=== PATIENT | female | born 1945 | race Caucasian/White ===

== ENCOUNTER → 2018-03-30 14:59 | Outpatient (CLI) | payer MEDICARE, BC, SELFPAY ==
--- NOTE | 2018-03-30 14:59 | DT_ITS ---
This patient was seen during an EMR downtime March 23, 2018 - March 30, 2018. This patient may have a combination of paper and electronic documentation or all paper documentation. All documentation is viewable within the e-chart portion of [employer] for each patient visit.
[2018-03-30 17:55] LABS: Hemoglobin 14.8 g/dl (12.0-15.0); Mean Corp Hgb Conc 33.6 g/gl (32-36); Mean Corpuscular Hgb 32.3 pg (27.0-32.0); Mean Corpuscular Volume 96.1 fL (81-99); Mean Platelet Vol. 11.1 fl (6.2-12.0); Platelet Count 215 K/mm3 (150-450); RBC Distribution Width CV 13.6 % (11.6-14.6); RBC Distribution Width SD 47.9 fl (35.1-43.9); Red Blood Count 4.58 M/mm3 (4.2-5.4); White Blood Count 7.5 K/mm3 (4.4-11.0)
[2018-03-30 17:58] LABS: CRP 6.02 mg/L (0.0-3.0)
[2018-03-30 18:02] LABS: Scan Indicated on CBC? Y/N NO
[2018-03-30 18:51] LABS: Erythrocyte Sedimentation Rate 21 mm/hr (0-30)
== END ==
PROVIDERS: Family Provider Internal Medicine; PCP Internal Medicine; Visit Provider Internal Medicine Gastroenterology
DX: K50.90 Crohn's disease, unspecified, without complications (principal)
CPT/HCPCS: 36415; 85027; 85652; 86140

== ENCOUNTER 2018-04-27 07:48 | Day surgery (SDC) | payer MEDICARE, BC, SELFPAY ==
[2018-04-27] VITALS (7 sets, daily range): BP systolic 130–168; BP diastolic 54–80; PULSE 68–88; RESP 16–18; TEMP 36.3–36.8; O2SAT 92–99; BMI 29.3
--- NOTE | 2018-04-27 | IMM_PTH ---
PATIENT: ISIDRO GRAMAJO [place] [facility] [id number] AGE/SX: 73/F ROOM: RE04/27/[address]: Dr. Anne Carrasco MD : 1945 BED: DIS: 04/27/2018 SPEC #: [id number] RECD: 04/30/18 12:53 STATUS: DEE REQ #: [id number] CRISTINA: 04/27/18 00:[address]: Anne Carrasco DEPT: IMMUNOHISTOCHEMISTRY RECD BY: Meena Peralta ENTERED: 04/30/18 12:54 SP TYPE: IMMUNO OTHR DR: Dr. Lloyd Lewis MD Tissues: A - Axillary lymph node, NOS B - Left breast, NOS Procedures: E-CAD (initial) CK7 (add) Pankeratin (initial) Pankeratin (add) PHYSICIAN & INSTITUTION [place] [id number] SPECIMEN INFORMATION: Tissue Source: A ? Left axillary sentinel lymph nodes, B ? Left breast lumpectomy Clinical Info: Left breast cancer Specimen Number: [id number] A1-A3, B3 CPT code: 30608 x2, 53192 x5 METHODOLOGY: Deparaffinized sections of prefer/formalin-fixed tissue or PAP/DQ stained slides are incubated with monoclonal/polyclonal antibodies/oligonucleotide probes. Localization is made via biotin free immunoperoxidase method. Appropriate controls are performed and reacted as expected. Results on target cell population are indicated in the following table: RESULTS: ANTIBODY / CLONE RESULT Block A1 AE1-3 (AE1/AE3/PCK26) negative CK7 (OV-TL12/30) negative Block A2 AE1-3 (AE1/AE3/PCK26) negative CK7 (OV-TL12/30) negative Block A3 AE1-3 (AE1/AE3/PCK26) negative CK7 (OV-TL12/30) negative Block B3 E-Cad (ECH-6) positive These tests were developed and their performance characteristics determined by [facility]. They may not have been cleared or approved by the U.S. Food and Drug Administration. The FDA has determined that such clearance or approval is not necessary. INTERPRETATION: A. Left axillary sentinel lymph nodes, biopsy: Three out of three lymph nodes, negative for metastatic carcinoma. B. Left breast, lumpectomy: Invasive ductal carcinoma. SJ:carter 05/04/18
--- NOTE | 2018-04-27 | AXNB_PTH ---
PATIENT: ISIDRO GRAMAJO LOC: [facility] – [place] U#:[id number] AGE/SX: 73/F ROOM: RE04/27/[address]: Dr. Anne Carrasco MD : 1945 BED: DIS: 04/27/2018 SPEC #: [id number] RECD: 04/27/18 13:42 STATUS: DEE REJusten #: [id number] CRISTINA: 04/27/18 00:[address]: Anne Carrasco DEPT: SURGICAL PATHOLOGY RECD BY: Meena Peralta ENTERED: 04/27/18 14:43 SP TYPE: AX NODE BX OTHR DR: Dr. Lloyd Lewis MD Tissues: A - Axillary lymph node, NOS B - Left breast, NOS Procedures: Frozen Section (charge) Frozen Section Add'l ([facility]) Surgery Specimen Level V HEADER OPERATION: Left breast lumpectomy after needle localization, left axillary sentinel lymph nodes PRE-OP DIAGNOSIS: Left breast cancer TISSUE SUBMITTED: A ? Left breast axillary lymph node sent to lab at 1338 FS, B ? Left breast lumpectomy (left OR for mammography at 1417), long suture ? medial, two short sutures ? lateral, one short suture - superior FROZEN SECTION DIAGNOSIS A. Left axillary sentinel lymph nodes: Three out of three lymph nodes, negative for metastatic carcinoma. SJ:carter 04/27/18 MICROSCOPIC DIAGNOSIS A. Left axillary sentinel lymph nodes, biopsy: Three out of three lymph nodes, negative for metastatic carcinoma. See comment. B. Left breast, lumpectomy with needle localization: Invasive ductal carcinoma. See comment. See cancer summary below. INVASIVE BREAST CANCER SUMMARY: Specimen ? partial breast Procedure ? excision with wire-guided localization Lymph node sampling ? sentinel lymph nodes Specimen integrity ? single intact specimen Specimen size ? 7.5 x 4.5 x 2 cm Specimen laterality - left Tumor site ? 6 o?clock, middle depth (as per EMR). Tumor size ? 1.5 x 1.5 x 1 cm Tumor focality ? single focus of invasive carcinoma Macroscopic and Microscopic extent of tumor: Skin ? not present Nipple ? not applicable Skeletal muscle ? present and free of carcinoma. Ductal carcinoma in situ (DCIS) ? no DCIS is present. Histologic type of invasive carcinoma - invasive ductal carcinoma. Histologic Grade (Eliud grade): Glandular/tubular differentiation - score 2 Nuclear pleomorphism - score 1 Mitotic count ? score 1 Overall grade - (score of ) Margins - Margins are uninvolved by invasive carcinoma. The tumor is 0.5 cm away from the closest posterior margin. Treatment effect: Response to presurgical (neoadjuvant) therapy - no known presurgical therapy. Lymph-Vascular invasion ? not identified Dermal lymph-vascular invasion ? not applicable Lymph nodes: Number of sentinel lymph nodes examined - 3 Total number of lymph nodes examined (sentinel and nonsentinel) - 3 Number of lymph nodes with macrometastases, micrometastases and isolated tumor cells - 0 Method of evaluation of sentinel lymph nodes - H & E, multiple levels and IHC. Distant metastasis ? not applicable Additional pathologic findings ? fibrocystic changes Ancillary studies - previously performed on section of tumor ([facility] [id number]). ER ? Positive (>95% of nuclei staining, strong) [place] - Positive (70% of nuclei staining, moderate) Her2 veronika ? Negative (0) Her2 by dual INO ? not performed Microcalcifications ? not identified Clinical history ? 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 ([facility] [id number]) PATHOLOGIC STAGE: pT1c pN0(sn) Mx The above summary is in compliance with [employer] (CAP) Cancer Protocols Checklist and [place] Joint Committee on Cancer (AJCC), Staging Manual, 8th Ed. SJ:carter 05/01/18 COMMENT A. The lymph nodes are negative for metastatic carcinoma on multiple H & E levels and immunohistochemical stains for cytokeratins ([id number]). B. Immunohistochemistry ([id number]) supports the above diagnosis. Case has been reviewed in consultation with Dr. Lemos who concurs with the above diagnosis. IDC:AM MICROSCOPIC DESCRIPTION Slides are reviewed. GROSS DESCRIPTION A - Received fresh for frozen section diagnosis labeled with the patient's name is a specimen designated left breast axillary lymph node. The specimen consists of a piece of yellow adipose tissue measuring 5 x 3 x 1 cm. Three nodules consistent with lymph nodes are identified measuring 0.5 to 3 cm in greatest dimension. The lymph nodes are submitted for frozen section diagnosis in entirety as follows: 1 ? frozen section, two lymph nodes, one lymph node inked black, 2 & 3 ? frozen section, one lymph node. / SJ:carter 04/27/18 B - Received fresh for intraoperative consultation labeled with the patient's name and designated left breast lumpectomy. The specimen consists of a piece of cantrell-yellow fibroadipose tissue with needle localization measuring 7.5 x 4.5 x 2 cm. The specimen is oriented as follows: long suture ? medial, two short sutures ? lateral, one short suture ? superior. The specimen is inked as follows: anterior ? yellow, posterior ? black, superior ? blue, inferior ? green, medial ? red and lateral ? orange. Serial sections reveal a cantrell, indurated tumor mass measuring 1.5 x 1.5 x 1 cm. This mass is 0.6 cm away from the closest posterior margin. This information is conveyed to the surgeon intraoperative. Sections of the rest of the specimen reveal cantrell-yellow adipose cut surfaces mixed with fibrous area. Cardiology Nurse Practitioner sections are submitted in 12 cassettes as follows: 1 & 2 ? resection margins, 2-8 ? entire tumor (2 & 3 ? tumor wire closest posterior margin), 9 ? new accounts banking representative section adjacent to the tumor, 10-12 ? new accounts banking representative sections away from the tumor. Sections will be submitted after infusion cycle. / SJ:carter 04/28/18 TC:0 CPT: 26667, 83191, 76639 x2, 28888 x2
--- NOTE | 2018-04-27 06:50 | NM_ITS ---
PROCEDURE: NUCLEAR MEDICINE Injection [place] Node - LEFT breast(s). REASON FOR EXAM: Female, 73 years old. History of breast cancer. TECHNIQUE: [place] node localization using radionuclide methods of the LEFT breast(s) was performed following subcutaneous administration of 1.1 mCi of of sulfur colloid Tc-99m. FINDINGS: 1.1 mCi of technetium labeled sulfur colloid was injected subcutaneously in 4 equal aliquots in the lower inner quadrant of the left breast. NM/Lymph Node Injection Only IMPRESSION: 1.1 mCi of technetium sulfur colloid injected in the lower inner quadrant of the left breast. Electronically Signed: Ike Martinez MD at 12:50 EDT Tel [phone], Service support ,
--- NOTE | 2018-04-27 07:49 | BI_ITS ---
SURGICAL BREAST SPECIMEN RADIOGRAPH CLINICAL: Document presence of tissue clip marker in biopsy specimen. FINDINGS: Specimen shows presence of tissue clip marker. Electronically Signed: Ike Martinez MD at 14:40 EDT Tel [phone], Service support , BI/Breast Biopsy Specimen
--- NOTE | 2018-04-27 12:39 | PCM.DC.BS ---
Discharge Diet: No Restrictions Discharge Activity: Return to Normal Activity, May not drive while taking narcotic pain medications. Lifting Restrictions: no lifting with left arm greater than 10 pounds until further notice Call your doctor if your incision/area has: Continuous Slow Oozing, Foul Smelling Discharge Call your doctor if you observe: Fever of 101 or Higher Additional Dressing/Incision Instructions:: Leave dressings in place. May get wet in shower. Do not soak - no tub baths/swimming Allergies/Adverse Reactions: Allergies No Known Allergies Allergy (Verified 04/10/18 08:26) Medications to take at Discharge Calcium Carbonate/Vitamin D3 [Caltrate 600 Plus D3 Tablet] 1 each PO DAILY 04/10/18 Diphenhydramine HCl [Allergy] 25 mg PO BID 04/10/18 Metoprolol/Hydrochlorothiazide [Lopressor Hct 100/25 (beta shaun)] 1 tablet PO DAILY 04/10/18 Multivit-Min/Iron/Folic/Lutein [Centrum Silver Women Tablet] 1 each PO DAILY 04/10/18 Primary Care Physician: Lloyd Lewis MD [Primary Care Provider] - Please Follow Up With: Anne Carrasco MD - call When: to be seen next week, please call for date and time, thank you
--- NOTE | 2018-04-27 12:46 | OP.PN_ITS ---
Immediate Post-Op Note Date of Procedure: 04/27/18 Primary Surgeon/Physician: Anne Carrasco childhood teacher: NOT,DEFINED Pre-Operative Diagnosis: left breast cancer Post-Operative Diagnosis: same Surgery/Procedure Performed:: left breast lumpectomy via wire localization, left breast sentinel lymph node biopsy Description of Surgical Findings:: inferior breast lesion at 6:00, frozen section posterior border 0.6 cm - closest , 3/3 lymph node negative Estimated Blood Loss: 30 ml Specimen's removed: left breast lumpectomy tissue, left axillary lymph rick tissue Type of Anesthesia:: General ASA Class: ASA2 Mod Systematic Disease - Admit VTE Documentation VTE Present on Admission: Yes VTE Mechan Device Prophylaxis: SCD's
[2018-04-27] MEDS: Methylene Blue 1% 100 MG/10 ML VIAL (12:48)
[2018-04-27] MEDS: Cefazolin 2 GM in 0.9% Normal Saline 100 ML IV (12:48)
[2018-04-27] MEDS: Bupiv/Epi 0.5% Mpf 30 ML Vial INFILT (13:11)
--- NOTE | 2018-04-27 14:49 | OP.PCM_ITS ---
Report of Operation Date of Procedure: 04/27/18 Pre-Operative Diagnosis: left breast cancer Post-Operative Diagnosis: same Surgery/Procedure Performed:: left breast lumpectomy via wire localization, left breast sentinel lymph node biopsy Description of Surgical Findings:: inferior breast lesion at 6:00, frozen section posterior border 0.6 cm - closest , 3/3 lymph node negative multilith operator: NOT,DEFINED Type of Anesthesia:: General Anesthesiologist: Rogelio Cristobal Specimen's removed: left breast lumpectomy tissue, left axillary lymph rick tissue Estimated Blood Loss (mL): 30 ml Fluids Replaced: 1400 ml RL Description of Procedure: After informed consent was given, the patient was brought into the Breast Stereotactic Radiology suite and placed in the prone position on the Suh stereotactic table. The patient?s left breast was placed in the opening at the head of the table. A windows systems admin compression mammogram was then obtained in the lateral view. The marker clip that was previously placed was identified. Stereo pictures of the lesion were then taken for XYZ coordinates. The Kopans needle was then positioned where it would be entering into the patient?s breast. The skin at this site was then cleansed with a surgical skin preparation. The skin and subcutaneous tissues at this site were then infiltrated with 1% xylocaine. The Kopans needle was then positioned into the patient?s breast at the proper coordinates of depth. The patient was then placed in the supine position and the wire was taped into place. A unilateral mammogram in the CC and MLO view were then taken for use in the OR. The patient tolerated this portion of the procedure well and was brought to the AC awaiting surgery in the OR. The patient was then brought to the Operating Room and placed on the operating table in the supine position. Appropriate time out protocol was followed. The patient was then placed under anesthesia. Methylene blue dye, diluted 1:1, was then injected in the periareolar area of the patient's left breast - 2.5 cc was used. The breast was then gently massaged for at least 3 minutes. The patient' s chest and neck area were then prepped with a sterile surgical skin preparation which was allowed to dry for the appropriate time period. Sterile surgical drapes were then placed. The skin and subcutaneous tissues at the incision site was then infiltrated with local anesthetic. A skin incision was made in the inferior portion of the hair bearing area of the left axilla. It was carried through to the subcutaneous tissues using electrocautery. Any hemorrhage was controlled with electrocautery. A Weitlaner retractor was used for increased operative exposure. The blue lymphatic vessels were then followed by blunt dissection. The Neoprobe transducer was brought into the operative field. 10 second count over the tumor was 244. 10 second count over the liver was 3. 10 second count in the axilla was 55. Dissection continued to the location as identified by the Neoprobe. Palpable rick tissue was noted. Blunt dissection then continued to separate this tissue from the surrounding tissues. Ligaclips were used for vessels and lymphatics. The rcik tissue was thus and brought out of the wound. Very faint bluish nodule was noted. 10 second count of the rick tissue was 47. It was forwarded to pathology for analysis. Frozen section revealed 3 lymph nodes negative for metastatic disease. The neoprobe was placed back in the axillary wound. 10 second count was 9. The axillary contents were then gently palpated for any palpable abnormality - none was found. Hemostasis was controlled by electrocautery. Shawn was placed in the axillary cavity. The deep fascia was approximated with interrupted vicryl suture. The dermal edges were reapproximated with 3-0 vicryl suture in a horizontal mattress fashion and then the skin was reapproximated with running 4- 0 monocryl in a subcuticular fashion. Cavilon and steristrips were then placed to reinforce the skin closure and proper sterile dressings were applied. The left breast lumpectomy was approached next. A wire had already been placed in the stereotactic biopsy room in the radiology department as described above. The left breast with the wire in placed was then carefully palpated out to ascertain the direction of the wire. The mammograms were also reviewed to further facilitate this. The skin and subcutaneous tissues at the site of the chosen incision site was then infiltrated with local anesthetic. A transverse incision was then made at the lower half aspect of the breast. This was made with a 15 blade scalpel and carried down through to the subcutaneous tissues. Hemostasis was controlled with electrocautery. The wire was then palpated out and the tissue surrounding it was duly noted. The breast tissue surrounding the wire was the carefully from the surrounding breast tissue with blunt and sharp dissection. This was carefully done to maintain the integrity of the biopsy cavity and also achieving a proper margin around the site. The breast tissue, once from the breast, was then forwarded to the radiology department, where a specimen mammogram revealed that the marker was within the specimen. I noted this. The breast tissue was then forwarded to pathology for analysis. Pathology review revealed that the closest margin was posterior but clear. The wound cavity was carefully examined. No further suspicious tissue was palpated or visualized. Hemostasis was carefully controlled with electrocautery. The subdermal tissues were then approximated with vicryl suture. The incision was then reapproximated close using running monocryl suture. Cavilon and steristrips were then placed to reinforce the skin closure. A sterile dressing was then applied. The patient was then brought to the Recovery Room in stable condition. - Complications none noted - Admit VTE Documentation VTE Present on Admission: Yes VTE Mechan Device Prophylaxis: SCD's
[2018-04-27] MEDS: HYDROcodone Bitartrate/Apap 5/325 Tablet PO (16:37)
== END 2018-04-27 17:21 | disposition home or self-care (01) ==
LOC: SDC 07:49 → AC 07:50
PROVIDERS: Family Provider Internal Medicine; PCP Internal Medicine; Visit Provider Surgery
PROC: (CPT 19301; principal; 2018-04-27 10:15)
DX: C50.512 Malignant neoplasm of lower-outer quadrant of left female breast (principal); K50.90 Crohn's disease, unspecified, without complications; F32.9 Major depressive disorder, single episode, unspecified; D64.9 Anemia, unspecified; F17.200 Nicotine dependence, unspecified, uncomplicated; I10 Essential (primary) hypertension; Z17.0 Estrogen receptor positive status [ER+]
CPT/HCPCS: 19301; 19281; 38792; 76098; 88305; 88307; 88331; 88332; 88341; 88342; A9541; J7050; J7120; J2405; J3490

== ENCOUNTER → 2018-09-28 08:49 | Outpatient (CLI) | payer MEDICARE, BC, SELFPAY ==
[2018-09-28 10:19] LABS: Absolute Lymphocyte Count 1.33 X10^3/ul (0.83-4.51); Absolute Neutrophil Count 4.6 X10^3/uL (2.0-7.7); Basophil# 0.02 X10^3/uL; Basophil% 0.3 % (0-1); Eosinophil# 0.09 X10^3/uL; Eosinophils% 1.3 % (0-5); Hematocrit 41.4 % (37-47); Hemoglobin 14.2 g/dl (12.0-15.0); Lymphocyte # 1.33 X10^3/ul (4.0); Lymphocyte % 19.7 % (19-41); Mean Corp Hgb Conc 34.3 g/gl (32-36); Mean Corpuscular Hgb 32.8 pg (27.0-32.0); Mean Corpuscular Volume 95.6 fL (81-99); Mean Platelet Vol. 10.7 fl (6.2-12.0); Monocyte# 0.68 X10^3/uL; Monocyte% 10.1 % (0-10); Neutrophil # 4.63 X10^3/uL (2.7-7.7); Neutrophil % 68.5 % (47-70); Platelet Count 214 K/mm3 (150-450); RBC Distribution Width CV 14.2 % (11.6-14.6); RBC Distribution Width SD 47.4 fl (35.1-43.9); Red Blood Count 4.33 M/mm3 (4.2-5.4); White Blood Count 6.8 K/mm3 (4.4-11.0)
[2018-09-28 10:20] LABS: POSITIVE COUNT NO; POSITIVE DIFFERENTIAL NO; POSITIVE MORPHOLOGY NO
[2018-09-28 10:33] LABS: AST(SGOT) 20 U/L (15-37); Alanine Aminotransfer ALT/SGPT 23 U/L (13-56); Albumin, Serum 3.5 g/dL (3.2-5.0); Alkaline Phosphatase 119 U/L (45-117); Bilirubin, Direct 0.09 mg/dL (0.00-0.30); Globulin 3.8 g/dL (2.2-4.2); Protein, Total 7.3 g/dL (6.4-8.2)
== END ==
PROVIDERS: Family Provider Internal Medicine; PCP Internal Medicine; Referring Provider Internal Medicine Gastroenterology; Visit Provider Internal Medicine Gastroenterology
DX: K50.90 Crohn's disease, unspecified, without complications (principal)
CPT/HCPCS: 36415; 80076; 85025

== ENCOUNTER 2018-11-13 20:37 | Emergency (ER) | payer MEDICARE, BC, SELFPAY ==
[2018-11-13 20:38] VITALS: BP 139/77; PULSE 74; RESP 18; TEMP 37.7; O2SAT 92; BMI 29.1
--- NOTE | 2018-11-13 20:46 | EKG12_ITS ---
Test Reason : Blood Pressure : / mmHG Vent. Rate : 068 BPM Atrial Rate : 068 BPM P-R Int : 136 ms QRS Dur : 074 ms QT Int : 394 ms P-R-T Axes : 000 057 049 degrees QTc Int : 418 ms Normal sinus rhythm Septal infarct , age undetermined Abnormal ECG Confirmed by GENA RICO, JOSE ([id number]), news videotape editor SUKHI CANSECO ([id number]) on 11/17/2018 3:13:09 PM Referred By: JANNA Confirmed By:JOSE AVERY MD
[2018-11-13 20:47] VITALS: O2SAT 92
--- NOTE | 2018-11-13 20:50 | ED.VISSUMM ---
- ER Visit Summary Date of Service: 11/13/18 Chief Complaint: Cough, fever, chills History of Present Illness: The patient is a 73 F who presents to the emergency department with upper respiratory symptoms. Patient states that she has been treated twice over the past 6 weeks for respiratory infection. She states she initially went to urgent care before Lashaun time. She was diagnosed with a URI. She is unsure if she was on antibiotics at that time. She states that she took the medication she was prescribed, but it came back after a few days. She saw Dr. Lewis in the office. She was diagnosed with sinusitis and placed on amoxicillin. She states she took it for 7 days. She was doing well until Friday of this week. She began to have cough with productive sputum. She is also had chills and sweats. She does have a history of Crohn's disease but is on no medication. She does have a significant smoking history does continue to smoke, but has never been diagnosed with asthma or COPD. Physical Examination: Vital signs reviewed General: Well-nourished, well-developed Head: Normocephalic, atraumatic Eyes: Pupils equal and reactive, extraocular muscles intact Neck, supple, no lymphadenopathy Heart: Regular rate and rhythm Respiratory: No distress, wheezing throughout Abdomen: Soft, nontender, nondistended, no peritoneal signs Back: Nontender Extremities: Nontender, no edema, no cords Skin: Normal color no rash Neuro: Alert and oriented, no focal or lateralizing deficits Test Results: [] Emergency Department Course and Treatment: The patient presents with cough and wheezing. She does have a significant history of smoking. She is not hypoxic. The patient was given Solu-Medrol, fluids, and nebulized breathing treatments. She did have improvement of aeration. Screening labs are obtained were unremarkable. X-ray shows no focal infiltrative process. The patient was ambulated through the emergency department. She did have pulse ox is 90% or greater. She had no tachypnea. At this time, I do feel that she is safe for outpatient therapy. My suspicion is that she likely has underlying COPD given her significant smoking history and chronic changes on her x-ray. I am going to treat her with doxycycline, an inhaler, and prednisone. She was counseled concerning symptoms and reasons to return. She will be discharged home. Treatment Plan: [] Disposition: Discharge Impression: 1. Acute bronchitis This note was generated with [employer] dictation software. It may contain incorrect words, spelling, and punctuation that were not noted in review of the chart prior to signing ED Disposition - Plan for ED Patient: Chief Complaint: Cough Instructions: ED Upper Resp Infec Abx Tx Prescriptions: Albuterol Inhaler [Ventolin Hfa] 2 puff INHALATION Q4H PRN PRN #1 inhaler PRN Reason: Wheezing Prednisone [Deltasone] 40 mg PO DAILY #10 tab Doxycycline 100 mg PO BID #20 cap Referrals: Lloyd Lewis MD [Primary Care Provider] -
[2018-11-13] MEDS: MethylPREDNISolone 125 MG/2 ML Vial IV (21:03)
[2018-11-13 21:10] LABS: Absolute Neutrophil Count 3.9 X10^3/uL (2.0-7.7); Basophil# 0.01 X10^3/uL; Basophil% 0.2 % (0-1); Differential Indicated SCAN CRITERIA MET; Eosinophil# 0.01 X10^3/uL; Eosinophils% 0.2 % (0-5); Hematocrit 38.7 % (37-47); Hemoglobin 12.9 g/dl (12.0-15.0); Lymphocyte % 7.9 % (19-41); Mean Corp Hgb Conc 33.3 g/gl (32-36); Mean Corpuscular Hgb 31.8 pg (27.0-32.0); Mean Corpuscular Volume 95.3 fL (81-99); Mean Platelet Vol. 9.8 fl (6.2-12.0); Monocyte# 0.76 X10^3/uL; Neutrophil # 3.89 X10^3/uL (2.7-7.7); Neutrophil % 76.5 % (47-70); POSITIVE COUNT NO; POSITIVE DIFFERENTIAL YES; POSITIVE MORPHOLOGY NO; Platelet Count 171 K/mm3 (150-450); RBC Distribution Width CV 14.6 % (11.6-14.6); RBC Distribution Width SD 50.4 fl (35.1-43.9); Red Blood Count 4.06 M/mm3 (4.2-5.4); White Blood Count 5.1 K/mm3 (4.4-11.0)
[2018-11-13 21:14] VITALS: PULSE 80; RESP 18
[2018-11-13] MEDS: Ipratropium/Albuterol Sulfate 3 ML AMPUL.NEB INHALATION (21:14)
[2018-11-13] MEDS: Albuterol 2.5 MG/3 ML VIAL.NEB. INHALATION ×2 (21:14)
[2018-11-13 21:19] LABS: Anion Gap 8 (5-15); BUN 20 mg/dL (7-18); BUN/Creat Ratio 16.7 RATIO (10-20); Calcium,Total 8.8 mg/dL (8.5-10.1); Chloride 105 mmol/L (98-107); EST Glomerular Filtration Rate 47 mL/min (>60); Est Glom Filt Rate - Afr Amer 57 mL/min (>60); Estimated Creatinine Clearance 36.59 ml/min; Glucose 107 mg/dL (74-106); Potassium 3.4 mmol/L (3.5-5.1); Sodium Level 138 mmol/L (136-145)
[2018-11-13 21:36] LABS: Differential Comment SCANNED
--- NOTE | 2018-11-13 21:45 | RAD_ITS ---
STUDY: X-RAY CHEST REASON FOR EXAM: Female, 73 years old. Cough TECHNIQUE: Frontal and lateral views COMPARISON: None. FINDINGS: The lungs are expanded. Pleural thickening at the apices. Interstitial prominence of the lungs. There is a faint nodular density in the left lung base measuring 9 mm. Normal size heart. Normal mediastinum and bryce. Normal visualized pulmonary arteries. Calcified aortic arch and descending thoracic aorta. Slightly increased kyphosis of the thoracic spine. Normal visualized ribs, clavicles, and shoulders. Surgical clips over the left axilla. There is no demonstrated abnormality of the visualized soft tissue structures of the upper abdomen. RAD/Chest PA and Lateral IMPRESSION: Interstitial prominence. Faint nodular density over the left lung base. Electronically Signed: Bam Suarez DO at 22:50 EST Tel [phone], Service support ,
[2018-11-13 22:38] VITALS: BP 134/61; PULSE 67; RESP 19; O2SAT 91
[2018-11-13 22:56] VITALS: BP 132/61; PULSE 67; RESP 17; O2SAT 91
[2018-11-13] MEDS: Doxycycline 100 MG CAPSULE PO (23:12)
== END 2018-11-13 23:13 | disposition home or self-care (01) ==
LOC: ED 21:27
PROVIDERS: Emergency Provider Emergency Medicine; Family Provider Internal Medicine; PCP Internal Medicine
DX: J20.9 Acute bronchitis, unspecified (principal); K50.90 Crohn's disease, unspecified, without complications; Z72.0 Tobacco use
CPT/HCPCS: 71046; 80048; 85025; 87804; 93005; 94640; 96361; 96374; 99285; J7040; A4216

== ENCOUNTER → 2019-02-17 11:55 | Outpatient (CLI) | payer MEDICARE, BC, SELFPAY ==
[2019-02-17 14:16] LABS: Absolute Lymphocyte Count 1.66 X10^3/ul (0.83-4.51); Absolute Neutrophil Count 3.1 X10^3/uL (2.0-7.7); Basophil# 0.03 X10^3/uL; Basophil% 0.5 % (0-1); Eosinophil# 0.11 X10^3/uL; Hematocrit 37.7 % (37-47); Hemoglobin 12.7 g/dl (12.0-15.0); Lymphocyte # 1.66 X10^3/ul (4.0); Lymphocyte % 29.7 % (19-41); Mean Corp Hgb Conc 33.7 g/gl (32-36); Mean Corpuscular Hgb 31.5 pg (27.0-32.0); Mean Corpuscular Volume 93.5 fL (81-99); Mean Platelet Vol. 10.8 fl (6.2-12.0); Monocyte# 0.64 X10^3/uL; Monocyte% 11.5 % (0-10); Neutrophil # 3.13 X10^3/uL (2.7-7.7); Neutrophil % 56.1 % (47-70); Platelet Count 180 K/mm3 (150-450); RBC Distribution Width CV 13.6 % (11.6-14.6); RBC Distribution Width SD 44.9 fl (35.1-43.9); Red Blood Count 4.03 M/mm3 (4.2-5.4); White Blood Count 5.6 K/mm3 (4.4-11.0)
[2019-02-17 14:17] LABS: POSITIVE COUNT NO; POSITIVE DIFFERENTIAL NO; POSITIVE MORPHOLOGY NO
[2019-02-17 14:25] LABS: AST(SGOT) 24 U/L (15-37); Alanine Aminotransfer ALT/SGPT 25 U/L (13-56); Albumin, Serum 3.8 g/dL (3.2-5.0); Alkaline Phosphatase 98 U/L (45-117); Bilirubin, Direct 0.09 mg/dL (0.00-0.30); Globulin 3.6 g/dL (2.2-4.2); Protein, Total 7.4 g/dL (6.4-8.2)
== END ==
PROVIDERS: Family Provider Internal Medicine; PCP Internal Medicine; Referring Provider Internal Medicine Gastroenterology; Visit Provider Internal Medicine Gastroenterology
DX: K50.90 Crohn's disease, unspecified, without complications (principal)
CPT/HCPCS: 36415; 80076; 85025

== ENCOUNTER → 2022-07-31 | Outpatient (CLI) | payer MEDICARE, BC, SELFPAY ==
[2022-07-31 15:18] LABS: Hematocrit 38.8 % (37-47); Hemoglobin 13.2 g/dL (12.0-15.0); Mean Corpuscular Hgb 31.4 pg (27.0-32.0); Mean Corpuscular Volume 92.4 fL (81-99); Mean Platelet Vol. 11.2 fl (6.2-12.0); Platelet Count 246 K/mm3 (150-450); RBC Distribution Width CV 14.4 % (11.6-14.6); White Blood Count 9.5 K/mm3 (4.4-11.0)
[2022-07-31 15:28] LABS: CRP 6.26 mg/L (0.0-3.0)
[2022-07-31 15:43] LABS: Vitamin B12 356 pg/mL (211-911)
[2022-07-31 15:58] LABS: Erythrocyte Sedimentation Rate 25 mm/hr (0-30)
== END | disposition home or self-care (01) ==
PROVIDERS: PCP Internal Medicine; Referring Provider Internal Medicine Gastroenterology; Visit Provider Internal Medicine Gastroenterology
DX: K50.90 Crohn's disease, unspecified, without complications (principal)
CPT/HCPCS: 36415; 82607; 85027; 85652; 86140

== ENCOUNTER 2022-08-20 00:54 | Emergency (ER) | payer MEDICARE, BC, SELFPAY ==
[2022-08-20 00:54] VITALS: BP 147/65; PULSE 84; RESP 18; TEMP 37.2; O2SAT 94; BMI 32.3
[2022-08-20 01:01] VITALS: O2SAT 95
--- NOTE | 2022-08-20 01:23 | EKG12_ITS ---
Test Reason : DYSRHYTHMIA Blood Pressure : / mmHG Vent. Rate : 076 BPM Atrial Rate : 076 BPM P-R Int : 186 ms QRS Dur : 080 ms QT Int : 404 ms P-R-T Axes : 060 042 049 degrees QTc Int : 454 ms Sinus rhythm with occasional Premature ventricular complexes Otherwise normal ECG Confirmed by GENA RICO, JOSE ([id number]), slot editor INDU FUENTES ([id number]) on 08/21/2022 9:29:58 AM Referred By: Confirmed By:JOSE AVERY MD
--- NOTE | 2022-08-20 01:23 | RAD_ITS ---
EXAM: XR CHEST, 1 VIEW CLINICAL INDICATION: dyspnea dyspnea TECHNIQUE: Frontal view of the chest. This report was created using [employer] report generation technology. COMPARISON: 11/13/2018. FINDINGS: LUNGS AND PLEURAL SPACES: There is an apparent 6.5 cm ring-shaped density overlying the right midlung field which was not present on previous study. This may be an overlying artifact. Cavitary lesion is not excluded. No pneumothorax. No effusion. HEART: Unremarkable. Cardiac silhouette not enlarged. MEDIASTINUM: Central airways and mediastinal contour are unremarkable. BONES/JOINTS: Unremarkable. SOFT TISSUES: Unremarkable. VASCULATURE: There is atherosclerotic calcification of the aortic arch. RAD/Chest 1 View (Portable) IMPRESSION: Apparent 6.5 cm ring-shaped density overlying the right midlung field may be an overlying artifact, however, cavitary lesion cannot be excluded. Consider repeat study to determine persistence or CT scan of the chest for further evaluation. Electronically Signed: Yovani Woodward MD at 2:07 EDT ,
--- NOTE | 2022-08-20 01:28 | EDS_ITS ---
HPI History of Present Illness Chief Complaint: Shortness of Breath Informant: patient Narrative Narrative: This is a 77-year-old female presenting to the emergency room with a chief complaint of dyspnea. Patient states that earlier today she received a COVID booster and influenza vaccination. She states that she has been very busy all day and at 1030 tonight was doing many different activities around the house. She states that she began to feel short of breath. She felt that her heart was beating faster than normal. At around 0030 she woke her up asking to take her to the emergency department. Currently she states that she feels pretty good. While she was feeling short of breath she was not experiencing any pain or any coughing. She had no syncope or lightheadedness. She states she was worried about her oxygen levels. She has not been ill recently. [facility] Medical History Bowel perforation Breast cancer Crohn's disease Hypertension Home Medications amlodipine 10 mg tablet 10 mg PO DAILY 08/20/22 [History Last Taken Unknown] chlorthalidone 25 mg tablet 25 mg PO DAILY 08/20/22 [History Last Taken Unknown] gabapentin 100 mg capsule 100 mg PO QHS 08/20/22 [History Last Taken Unknown] letrozole 2.5 mg tablet 2.5 mg PO DAILY 08/20/22 [History Last Taken Unknown] metoprolol tartrate 100 mg tablet 50 mg PO BID 08/20/22 [History Last Taken Unknown] potassium chloride 20 mEq tablet,extended release 40 meq PO DAILY #10 tabs 08/20/22 [Rx Last Taken Unknown] Allergy/AdvReac Type Severity Reaction Status Date / Time [id number]-XrV Reductase Allergy Swelling Verified 08/20/22 01:03 Inhibitor Surgical History Hx of lumpectomy Social History (Updated 08/20/22 @ 01:[address] Gigi Barbosa DO) Smoking Status: Former smoker substance use type: does not use ROS ROS ED Constitutional Constitutional ED: Denies chills or weight loss Eyes Eyes: Denies change in vision or diplopia ENT ENT ED: Denies ear pain, rhinorrhea or sore throat Cardiovascular Cardiovascular: Reports racing heartbeat; Denies chest pain, orthopnea or palpitations Respiratory/Chest Respiratory/Chest: Reports dyspnea; Denies cough or orthopnea Gastrointestinal Gastrointestinal: Denies abdominal pain, diarrhea, nausea or vomiting Genitourinary Genitourinary ED: Denies dysuria, hematuria or urinary frequency Musculoskeletal Musculoskeletal: Denies arthralgias or myalgias Integumentary Denies abscess or rash Neurologic Neurologic: Denies headache(s) or weakness Psychiatric Psychiatric: Denies anxiety, depression, suicidal ideation or suicidal thoughts Endocrine Endocrinology: Denies polydipsia, polyphagia or polyuria Allergic/Immunologic Allergic/Immunologic ED: Denies mouth swelling, tongue swelling or urticaria EXAM Physical Exam Const Vital Signs: 08/20/22 00:54 08/20/22 01:01 08/20/22 03:11 Temperature 99.0 F Temperature Source Temporal Pulse Rate 84 81 Respiratory Rate 18 16 Respiratory Effort Short of Breath Respiratory Depth Normal Respiratory Pattern Normal Blood Pressure 147/65 H 151/71 H Blood Pressure Mean 92 97 Pulse Ox 94 94 Oxygen Delivery Method Room Air Room Air Room Air Positive well nourished and well developed General Appearance ED: well developed HEENT Reports normocephalic, head/scalp atraumatic and moist mucous membranes Eyes PERRL and EOMs intact bilaterally Neck no lymphadenopathy, supple and no JVD Resp normal respiratory effort and clear to auscultation bilaterally Cardio regular rate, regular rhythm and no murmurs GI normal to inspection, nondistended, normoactive bowel sounds and non-tender Palpation: soft Back/Spine no CVA tenderness and normal ROM Extremity normal to inspection General Extremety ED: Negative for edema General Extremity: Negative for edema Neuro oriented x3 and CN's II-XII intact bilaterally Sensorium / Orientation: alert Motor Exam: strength 5/5 throughout Psych mental status grossly normal Mood & Affect: Negative for depressed or tearful Skin no rashes or lesions noted and no wounds MDM MDM MDM Narrative Medical decision making narrative: My interpretation of the chest x-ray is a new right lung mass. CBC is normal CMP shows a potassium of 2.9 and a troponin of 9. She is remained in a sinus rhythm on the monitor. CTA of the chest was ordered which was read by radiology and reviewed for myself. This shows an adrenal mass and a cavitary lesion concerning for neoplasm in the right lung. No pulmonary embolism. The patient received 40 mEq of liquid potassium. She stated this made her very sick and she received Zofran. On the way back from the bathroom when I was awaiting the CT results she stopped inform me that she is tired of being here that she is waited long enough and that the results should be in. She states that she feels horrible and just wants to leave home. Her comments were not made in a pleasant manner patient was informed of her results and that she should follow-up with oncology and her primary care doctor as well as replace her potassium and she was discharged Lab Data Attestation: I reviewed the patient's lab results. Labs: Laboratory Results - last 24 hr 08/20/22 08/20/22 01:35 01:35 WBC 9.0 RBC 4.13 L Hgb 13.1 Hct 37.2 MCV 90.1 MCH 31.7 MCHC 35.2 RDW Std Deviation 47.5 H RDW Coeff of Carmen 14.6 Plt Count 175 MPV 10.1 Immature Gran % (Auto) 0.300 Neut % (Auto) 88.2 H Lymph % (Auto) 2.7 L Becker % (Auto) 7.5 Eos % (Auto) 1.1 Baso % (Auto) 0.2 Absolute Neuts (auto) 7.9 H Absolute Lymphs (auto) 0.24 L Nucleated RBC % 0 Sodium 139 Potassium 2.9 L Chloride 101 Carbon Dioxide 30.0 Anion Gap 8 BUN 22 H Creatinine 1.18 H Estim Creat Clear Calc 32.08 Est GFR (MDRD) Af Amer 57 L Est GFR (MDRD) Non-Af 47 L BUN/Creatinine Ratio 18.6 Glucose 129 H Calcium 9.9 Troponin I High Sens 9 Radiography Diagnostic Testing: Clinical Impression(s) from Imaging Studies Chest X-Ray 08/20/22 01:23 IMPRESSION: Apparent 6.5 cm ring-shaped density overlying the right midlung field may be an overlying artifact, however, cavitary lesion cannot be excluded. Consider repeat study to determine persistence or CT scan of the chest for further evaluation. Electronically Signed: Yovani Woodward MD at 2:07 EDT , Chest CTA 08/20/22 01:49 IMPRESSION: 1. 5.6 cm cavitary lesion in the right lower lobe, possibly representing necrotic neoplasm or atypical infection. 2. No evidence for pulmonary embolism, aortic aneurysm, or aortic dissection. 3. A few mildly enlarged mediastinal lymph nodes. 4. Atherosclerosis. 5. 3 cm right adrenal nodule with indeterminate attenuation characteristics. Consider a low dose, non-contrast adrenal CT or chemical-shift adrenal MRI follow-up study. Would also recommend biochemical evaluation and/or endocrine consult. 6. Small hiatal hernia. 7. Gallstones. 8. 2.9 cm left thyroid nodule. Recommend further evaluation with thyroid ultrasound. Electronically Signed: Yovani Woodward MD at 3:12 EDT Reading Location ID and State: [facility] / [place] , Service support , EKG Initial EKG: Attestation: I personally reviewed and interpreted this EKG as follows: Comments: Sinus rhythm with occasional PVCs ventricular rate of 76 bpm Prior EKG tracings: available for review Prior: Unchanged Discharge Plan Triage Chief Complaint: Shortness of Breath ED Provider: Gigi Barbosa Dx/Rx/DC Orders Clinical Impression: Acute dyspnea, Diuretic-induced hypokalemia, Cavitating mass in right lower lung lobe, Adrenal mass Instructions: Hypokalemia Dc, ED Dyspnea Prescriptions: New potassium chloride 20 mEq tablet extended release 40 meq PO DAILY Qty: 10 0RF No Action metoprolol tartrate 100 mg tablet 50 mg PO BID Label Comments: TAKE 1/2 TABLET BY MOUTH TWICE DAILY chlorthalidone 25 mg tablet 25 mg PO DAILY Label Comments: TAKE 1 TABLET BY MOUTH EVERY DAY amlodipine 10 mg tablet 10 mg PO DAILY Label Comments: TAKE 1 TABLET BY MOUTH EVERY DAY gabapentin 100 mg Capsule 100 mg PO QHS letrozole 2.5 mg tablet 2.5 mg PO DAILY Label Comments: TAKE 1 TABLET BY MOUTH EVERY DAY Primary Care Provider: Lloyd Lewis Referrals: Terry Nolan DO [Med Staff - Active Staff] - As soon as possible Lloyd Lewis MD [Primary Care Provider] - Disposition Disposition: Home, Self Care
[2022-08-20 01:39] LABS: Absolute Lymphocyte Count 0.24 X10^3/uL (0.83-4.51); Absolute Neutrophil Count 7.9 X10^3/uL (2.0-7.7); Basophil# 0.02 X10^3/uL; Basophil% 0.2 % (0-1); Eosinophils% 1.1 % (0-5); Hematocrit 37.2 % (37-47); Hemoglobin 13.1 g/dL (12.0-15.0); Lymphocyte # 0.24 X10^3/ul (0.83-4.51); Lymphocyte % 2.7 % (19-41); Mean Corp Hgb Conc 35.2 g/dL (32-36); Mean Corpuscular Hgb 31.7 pg (27.0-32.0); Mean Corpuscular Volume 90.1 fL (81-99); Mean Platelet Vol. 10.1 fl (6.2-12.0); Monocyte# 0.67 X10^3/uL; Monocyte% 7.5 % (0-10); NRBC Flagged by Analyzer 0 % (0-5); Neutrophil # 7.92 X10^3/uL (2.7-7.7); Neutrophil % 88.2 % (47-70); POSITIVE DIFFERENTIAL YES; Platelet Count 175 K/mm3 (150-450); RBC Distribution Width CV 14.6 % (11.6-14.6); RBC Distribution Width SD 47.5 fl (35.1-43.9); Red Blood Count 4.13 M/mm3 (4.2-5.4)
[2022-08-20 01:40] LABS: Differential Indicated SCAN CRITERIA MET
--- NOTE | 2022-08-20 01:49 | CT_ITS ---
EXAM: CT ANGIOGRAPHY CHEST WITHOUT AND WITH INTRAVENOUS CONTRAST CLINICAL INDICATION: dyspnea abnormal chest xray dyspnea abnormal chest xray. History of left-sided breast cancer with lumpectomy and radiation therapy in 2018. Hypertension. TECHNIQUE: Helically acquired angiography images were obtained of the chest without and with intravenous contrast. This CT exam was performed using one or more of the following dose reduction techniques: automated exposure control, adjustment of the mA and/or kV according to patient size, and/or use of iterative reconstruction technique. This report was created using [employer] report generation technology. MIP reconstructed images were created and reviewed. CONTRAST: IV 100mL Isovue-370 RADIATION DOSE: CTDIvol = 15.66 mGy, DLP = 539.53 mGy-cm COMPARISON: Chest x-ray 08/20/2023. FINDINGS: PULMONARY ARTERIES: Unremarkable. Normal in caliber. No evidence of pulmonary embolism. AORTA: There is atherosclerotic calcification of the thoracic aorta. Normal in caliber. No evidence of dissection. GREAT VESSELS OF AORTIC ARCH: Unremarkable. Normal in caliber. No evidence of dissection. LUNGS AND PLEURAL SPACES: There is a 5 x 5.6 x 4 cm thick walled irregular cavitary lesion in the superior segment of the right lower lobe. This may represent a cavitary neoplasm or atypical infectious process, including mycoplasmal infection or fungal infection. No pleural effusion or thickening. No pneumothorax. HEART: There are coronary artery calcifications. No pericardial effusion. No signs of right heart strain, ratio of right ventricle to left ventricle measures less than 1. MEDIASTINUM: There are mildly enlarged mediastinal lymph nodes with short axis diameters ranging up to 1.1 cm in the subcarinal and precarinal regions. There is a small hiatal hernia. Esophagus is unremarkable. THYROID: There is a 2.9 cm left thyroid nodule. BONES/JOINTS: There are multilevel degenerative changes in the visualized spine. No suspicious lytic or blastic abnormality. GALLBLADDER AND BILE DUCTS: There are multiple gallstones. ADRENALS: There is a 3 cm right adrenal nodule with indeterminate attenuation characteristics. KIDNEYS AND URETERS: There are multiple foci of cortical scarring in the visualized left kidney. There are small nonobstructive renal calculi in the visualized left kidney. CT/CTA Chest W/WO Contrast IMPRESSION: 1. 5.6 cm cavitary lesion in the right lower lobe, possibly representing necrotic neoplasm or atypical infection. 2. No evidence for pulmonary embolism, aortic aneurysm, or aortic dissection. 3. A few mildly enlarged mediastinal lymph nodes. 4. Atherosclerosis. 5. 3 cm right adrenal nodule with indeterminate attenuation characteristics. Consider a low dose, non-contrast adrenal CT or chemical-shift adrenal MRI follow-up study. Would also recommend biochemical evaluation and/or endocrine consult. 6. Small hiatal hernia. 7. Gallstones. 8. 2.9 cm left thyroid nodule. Recommend further evaluation with thyroid ultrasound. Electronically Signed: Yovani Woodward MD at 3:12 EDT ,
[2022-08-20 02:05] LABS: Anion Gap 8 (5-15); BUN 22 mg/dL (7-18); BUN/Creat Ratio 18.6 RATIO (10-20); Calcium,Total 9.9 mg/dL (8.5-10.1); Chloride 101 mmol/L (98-107); Creatinine, Serum 1.18 mg/dL (0.55-1.02); EST Glomerular Filtration Rate 47 mL/min (>60); Est Glom Filt Rate - Afr Amer 57 mL/min (>60); Estimated Creatinine Clearance 32.08 ml/min; Glucose 129 mg/dL (74-106); Potassium 2.9 mmol/L (3.5-5.1); Sodium Level 139 mmol/L (136-145); Troponin-I HS 9 pg/mL (3.0-54.0)
[2022-08-20] MEDS: Potassium Chloride Oral Soln 20 MEQ/15 ML UDC 40 MEQ PO (02:45)
[2022-08-20 03:11] VITALS: BP 151/71; PULSE 81; RESP 16; O2SAT 94
== END 2022-08-20 03:32 | disposition home or self-care (01) ==
PROVIDERS: Emergency Provider Emergency Medicine; PCP Internal Medicine; Visit Provider Emergency Medicine
DX: R06.02 Shortness of breath (principal); E27.8 Other specified disorders of adrenal gland; R91.8 Other nonspecific abnormal finding of lung field; E87.6 Hypokalemia; I10 Essential (primary) hypertension; Z87.891 Personal history of nicotine dependence
CPT/HCPCS: 71045; 71275; 80048; 84484; 85025; 93005; 99285; Q9967; A4216

== ENCOUNTER → 2022-09-06 | Outpatient (CLI) | payer MEDICARE, BC, SELFPAY ==
--- NOTE | 2022-09-06 | FLU_PTH ---
PATIENT: ISIDRO GRAMAJO LOC: [facility] U#:[id number] AGE/SX: 77/F ROOM: RE09/06/[address]: Dr. Gigi Salazar MD : 1945 BED: DIS: 09/06/2022 SPEC #: [id number] RECD: 09/09/22 10:13 STATUS: DEE ALEX #: [id number] CRISTINA: 09/06/22 00:[address]: Gigi Salazar DEPT: CYTOLOGY RECD BY: Darby Morales ENTERED: 09/09/22 10:14 SP TYPE: Fluid OTHR DR: Dr. Lloyd Lewis MD Tissues: A - Thyroid gland, NOS B - Thyroid gland, NOS Procedures: Special Stain Group II Surgery Specimen Level IV Cytospin Fluid Cytology Other HEADER OPERATION: Fine needle aspiration of left thyroid PRE-OP DIAGNOSIS: Abnormal thyroid ultrasound TISSUE SUBMITTED: A ? FNA left thyroid fluid, B - FNA left thyroid slides x12 DIAGNOSIS CYTOLOGY A. Left thyroid nodule fluid, fine needle aspiration (cytospin and cell block): A few clusters of benign follicular cells noted. B. Left thyroid nodule, fine needle aspiration (smears): Consistent with benign/follicular colloid nodule with focal cystic changes (New Era Category II). Adequate for evaluation. See comment. SJ:carter 09/10/2022 COMMENT Correlation with clinical, radiologic findings and appropriate follow up are necessary. CYTOLOGY STUDY Slides are reviewed. CYTOLOGY GROSS A - Received is 30 ml of brown cloudy fluid labeled with the patient's name and and designated per the requisition as left thyroid. Submitted for cytology preparation including cell block. B - Received are 12 smears labeled with the patient's name and designated per the requisition as left thyroid. Submitted for staining. / carter 09/09/2022 TC:5 CPT: 84551 x2, 66446
== END | disposition home or self-care (01) ==
LOC: LABSPEC 15:24
PROVIDERS: PCP Internal Medicine; Visit Provider Surgery
DX: R93.89 Abnormal findings on diagnostic imaging of other specified body structures (principal)
CPT/HCPCS: 88108; 88161; 88305; 88313

== ENCOUNTER → 2022-09-19 | Outpatient (CLI) | payer MEDICARE, BC, SELFPAY ==
[2022-09-19] VITALS (9 sets, daily range): BP systolic 112–165; BP diastolic 41–65; PULSE 58–65; RESP 17–23; TEMP 36.6; O2SAT 37–97; BMI 31.1
--- NOTE | 2022-09-19 | IMM_PTH ---
PATIENT: ISIDRO GRAMAJO LOC: CT U#:[id number] AGE/SX: 77/F ROOM: RE09/19/[address]: Dr. Terry Nolan DO : 1945 BED: DIS: 09/19/2022 SPEC #: [id number] RECD: 09/20/22 12:23 STATUS: SOUDana REQ #: [id number] CRISTINA: 09/19/22 00:[address]: Terry Nolan DEPT: IMMUNOHISTOCHEMISTRY RECD BY: Meena Peralta ENTERED: 09/20/22 12:26 SP TYPE: IMMUNO OTHR DR: Dr. Lloyd Lewis MD Tissues: Adrenal gland, NOS Procedures: Synapto (add) BCL-2 (add) John Ret (add) CD56 (add) CEA (add) CHROMO (add) CK20 (add) CK7 (add) CK8 (add) JORJE (add) KI-67 (add) Vimentin (add) Pankeratin (initial) MELAN-A (add) NSE (add) S-100 (add) PHYSICIAN & [address] [address] SPECIMEN INFORMATION: Tissue Source: Right adrenal mass Clinical Info: Right adrenal mass Specimen Number: [id number] CPT code: 72711, 45556 x15 METHODOLOGY: Deparaffinized sections of prefer/formalin-fixed tissue or PAP/DQ stained slides are incubated with monoclonal/polyclonal antibodies/oligonucleotide probes. Localization is made via biotin free immunoperoxidase method. Appropriate controls are performed and reacted as expected. Results on target cell population are indicated in the following table: RESULTS: ANTIBODY / CLONE RESULT AE1-3 (AE1/AE3/PCK26) negative CK7 (OV-TL12/30) negative CK8 (57mhxcI44) negative CK20 (KS20.8) negative BCL-2 (bcl-2/100/D5) positive, focal Vimentin (V9) positive Melan A (A103) positive S-100 (4C4.9) negative CD56 (123C3.D5) positive Chromo (LK2H10) negative Synapto (polyclonal) positive NSE Neuron Specific Enolase negative CALRET (polyclonal) positive JORJE (E29) negative CEA (11-7/TF-3HB-1) negative Ki-67 (30-9) positive, rare cells These tests were developed and their performance characteristics determined by [facility]. They may not have been cleared or approved by the U.S. Food and Drug Administration. The FDA has determined that such clearance or approval is not necessary. The above immunohistochemical/dualISH markers are ordered and reviewed by the Pathologist. INTERPRETATION: Right adrenal mass, biopsy: Consistent with benign adrenal cortical tissue. No evidence of metastatic carcinoma. AM:carter 09/23/2022
--- NOTE | 2022-09-19 07:40 | CT_ITS ---
PROCEDURE: CT GUIDED biopsy of the right adrenal gland. DATE: 09/19/2022. INDICATION: Female, 77 years old. Right adrenal mass. History of breast carcinoma. PHYSICIAN: Ike Martinez M.D. RADIATION DOSAGE (If Supplied By Facility): CTDIvol = ( 14.6 ) mGy, DLP = ( 269.18 ) mGycm. Individualized dose optimization techniques were utilized. PROCEDURE: The risks, benefits, and alternatives to the procedure were explained to the patient. The specific risk of hemorrhage requiring further treatment or intervention was detailed and accepted. Follow-up instructions were discussed with the patient as well. Written informed consent was obtained. The patient was brought into the CT suite and placed in the prone position. . An appropriate entry site was identified. The overlying skin was prepped and draped in the usual sterile fashion. 1% lidocaine was administered subcutaneously for local anesthesia. Conscious sedation was performed. The patient received 2 mg of VERSED and 50 mcg of FENTANYL intravenously. Conscious sedation was started at 8:33 AM and terminated at 9:10 AM. The patient was independently monitored by the department nurse. Under CT guidance, a total of 10 passes were performed utilizing a 19-gauge core biopsy needle system. The specimens were then placed in the appropriate fluid and transported to the laboratory for analysis. Hemostasis was obtained. The patient tolerated the procedure well without immediate complications. CT/Biopsy/Inj or Needle Placement IMPRESSION: Successful CT guided right adrenal gland biopsy, as described above. Conscious sedation protocol was followed. Electronically Signed: Ike Martinez MD at 9:54 EST ,
[2022-09-19 07:44] LABS: Platelet Count 228 K/mm3 (150-450)
[2022-09-19 07:55] LABS: Prothrombin Time (Protime)PT. 12.8 SECONDS (11.7-14.9)
[2022-09-19 07:56] LABS: Partial Thromboplast Time 30.6 Seconds (24.1-36.2)
[2022-09-19] MEDS: fentaNYL 100 MCG/2 ML Ampul IV (08:33)
[2022-09-19] MEDS: Midazolam 2 MG/2 ML Syringe IV (08:33)
[2022-09-19] MEDS: Lidocaine 2% (20 ml mdv) 20 ML Vial INFILT (08:50)
--- NOTE | 2022-09-19 08:50 | ASPIGT_PTH ---
PATIENT: ISIDRO GRAMAJO LOC: [place] U#:[id number] AGE/SX: 77/F ROOM: RE09/19/[address]: Dr. Terry Nolan DO : 1945 BED: DIS: 09/19/2022 SPEC #: [id number] RECD: 09/19/22 09:41 STATUS: DEE ALEX #: [id number] CRISTINA: 09/19/22 08:[address]: Terry Nolan DEPT: SURGICAL PATHOLOGY RECD BY: Darby Morales ENTERED: 09/19/22 09:43 SP TYPE: ASP RAD OTHR DR: Dr. Lloyd Lewis MD Tissues: Adrenal gland, NOS Procedures: FNA Specimen Adequacy Special Stain Group II Surgery Specimen Level IV Imprint (control) HEADER OPERATION: CT-guided right adrenal biopsy PRE-OP DIAGNOSIS: Right adrenal mass TISSUE SUBMITTED: Right adrenal mass 18-gauge core x10 MICROSCOPIC DIAGNOSIS Right adrenal mass, CT-guided core biopsy: Benign adrenal tissue. See comment. AM:carter 09/20/2022 COMMENT The specimen is evaluated at the time of biopsy by Dr. Lemos. Immediate Evaluation: Pass #1 - Negative for malignant cells. Blood. Pass #2 ? Consistent with adrenal cortical cells. No evidence of metastatic carcinoma. There is no evidence of metastatic malignancy. Clinical correlation is suggested. Immunohistochemistry ([id number]) supports the above diagnosis. MICROSCOPIC DESCRIPTION Slides are reviewed. GROSS DESCRIPTION Received in fixative is one container labeled with the patient's name and designated right adrenal biopsy. The specimen consists of multiple minute fragments of dark cantrell soft tissue that in aggregate measure 1 x <0.1 x <0.1 cm. The specimen is totally submitted in one cassette. / AM:carter 09/19/2022 TC:5 CPT: 17809, 72237
== END | disposition home or self-care (01) ==
PROVIDERS: PCP Internal Medicine; Referring Provider Internal Medicine Hematology & Oncology; Visit Provider Internal Medicine Hematology & Oncology
DX: E27.9 Disorder of adrenal gland, unspecified (principal)
CPT/HCPCS: 49180; 36415; 77012; 85049; 85610; 85730; 88172; 88305; 88313; 88341; 88342; 99156; 99157; J7050; A4216

== ENCOUNTER → 2022-09-25 | Outpatient (CLI) | payer MEDICARE, BC, SELFPAY ==
--- NOTE | 2022-09-25 08:00 | PET_ITS ---
EXAMINATION: FDG PET-CT INDICATIONS: A 77-year-old female with history of pulmonary nodularity. COMPARISON EXAMINATION: None available INDEX LESION SIZE SUV INTERPRETATION Right lower lung, right lower lobe cavitated mass 59.8-mm (largest) 23.9 (max) Histopathologic investigation recommended secondary to quantitative degree of uptake Bilateral thoracic perihilum and interlobar lymph node distributions 13.2-mm (largest) 6.2 (max) Fulfills quantitative criteria for viable neoplasm TECHNIQUE: Following the intravenous administration of 12.84 mCi of F-18 deoxyglucose via the right antecubital fossa, multiplanar image acquisitions of the neck, chest, abdomen and pelvis to level of mid thigh, obtained at one hour post radiopharmaceutical administration contemporaneously interpreted with the current CT of the neck, chest, abdomen and pelvis, to level of mid thigh, dated 09/25/22 via coregistration reveals: BLOOD GLUCOSE LEVEL:?? 138 mg/dl?HEIGHT:?62 inches?WEIGHT: 170 lbs. FINDINGS: Head/Neck: There is no evidence of abnormal increased glucose metabolism in the pharyngeal mucosal space, parapharyngeal space, bilateral-lateral and anterior neck, hypopharynx and distribution of the laryngeal structures. The visualized portion of the cerebral cortical-subcortical structures demonstrate symmetric and preserved glucose metabolism. CHEST: Facilitated radiopharmaceutical concentration is noted in the right lower lung, right lower lobe cavitated mass manifesting circumferential increased uptake with central photopenia. The calculated maximal standard uptake value is 23.9. The maximal axial diameter of the metabolic, morphologic abnormality is 59.8-mm. Increased FDG concentration is noted in the bilateral thoracic perihilum involving lymph node station 10LR and the interlobar lymph node distribution to the right of the midline involving lymph node station 11R. The calculated maximal standard uptake value is 6.2, with a maximal axial diameter of 13.2-mm. Pertinent chest CT findings are as follows. Calcification is defined within the left breast. The associated increase in FDG uptake demonstrates a calculated maximal standard uptake value of 1.1. Subcentimeter bilateral axillary soft tissue densities are non-glucose avid. Pulmonary arterial calcification is observed. There is atherosclerotic calcification defined in the thoracic aorta without evidence of dilatation-aneurysm formation. There are no additional foci of increased tracer uptake noted in the bilateral hemithorax pulmonary parenchyma. Abdomen/Pelvis: Normal physiologic distribution of the radiopharmaceutical is apparent in the hepatic (3.0) and splenic parenchyma, both renal units, bladder and visualized intestinal tract. Pertinent abdomen and pelvis CT findings are as follows. There is atherosclerotic calcification defined in the abdominal aorta without evidence of dilatation-aneurysm formation. Abdominal and pelvic arterial calcification is observed. Cholelithiasis is demonstrated. Calcification is defined in the left renal unit. Postsurgical change is defined in the bilateral anterior pelvic wall. Calcifications are apparent in the lower pelvis associated with the uterus and adnexal regions. Occasional colonic diverticula are encountered without evidence of diverticulitis. Skeletal: Degenerative changes are noted in the cervical, thoracic and lumbar spine without evidence of increased radiopharmaceutical concentration. There are no well-defined sclerotic-lytic changes manifest on review of the appendicular-axial skeletal structures. PET/PET/CT Tumor Base -Thigh Init IMPRESSION: 1. Increased FDG concentration correlating with the cavitated mass localized to the right lower lung field warrants histopathologic investigation secondary to the quantitative degree of uptake. 2. Enhanced radiopharmaceutical concentration noted in the bilateral thoracic perihilum and right interlobar lymph node distribution fulfills quantitative criteria for viable neoplasm with single point technique. (Maryanne et al, Journal of Clinical Oncology 16:2142, 1998). Electronic Signature Cesar Nuno D.O. Accurate Quantification of SUVs for this report are calculated using the exclusive [employer] Technology. (U.S. Patent No. [phone] B2 US [phone] [place] patent [phone]). Standardization and correction of the FDG SUV metric via [employer] technology allow for vendor non-specific objective quantitative examination comparison and optimization of the sensitivity and specificity of the FDG PET-CT examination. Electronically Signed: Cesar Nuno, at 9:37 EST ,
== END | disposition home or self-care (01) ==
LOC: ONC 07:38
PROVIDERS: PCP Internal Medicine
DX: R91.1 Solitary pulmonary nodule (principal); C50.919 Malignant neoplasm of unspecified site of unspecified female breast
CPT/HCPCS: 78815; A9552

== ENCOUNTER 2022-10-08 07:40 | Outpatient (CLI) | payer MEDICARE, BC, SELFPAY ==
[2022-10-08] VITALS (11 sets, daily range): BP systolic 101–151; BP diastolic 31–73; PULSE 57–69; RESP 12–20; TEMP 36.4; O2SAT 92–96; BMI 31.1
--- NOTE | 2022-10-08 | ASPIGT_PTH ---
PATIENT: ISIDRO GRAMAJO LOC: [place] U#:[id number] AGE/SX: 77/F ROOM: RE10/08/[address]: Dr. Terry Nolan DO : 1945 BED: DIS: 10/08/2022 SPEC #: [id number] RECD: 10/08/22 10:10 STATUS: DEE ALEX #: [id number] CRISTINA: 10/08/22 00:[address]: Terry Nolan DEPT: SURGICAL PATHOLOGY RECD BY: Darby Morales ENTERED: 10/08/22 10:10 SP TYPE: ASP RAD OTHR DR: Dr. Lloyd Lewis MD Tissues: Lung, NOS Procedures: FNA Specimen Adequacy Special Stain Group II Surgery Specimen Level IV Imprint (control) HEADER OPERATION: Right lower lobe lung, CT-guided core biopsy PRE-OP DIAGNOSIS: Right lower lobe mass TISSUE SUBMITTED: Right lower lobe mass 20-gauge core x6 MICROSCOPIC DIAGNOSIS Right lower lobe mass, CT-guided core biopsy: Non-small cell carcinoma, favor squamous cell carcinoma. See comment. SJ:rg 10/09/2022 COMMENT The specimen is evaluated at the time of biopsy by Dr. Pizarro. Immediate Evaluation = Malignant cells present derived from non-small cell carcinoma. Immunohistochemistry ([id number]) supports the above diagnosis. Molecular studies on the tumor can be performed, if clinically indicated, please notify the laboratory if they are needed. Please make reference to previous specimens ([id number]), right adrenal mass, CT-guided core biopsy with diagnosis of ?benign adrenal tissue? and ([id number]) left breast, lumpectomy with needle localization with diagnosis of ?invasive ductal carcinoma.? Case has been reviewed in consultation with Dr. Lemos who concurs with the above diagnosis. IDC:AM MICROSCOPIC DESCRIPTION Slides are reviewed. GROSS DESCRIPTION Received in fixative is one container labeled with the patient's name and designated right lower lobe lung, CT-guided core biopsy. The specimen consists of multiple irregular fragments of cantrell soft tissue that in aggregate measure 0.8 x 0.1 x <0.1 cm. The specimen is totally submitted in one cassette. Four touch imprints are prepared at the time of core biopsy. / SJ:rg 10/08/2022 TC:0 [facility]: [id number], [id number] ADDENDUM ADDENDUM ADDENDUM ADDENDUM ADDENDUM ADDENDUM ADDENDUM ADDENDUM ADDENDUM ADDENDUM ADDENDUM ADDENDUM ADDENDUM ADDENDUM ADDENDUM ADDENDUM 12/13/2022 08:53 ADDENDUM 12/13/2022 08:53 ADDENDUM 12/13/2022 08:53 ADDENDUM 12/13/2022 08:53 ADDENDUM 12/13/2022 08:53 [facility] NGS REPORT FROM [facility] RESULT SUMMARY: Abnormal IMMUNOTHERAPY BIOMARKERS: Tumor Mutation Boling: Low (9.4 Mutations / MB) Microsatellite Instability: MSI Negative (1.63%) PERTINENT NEGATIVE RESULTS: The following genes are NEGATIVE for clinically relevant mutations. Mutational hotspots and surrounding exonic regions were interrogated for DNA level point mutations and indels (fusions not assayed). AKT1, ALK, ATR, BRAF, CHEK1, DDR2, ERBB2, ERBB3, FGFR1, KRAS, MAP2K1, MET, NRAS, NTRK1, PIK3CA, POLD1, POLE, ROS1, STK11, TERT Please see complete report in e-chart or EMR
--- NOTE | 2022-10-08 07:42 | CT_ITS ---
PROCEDURE: CT GUIDED CORE NEEDLE BIOPSY OF A right lower lobe necrotic LUNG LESION INDICATION: Female, 77 years old. LUNG MASS PHYSICIAN: Dr. ROLDAN Weldon CONSENT: Written informed consent was obtained having explained the risks, benefits and alternatives in detail with the patient who accepted the risks and agreed to proceed. Laboratory review and clinical assessment was performed. CONSCIOUS SEDATION PROTOCOL: The Drugs used were: 2 mg Versed, IV., and 50 mcg Fentanyl, IV. The sedation time was: 23 minutes. Conscious sedation was started at 9:20 AM and terminated at 9:43 AM. The conscious sedation protocol was independently monitored. RADIATION DOSAGE (If Supplied By Facility): CTDIvol = ( 16 ) mGy, DLP = ( 452.58 ) mGycm Individualized dose optimization techniques were used for this CT. TECHNIQUE: The patient was placed in the left down decubitus position. A noncontrast CT was performed to localize the lesion in the right lower lobe . The skin surface was prepped and draped in a sterile fashion. 1% lidocaine was used for local anesthesia. Using CT guidance, a 20 coaxial biopsy device was advanced to the periphery of the lesion. A total of 7 core specimens were obtained. The specimens were placed in a formalin solution. A post procedure CT demonstrated no adverse sequelae or pneumothorax. The patient tolerated the procedure well without adverse event. A negative biopsy does not exclude malignancy. Further imaging or clinical followup based on patient condition and degree of clinical suspicion for malignancy. Suggest rebiopsy, if biopsy results do not match with clinical scenario. CT/Biopsy/Inj or Needle Placement IMPRESSION: 1. CT directed core needle biopsy of the right lower lobe necrotic nodular density using CT image guidance with image documentation as described. Pathology results are pending. 2. Conscious Sedation protocol utilized with independent monitoring. Electronically Signed: Ike Martinez MD at 10:30 EST ,
[2022-10-08] MEDS: fentaNYL 100 MCG/2 ML Ampul IV (09:20)
[2022-10-08] MEDS: Midazolam 2 MG/2 ML Syringe IV (09:20)
--- NOTE | 2022-10-08 09:30 | IMM_PTH ---
PATIENT: ISIDRO GRAMAJO LOC: [place] U#:[id number] AGE/SX: 77/F ROOM: RE10/08/[address]: Dr. Terry Nolan DO : 1945 BED: DIS: 10/08/2022 SPEC #: [id number] RECD: 10/08/22 12:15 STATUS: DEE REQ #: [id number] CRISTINA: 10/08/22 09:[address]: Terry Nolan DEPT: IMMUNOHISTOCHEMISTRY RECD BY: Meena Peralta ENTERED: 10/08/22 12:18 SP TYPE: IMMUNO OTHR DR: Dr. Lloyd Lewis MD Tissues: Right lower lobe of lung, NOS Procedures: RCC (add) NAPSIN A (add) CK20 (add) CK5-6 (add) CK7 (add) CK8 (add) HEP PAR (add) AZ (add) TTF1 (add) Pankeratin (add) P40 (add) ER (initial) PHYSICIAN & [address] [address] SPECIMEN INFORMATION: Tissue Source: Right lower lobe lung mass Clinical Info: Right lower lobe lung mass Specimen Number: [id number] CPT code: 75230, 64856 x11 METHODOLOGY: Deparaffinized sections of prefer/formalin-fixed tissue or PAP/DQ stained slides are incubated with monoclonal/polyclonal antibodies/oligonucleotide probes. Localization is made via biotin free immunoperoxidase method. Appropriate controls are performed and reacted as expected. Results on target cell population are indicated in the following table: RESULTS: ANTIBODY / CLONE RESULT ER (6F11) negative AZ (1E2) negative AE1-3 (AE1/AE3/PCK26) positive CK7 (OV-TL12/30) positive CK8 (88wjyaH83) positive CK20 (KS20.8) negative TTF-1 (8G7G3/1) negative Napsin A (Rabbit Polyclonal) negative HepPar (OCh1E5) negative RCC (PN-15) negative CK5-6 (D5 & 1684) positive P40 (BC28) positive These tests were developed and their performance characteristics determined by [facility]. They may not have been cleared or approved by the U.S. Food and Drug Administration. The FDA has determined that such clearance or approval is not necessary. The above immunohistochemical/dualISH markers are ordered and reviewed by the Pathologist. INTERPRETATION: Right lower lobe lung mass, CT-guided core biopsy: Non-small cell carcinoma, favor squamous cell carcinoma. SJ:carter 10/10/2022
[2022-10-08] MEDS: Lidocaine 1% (20 ml mdv) 20 ML Vial INFILT (09:35)
--- NOTE | 2022-10-08 09:50 | RAD_ITS ---
STUDY: X-RAY CHEST REASON FOR EXAM: Female, 77 years old. Post lung biopsy -- Immediately post lung biopsy TECHNIQUE: AP inspiration and expiration views. COMPARISON: Comparison is made with prior study dated 08/20/2022. FINDINGS: The patient is status post biopsy of the right lower lobe nodule. Small right apical pneumothorax. The patient is asymptomatic. RAD/Chest Insp/Exp 2 View IMPRESSION: Small right apical pneumothorax on the immediate post right lung biopsy radiograph. The patient is asymptomatic at this time. Electronically Signed: Ike Martinez MD at 10:04 EST ,
--- NOTE | 2022-10-08 11:50 | RAD_ITS ---
STUDY: X-RAY CHEST REASON FOR EXAM: Female, 77 years old. 2 hrs post biopsy -- 2 hours post lung biopsy TECHNIQUE: AP inspiration and expiration views COMPARISON: Comparison is made with prior study done earlier today. FINDINGS: Stable small right apical pneumothorax on the 2 hour delayed images. The patient is asymptomatic. RAD/Chest Insp/Exp 2 View IMPRESSION: Stable small right apical pneumothorax on the two-hour delayed images. Electronically Signed: Ike Martinez MD at 12:15 EST ,
== END 2022-10-08 23:59 | disposition home or self-care (01) ==
PROVIDERS: PCP Internal Medicine; Referring Provider Internal Medicine Hematology & Oncology; Visit Provider Internal Medicine Hematology & Oncology
DX: C50.512 Malignant neoplasm of lower-outer quadrant of left female breast (principal); E27.8 Other specified disorders of adrenal gland; J93.9 Pneumothorax, unspecified; R91.8 Other nonspecific abnormal finding of lung field
CPT/HCPCS: 32408; 71046; 77012; 88172; 88305; 88313; 88341; 88342; 99156; J7050; A4216; C2613

== ENCOUNTER 2022-11-15 11:38 | Day surgery (SDC) | payer MEDICARE, BC, SELFPAY ==
--- NOTE | 2022-11-12 12:33 | PCM.HP.STD ---
HPI - General General Date of Service: 11/15/22 HPI Narrative The patient is a 77-year-old female who initially presented to the pulmonary medicine clinic on November 05 in referral for the evaluation of a lung mass. The patient was previously evaluated by Dr. Susannah Pineda at [facility] in August 2022.? The patient has a history significant for tobacco dependency of 50 pack years, having quit completely in 2019, along with a history of breast cancer ER/MI positive HER2 negative in 2018 status post lumpectomy and XRT.? In August 2022, the patient was evaluated in our emergency department with shortness of breath.? A CTA chest was obtained which demonstrated no evidence for pulmonary embolism, but did demonstrate an irregular 5.5 cm cavitary lesion in the right lower lobe.? The patient was referred and underwent a CT-guided lung biopsy in September 2022.? Pathology was positive for non-small cell carcinoma, favor squamous cell cancer.? PET scan completed on September 25, 2022 demonstrated increased uptake in the right lower lobe lung mass along with enhanced concentration in the bilateral thoracic perihilar regions.? [facility] Medical History Bowel perforation Breast cancer Crohn's disease Hypertension Home Medications amlodipine 10 mg tablet 10 mg PO DAILY 08/20/22 [History Last Taken Unknown] chlorthalidone 25 mg tablet 25 mg PO DAILY 08/20/22 [History Last Taken Unknown] letrozole 2.5 mg tablet 2.5 mg PO DAILY 08/20/22 [History Last Taken Unknown] metoprolol tartrate 100 mg tablet 50 mg PO BID 08/20/22 [History Last Taken Unknown] Allergy/AdvReac Type Severity Reaction Status Date / Time Crnlkbu-OBV-ZsL Reductase Allergy Swelling Verified 11/05/22 07:05 Inhibitor Surgical History Hx of lumpectomy Social History Smoking Status: Former smoker substance use type: does not use ROS ROS Narrative 10 systems reviewed with pertinent positives as noted in the HPI above. Physical Exam Const alert and no apparent distress General Appearance: cooperative HEENT normocephalic and head/scalp atraumatic Eyes PERRL and EOMs intact bilaterally Neck supple General: trachea midline Resp normal respiratory effort Auscultation: diminished lung sounds; Negative for rales, rhonchi or wheezes Cardio regular rate and regular rhythm GI normal to inspection, nondistended, normoactive bowel sounds Extremity no clubbing, cyanosis or edema Skin General Skin Exam: no breakdown Neuro no focal motor deficits Psych cooperative and affect normal Assessment & Plan Assessment/Plan (1) NSCLC of right lung: PLAN: The patient was recently diagnosed with non-small cell carcinoma of the right lung and underwent pet imaging which demonstrated increased FDG uptake in the bilateral perihilar regions.? The patient is currently established with Dr. Nolan of oncology.? This case was discussed personally with him.? Following a discussion regarding risks and benefits, the patient is in agreement to proceed with an EBUS to facilitate mediastinal/hilar lymph node sampling.?
[2022-11-13 13:37] LABS: Platelet Count 233 K/mm3 (150-450)
[2022-11-13 13:57] LABS: Prothrombin Time (Protime)PT. 12.6 SECONDS (11.7-14.9)
[2022-11-15] VITALS (9 sets, daily range): BP systolic 109–151; BP diastolic 52–92; PULSE 62–70; RESP 16–18; TEMP 36.4–37.2; O2SAT 92–100; BMI 31.0
--- NOTE | 2022-11-15 | IMM_PTH ---
PATIENT: ISIDRO GRAMAJO LOC: EN U#:[id number] AGE/SX: 77/F ROOM: RE11/15/[address]: Dr. Charles Pineda DO : 1945 BED: DIS: 11/15/2022 SPEC #: [id number] RECD: 11/18/22 12:14 STATUS: DEE REQ #: [id number] CRISTINA: 11/15/22 00:[address]: Charles Pineda DEPT: IMMUNOHISTOCHEMISTRY RECD BY: Meena Peralta ENTERED: 11/18/22 12:16 SP TYPE: IMMUNO OTHR DR: Dr. Lloyd Lewis MD Tissues: G - Lung, NOS H - Lung, NOS Procedures: NAPSIN A (add) CK20 (add) CK5-6 (add) CK7 (add) KI-67 (add) MACRO (add) P53 (add) TTF1 (add) Vimentin (add) 34BE12 (add) Pankeratin (initial) P40 (add) PHYSICIAN & [address] [address] SPECIMEN INFORMATION: Tissue Source: G ? EBUS, TBNA, site 10L, H - EBUS, TBNA, site 10R Clinical Info: NSCLC of right lung Specimen Number: [id number] G & H CPT code: 81260 x2, 14753 x22 METHODOLOGY: Deparaffinized sections of prefer/formalin-fixed tissue or PAP/DQ stained slides are incubated with monoclonal/polyclonal antibodies/oligonucleotide probes. Localization is made via biotin free immunoperoxidase method. Appropriate controls are performed and reacted as expected. Results on target cell population are indicated in the following table: RESULTS: ANTIBODY / CLONE RESULT Block G AE1-3 (AE1/AE3/PCK26) negative CK7 (OV-TL12/30) negative CK20 (KS20.8) negative Vimentin (V9) positive, lymphocytes 34BE12 (34BE12) negative Macro (HAM-56) negative TTF-1 (8G7G3/1) negative Napsin A (Rabbit Polyclonal) negative CK5-6 (D5 & 1684) negative P40 (BC28) negative P53 (DO-7) negative Ki-67 (30-9) negative Block H AE1-3 (AE1/AE3/PCK26) negative CK7 (OV-TL12/30) negative CK20 (KS20.8) negative Vimentin (V9) positive, lymphocytes 34BE12 (34BE12) negative Macro (HAM-56) negative TTF-1 (8G7G3/1) negative Napsin A (Rabbit Polyclonal) negative CK5-6 (D5 & 1684) negative P40 (BC28) negative P53 (DO-7) negative Ki-67 (30-9) negative These tests were developed and their performance characteristics determined by [facility]. They may not have been cleared or approved by the U.S. Food and Drug Administration. The FDA has determined that such clearance or approval is not necessary. The above immunohistochemical/dualISH markers are ordered and reviewed by the Pathologist. INTERPRETATION: G. EBUS, TBNA, site 10L: No evidence of malignancy. H. EBUS, TBNA, site 10R: No evidence of malignancy. AM:carter 11/19/2022
--- NOTE | 2022-11-15 | ASPIG_PTH ---
PATIENT: ISIDRO GRAMAJO LOC: EN U#:[id number] AGE/SX: 77/F ROOM: RE11/15/[address]: Dr. Charles Pineda DO : 1945 BED: DIS: 11/15/2022 SPEC #: [id number] RECD: 11/15/22 14:06 STATUS: DEE ALEX #: [id number] CRISTINA: 11/15/22 00:[address]: Charles Pineda DEPT: CYTOLOGY RECD BY: Patel Lara ENTERED: 11/15/22 14:09 SP TYPE: ASP OUT OTHR DR: Dr. Lloyd Lewis MD Tissues: A - Lung, NOS B - Lung, NOS C - Lung, NOS D - Lung, NOS E - Lung, NOS F - Lung, NOS G - Lung, NOS H - Lung, NOS Procedures: FNA Specimen Adequacy Special Stain Group II Surgery Specimen Level IV Cytology Other HEADER OPERATION: Endobronchial ultrasound PRE-OP DIAGNOSIS: NSCLC of right lung TISSUE SUBMITTED: A - EBUS, TBNA, site 10L #1, B - EBUS, TBNA, site 10L #2, C - EBUS, TBNA, site 10L #3, D - EBUS, TBNA, site 10R #4, E - EBUS, TBNA, site 10R #5, F - EBUS, TBNA, site 10R #6, G - EBUS, TBNA, site 10L, H - EBUS, TBNA, site 10R DIAGNOSIS CYTOLOGY A. EBUS, TBNA, site 10L #1: Blood and rare lymphocytes. B. EBUS, TBNA, site 10L #2: Blood. Some lymphocytes present. C. EBUS, TBNA, site 10L #3: Blood. Rare lymphocytes present. D. EBUS, TBNA, site 10R #4: Benign bronchial epithelial cells. Lymphocytes present. E. EBUS, TBNA, site 10R #5: Abundant lymphocytes present. No evidence of malignancy. F. EBUS, TBNA, site 10R #6: Blood and rare lymphocytes. G. EBUS, TBNA, site 10L (cell block): Positive for malignant cells, non-small cell carcinoma, adenocarcinoma of lung origin. See comment. H. EBUS, TBNA, site 10R (cell block): Positive for malignant cells, non-small cell carcinoma, adenocarcinoma of lung origin. See comment. AM:carter 11/19/2022 COMMENT The specimen is evaluated at the time of procedure by Dr. Lemos. Rapid Onsite Evaluation: A. EBUS, TBNA, site 10L #1: Blood and rare lymphocytes. B. EBUS, TBNA, site 10L #2: Blood. Some lymphocytes present. C. EBUS, TBNA, site 10L #3: Blood. Rare lymphocytes present. D. EBUS, TBNA, site 10R #4: Benign bronchial epithelial cells. Lymphocytes present. E. EBUS, TBNA, site 10R #5: Abundant lymphocytes present. No evidence of malignancy. F. EBUS, TBNA, site 10R #6: Blood and rare lymphocytes. G & H. Immunohistochemistry ([id number]) supports the above diagnosis. Case has been reviewed in consultation with Dr. Pizarro who concurs with the above diagnosis. IDC:SJ CYTOLOGY STUDY Slides are reviewed. CYTOLOGY GROSS A - Received labeled with the patient's name and and designated EBUS, TBNA, site 10L #1. The specimen consists of two stained smears for PALMER (Rapid OnSite Evaluation). B - Received labeled with the patient's name and and designated EBUS, TBNA, site 10L #2. The specimen consists of two stained smears for PALMER. C - Received labeled with the patient's name and and designated EBUS, TBNA, site 10L #3. The specimen consists of two stained smears for PALMER. D - Received labeled with the patient's name and and designated EBUS, TBNA, site 10R #4. The specimen consists of two stained smears for PALMER. E - Received labeled with the patient's name and and designated EBUS, TBNA, site 10R #5. The specimen consists of two stained smears for PALMER. F - Received labeled with the patient's name and and designated EBUS, TBNA, site 10R #6. The specimen consists of two stained smears for PALMER. G - Received in RPMI is 20 ml of pink, needle rinsed fluid labeled with the patient's name and and designated EBUS, TBNA, site 10L. The specimen is submitted for cell block preparation. H - Received in RPMI is 20 ml of pink, needle rinsed fluid labeled with the patient's name and and designated EBUS, TBNA, site 10R. The specimen is submitted for cell block preparation. / AM:carter 11/15/2022 TC:0 CPT: 74936 x2, 38275 x4, 73045 x2
--- NOTE | 2022-11-15 | ASPIG_PTH ---
PATIENT: ISIDRO GRAMAJO LOC: EN U#:[id number] AGE/SX: 77/F ROOM: RE11/15/[address]: Dr. Charles Pineda DO : 1945 BED: DIS: 11/15/2022 SPEC #: [id number] RECD: 11/15/22 14:06 STATUS: DEE ALEX #: [id number] CRISTINA: 11/15/22 00:[address]: Charles Pineda DEPT: CYTOLOGY RECD BY: Patel Lara ENTERED: 11/15/22 14:09 SP TYPE: ASP OUT OTHR DR: Dr. Lloyd Lewis MD Tissues: A - Lung, NOS B - Lung, NOS C - Lung, NOS D - Lung, NOS E - Lung, NOS F - Lung, NOS G - Lung, NOS H - Lung, NOS Procedures: FNA Specimen Adequacy Special Stain Group II Surgery Specimen Level IV Cytology Other HEADER OPERATION: Endobronchial ultrasound PRE-OP DIAGNOSIS: NSCLC of right lung TISSUE SUBMITTED: A - EBUS, TBNA, site 10L #1, B - EBUS, TBNA, site 10L #2, C - EBUS, TBNA, site 10L #3, D - EBUS, TBNA, site 10R #4, E - EBUS, TBNA, site 10R #5, F - EBUS, TBNA, site 10R #6, G - EBUS, TBNA, site 10L, H - EBUS, TBNA, site 10R DIAGNOSIS CYTOLOGY A. EBUS, TBNA, site 10L #1: Blood and rare lymphocytes. B. EBUS, TBNA, site 10L #2: Blood. Some lymphocytes present. C. EBUS, TBNA, site 10L #3: Blood. Rare lymphocytes present. D. EBUS, TBNA, site 10R #4: Benign bronchial epithelial cells. Lymphocytes present. E. EBUS, TBNA, site 10R #5: Abundant lymphocytes present. No evidence of malignancy. F. EBUS, TBNA, site 10R #6: Blood and rare lymphocytes. G. EBUS, TBNA, site 10L (cell block): Negative for malignant cells. See comment. H. EBUS, TBNA, site 10R (cell block): Negative for malignant cells. See comment. AM:carter 11/19/2022 COMMENT The specimen is evaluated at the time of procedure by Dr. Lemos. Rapid Onsite Evaluation: A. EBUS, TBNA, site 10L #1: Blood and rare lymphocytes. B. EBUS, TBNA, site 10L #2: Blood. Some lymphocytes present. C. EBUS, TBNA, site 10L #3: Blood. Rare lymphocytes present. D. EBUS, TBNA, site 10R #4: Benign bronchial epithelial cells. Lymphocytes present. E. EBUS, TBNA, site 10R #5: Abundant lymphocytes present. No evidence of malignancy. F. EBUS, TBNA, site 10R #6: Blood and rare lymphocytes. G & H. Immunohistochemistry ([id number]) supports the above diagnosis. Case discussed with Dr. Charles Pineda on 11/19/2022. Case has been reviewed in consultation with Dr. Pizarro who concurs with the above diagnosis. IDC:SJ CYTOLOGY STUDY Slides are reviewed. CYTOLOGY GROSS A - Received labeled with the patient's name and and designated EBUS, TBNA, site 10L #1. The specimen consists of two stained smears for PALMER (Rapid OnSite Evaluation). B - Received labeled with the patient's name and and designated EBUS, TBNA, site 10L #2. The specimen consists of two stained smears for PALMER. C - Received labeled with the patient's name and and designated EBUS, TBNA, site 10L #3. The specimen consists of two stained smears for PALMER. D - Received labeled with the patient's name and and designated EBUS, TBNA, site 10R #4. The specimen consists of two stained smears for PALMER. E - Received labeled with the patient's name and and designated EBUS, TBNA, site 10R #5. The specimen consists of two stained smears for PALMER. F - Received labeled with the patient's name and and designated EBUS, TBNA, site 10R #6. The specimen consists of two stained smears for PALMER. G - Received in RPMI is 20 ml of pink, needle rinsed fluid labeled with the patient's name and and designated EBUS, TBNA, site 10L. The specimen is submitted for cell block preparation. H - Received in RPMI is 20 ml of pink, needle rinsed fluid labeled with the patient's name and and designated EBUS, TBNA, site 10R. The specimen is submitted for cell block preparation. / AM:carter 11/15/2022 TC:1 CPT: 60933 x2, 52027 x4, 34082 x2
[2022-11-15] MEDS: Lactated Ringers 1,000 ML 15 ML IV (12:00)
--- NOTE | 2022-11-15 14:00 | OP.BRONCH_ITS ---
Patient Name: Tatiana Edmondson Procedure Date: 11/15/2022 12:44 PM Date of : 1945 Age: 77 Procedure: Bronchoscopy Indications: Mediastinal adenopathy Providers: Charles Pineda MD Referring MD: Charles Pineda MD Medicines: See the Anesthesia note for documentation of the administered medications Complications: No immediate complications Procedure: Pre-Anesthesia Assessment: - A History and Physical has been performed. Patient meds and allergies have been reviewed. The risks and benefits of the procedure and the sedation options and risks were discussed with the patient. All questions were answered and informed consent was obtained. Patient identification and proposed procedure were verified prior to the procedure by the physician and the nurse in the procedure room. Mental Status Examination: alert and oriented. Airway Examination: normal oropharyngeal airway. Respiratory Examination: clear to auscultation. CV Examination: normal. ASA Grade Assessment: III - A patient with severe systemic disease. After reviewing the risks and benefits, the patient was deemed in satisfactory condition to undergo the procedure. The anesthesia plan was to use general anesthesia. Immediately prior to administration of medications, the patient was re-assessed for adequacy to receive sedatives. The heart rate, respiratory rate, oxygen saturations, blood pressure, adequacy of pulmonary ventilation, and response to care were monitored throughout the procedure. The physical status of the patient was re-assessed after the procedure. After I obtained informed consent, the scope was passed under direct vision. Throughout the procedure, the patient's blood pressure, pulse, and oxygen saturations were monitored continuously. The ultrasound bronchoscope was introduced through the mouth, via laryngeal mask airway and advanced to the tracheobronchial tree. The procedure was accomplished without difficulty. The patient tolerated the procedure well. Findings: The laryngeal mask airway is in good position. The vocal cords appear normal. The subglottic space is normal. The trachea is of normal caliber. The kong is sharp. The tracheobronchial tree was examined to at least the first subsegmental level. Bronchial mucosa and anatomy are normal; there are no endobronchial lesions, and no secretions. The scope was withdrawn and replaced with the EBUS bronchoscope to accomplish the ultrasound examination. Lymph Nodes: An endobronchial ultrasound endoscope was utilized to systematically examine the right hilar region (level 10R) and left hilar region (level 10L) in order to assist with guiding the biopsy needle. Endobronchial ultrasound was utilized for known non-small cell lung cancer. Sampling by transbronchial needle aspiration was also performed using an Olympus EBUS-TBNA 19 gauge needle in the right hilar region (level 10R) and left hilar region (level 10L) and sent for routine cytology. - The 10L (hilar) node was evaluated. Three samples with the needle were obtained. - The 10R (hilar) node was evaluated. Three samples with the needle were obtained. Impression: - Mediastinal adenopathy - The airway examination was normal. - Endobronchial ultrasound was performed. - Lymph node sampling was performed. Recommendation: - Await biopsy results. Procedure Code(s): --- Professional --- 52196, Bronchoscopy, rigid or flexible, including fluoroscopic guidance, when performed; with endobronchial ultrasound (EBUS) guided transtracheal and/or transbronchial sampling (eg, aspiration[s]/biopsy[ies]), one or two mediastinal and/or hilar lymph node stations or structures Diagnosis Code(s): --- Professional --- R59.0, Localized enlarged lymph nodes R09.89, Other specified symptoms and signs involving the circulatory and respiratory systems CPT copyright 2017 [employer] [place] [employer]. All rights reserved. The codes documented in this report are preliminary and upon e learning manager review may be revised to meet current compliance requirements. DO Charles Betancourt MD 11/15/2022 1:59:57 PM This report has been signed electronically. Number of Addenda: 0 Note Initiated On: 11/15/2022 12:44 PM
[2022-11-15] MEDS: Ipratropium/Albuterol Sulfate 3 ML AMPUL.NEB INHALATION (15:03)
== END 2022-11-15 15:56 | disposition home or self-care (01) ==
LOC: EN 11:38 → AC 11:39
PROVIDERS: PCP Internal Medicine; Referring Provider Internal Medicine Critical Care Medicine; Visit Provider Internal Medicine Critical Care Medicine
PROC: BB4BZZZ Ultrasonography of Pleura (ICD-10-PCS; CPT 31652; principal; 2022-11-15 12:30)
DX: C34.91 Malignant neoplasm of unspecified part of right bronchus or lung (principal); I10 Essential (primary) hypertension; Z87.891 Personal history of nicotine dependence; Z85.3 Personal history of malignant neoplasm of breast; Z79.899 Other long term (current) drug therapy
CPT/HCPCS: 31652; 36415; 85049; 85610; 88161; 88172; 88305; 88313; 88341; 88342; J7120; J2405

== ENCOUNTER 2023-03-13 04:08 | Emergency (ER) | payer MEDICARE, BC, SELFPAY ==
[2023-03-13 04:09] VITALS: BP 154/111; PULSE 99; RESP 18; TEMP 36; O2SAT 98; BMI 30.8
--- NOTE | 2023-03-13 04:26 | EKG12_ITS ---
Test Reason : DYSRHYTHMIA Blood Pressure : / mmHG Vent. Rate : 081 BPM Atrial Rate : 081 BPM P-R Int : 180 ms QRS Dur : 086 ms QT Int : 404 ms P-R-T Axes : 066 033 036 degrees QTc Int : 469 ms Sinus rhythm with Premature atrial complexes Nonspecific ST abnormality Abnormal ECG Confirmed by SINGH RICO, MAHAD ([id number]), editorial director INDU FUENTES ([id number]) on 03/14/2023 1:23:09 PM Referred By: ERIN Confirmed By:MAHAD WINTERS MD
--- NOTE | 2023-03-13 04:27 | EX.ED.DYSGE1 ---
HPI History of Present Illness Chief Complaint: General Illness Informant: patient and spouse/S.O. Narrative Narrative: Presents for eval of generalized illness. States having shakes for 2 days, this evening had chills. Cough with phlegm that is chronic. Remote tobacco history. Headache, no fevers. No urinary symptoms. Nausea without vomiting. Had 3 loose stools this evening. Denies recent antibiotics. Patient on immunotherapy for diagnosis of non-small cell lung cancer diagnosis past August her last treatment was 3 weeks ago. She is followed by Dr. Nolan. Denies chest or abdominal pain. [facility] Medical History Arthritis Back pain Bowel perforation Breast cancer Cancer Crohn's disease Former smoker History of edema History of pain when walking History of steroid therapy History of stress test Hypertension Restless legs Shortness of breath on exertion Wears dentures Wears glasses Home Medications amlodipine 10 mg tablet 10 mg PO DAILY 08/20/22 [History Last Taken Unknown] chlorthalidone 25 mg tablet 25 mg PO DAILY 08/20/22 [History Last Taken Unknown] letrozole 2.5 mg tablet 2.5 mg PO DAILY 08/20/22 [History Last Taken Unknown] metoprolol tartrate 100 mg tablet 50 mg PO BID 08/20/22 [History Last Taken Unknown] loperamide 2 mg capsule 2 mg PO Q4H PRN Diarrhea 11/13/22 [History Last Taken Unknown] multivitamin 1 tab PO DAILY 11/13/22 [History Last Taken Unknown] ondansetron 4 mg disintegrating tablet 4 mg PO Q8H PRN PRN Nausea #10 tabs 03/13/23 [Rx Last Taken Unknown] Allergy/AdvReac Type Severity Reaction Status Date / Time Obllmbe-YKE-MsV Reductase Allergy Swelling Verified 03/13/23 04:11 Inhibitor Surgical History History of bowel resection History of bunionectomy of left great toe History of bunionectomy of right great toe Hx of colonoscopy Hx of lumpectomy Hx of umbilical hernia repair Social History Smoking Status: Former smoker substance use type: does not use ROS ROS ED Constitutional Constitutional ED: Reports chills; Denies fever(s) or sweats Eyes Eyes: Denies change in vision ENT ENT ED: Denies dysphagia or sore throat Cardiovascular Cardiovascular: Denies chest pain, leg edema, palpitations or racing heartbeat Respiratory/Chest Respiratory/Chest: Reports cough; Denies dyspnea or dyspnea on exertion Gastrointestinal Gastrointestinal: Reports nausea; Denies abdominal pain, diarrhea or vomiting Genitourinary Genitourinary ED: Denies dysuria, hematuria or urinary frequency Musculoskeletal Musculoskeletal: Denies back pain, extremity pain or neck pain Integumentary Denies rash or wounds Neurologic Neurologic: Reports headache(s); Denies paresthesias or weakness EXAM Physical Exam Const Vital Signs: 03/13/23 04:09 03/13/23 05:20 03/13/23 05:20 Temperature 96.8 F L Temperature Source Temporal Pulse Rate 99 81 Respiratory Rate 18 19 H Respiratory Effort Non-Labored Blood Pressure 154/111 H 131/62 H Blood Pressure Mean 125 85 Pulse Ox 98 94 Oxygen Delivery Method Room Air 03/13/23 07:14 Temperature Temperature Source Pulse Rate 81 Respiratory Rate 16 Respiratory Effort Blood Pressure 131/62 H Blood Pressure Mean Pulse Ox 94 Oxygen Delivery Method Positive well nourished and well developed General Appearance ED: well developed and NAD HEENT HEENT Narrative: Mild dry mucosal membranes normocephalic and atraumatic Eyes PERRL, EOMs intact bilaterally and conjunctivae normal General Eye ED: Yes normal appearance of both eyes Neck no lymphadenopathy and supple General: Negative for tenderness Chest Wall Chest: Negative for tenderness Resp normal respiratory effort and normal air movement Effort and Inspection: symmetric chest movement; Negative for respiratory distress Cardio regular rate, regular rhythm and no murmurs Peripheral Pulses: pulses 2+ throughout GI normal to inspection, nondistended, normoactive bowel sounds and non-tender Palpation: Negative for guarding or rebound tenderness present Back/Spine no CVA tenderness and no thoracic nor lumbar tenderness Extremity normal to inspection General Extremety ED: Negative for edema or tenderness General Extremity: Negative for edema Neuro oriented x3 and no sensory deficits noted Sensorium / Orientation: awake and alert Skin no rashes or lesions noted and no wounds MDM MDM MDM Narrative Medical decision making narrative: Interventions / MDM: Differential diagnosis: Viral syndrome, pneumonia Diagnosis considered but do not suspect: N/A My EKG interpretation: Sinus rate of 81, no ST or T wave changes PAC noted. Imaging independently reviewed and interpreted by myself: 2 view chest x-ray: COPD lungs, no acute process. External documents reviewed: N/A Test considered but not ordered:N/A ED course: Re-evaluation: 629: Nausea improved. Potassium was 2.7 EKG changes. Magnesium added returned at 1.6. She states she is chronically low she is on potassium replacement at home. Takes 2 tabs daily. Will p.o. challenge and ambulate for disposition plans. Patient able to tolerate p.o. intake with no difficulties. She ambulated to the restroom with no difficulties. States she has an appointment with her oncologist Dr. Nolan at 8 AM. He manages her potassium and has her on it once in the morning once at night. Unclear on the dosing. Discussed with her appointment for discussion of this potassium and likely will need increased her dosing due to hypokalemia. She is discharged to follow-up with her doctors. Prescription Zofran sent to her pharmacy. Disposition discussed with patient/family/significant other: Patient and significant other Case discussed with consulting clinician: N/A Lab Data Attestation: I reviewed the patient's lab results. Labs: Laboratory Results - last 24 hr 03/13/23 03/13/23 03/13/23 04:40 04:40 04:40 WBC 5.5 RBC 3.28 L Hgb 10.5 L Hct 30.4 L MCV 92.7 MCH 32.0 MCHC 34.5 RDW Std Deviation 50.3 H RDW Coeff of Carmen 16.0 H Plt Count 160 MPV 10.0 Immature Gran % (Auto) 0.700 Neut % (Auto) 65.1 Lymph % (Auto) 22.7 Harrison % (Auto) 11.1 H Eos % (Auto) 0.2 Baso % (Auto) 0.2 Absolute Neuts (auto) 3.6 Absolute Lymphs (auto) 1.25 Nucleated RBC % 0 Sodium 139 Potassium 2.7 L* Chloride 104 Carbon Dioxide 27.0 Anion Gap 8 BUN 27 H Creatinine 1.03 H Estim Creat Clear Calc 36.75 Est GFR (MDRD) Af Amer 67 Est GFR (MDRD) Non-Af 55 L BUN/Creatinine Ratio 26.2 H Glucose 133 H Calcium 9.1 Magnesium 1.6 Radiography Diagnostic Testing: Clinical Impression(s) from Imaging Studies Chest X-Ray 03/13/23 04:52 IMPRESSION: COPD and atherosclerotic disease Electronically Signed: Bobby Mckay MD at 5:09 EDT , Discharge Plan Triage Chief Complaint: General Illness ED Provider: Leopoldo Barcenas Dx/Rx/DC Orders Clinical Impression: Acute hypokalemia, NSCLC of right lung, Nausea, Cough Instructions: ED Hypokalemia Prescriptions: New ondansetron [ondansetron] 4 mg tablet,disintegrating 4 mg PO Q8H PRN PRN (Reason: Nausea) Qty: 10 0RF No Action metoprolol tartrate 100 mg tablet 50 mg PO BID Label Comments: TAKE 1/2 TABLET BY MOUTH TWICE DAILY chlorthalidone 25 mg tablet 25 mg PO DAILY Label Comments: TAKE 1 TABLET BY MOUTH EVERY DAY amlodipine 10 mg tablet 10 mg PO DAILY Label Comments: TAKE 1 TABLET BY MOUTH EVERY DAY letrozole 2.5 mg tablet 2.5 mg PO DAILY Label Comments: TAKE 1 TABLET BY MOUTH EVERY DAY multivitamin [Multiple Vitamin] Tablet 1 tab PO DAILY loperamide [Imodium] 2 mg Capsule 2 mg PO Q4H PRN (Reason: Diarrhea) Rx Instructions: administer after each loose stool until symptoms controlled; do not exceed 8 mg per 24 hrs Primary Care Provider: Lloyd Lewis Referrals: Terry Nolan DO [Med Staff - Active Staff] - Keep Juan appointment Lloyd Lewis MD [Primary Care Provider] - 3-5 Days Activity Restrictions/Additional Instructions: Potassium 2.7 magnesium 1.6. Normal EKG. Status post 40 mEq of potassium replacement. Chest x-ray negative. COVID negative. Discussed with Dr. Nolan for your visit day for likely increase of your potassium replacement twice a day for the next 5 days. Disposition Disposition: Home, Self Care Discharge Date/Time: 03/13/23 07:16
--- NOTE | 2023-03-13 04:52 | RAD_ITS ---
INDICATION: CHEST PAIN EXAMINATION/TECHNIQUE: X-RAY - XR Chest 2 Views COMPARISON: Chest x-ray from 10/08/2022 FINDINGS: LINES/DEVICES: None. LUNGS: Hyperexpanded lungs again noted. Small residual scarlike opacity lateral right mid to lower lung. No pulmonary edema or focal airspace consolidation. No sizable pleural effusion. No pneumothorax detected. MEDIASTINUM AND CARDIOVASCULAR STRUCTURES: Heart size within normal limits. Atherosclerotic calcifications along aorta. BONES AND SOFT TISSUES: No acute findings. Abdominal hernia repair clips noted. RAD/Chest PA and Lateral IMPRESSION: COPD and atherosclerotic disease Electronically Signed: Bobby Mckay MD at 5:09 EDT ,
--- NOTE | 2023-03-13 05:19 | ED.RN ---
liter bolus of normal saline started at this time & zofran 4 mg iv given per order.
[2023-03-13 05:20] VITALS: BP 131/62; PULSE 81; RESP 19; O2SAT 94
[2023-03-13 05:21] LABS: Absolute Lymphocyte Count 1.25 X10^3/uL (0.83-4.51); Absolute Neutrophil Count 3.6 X10^3/uL (2.0-7.7); Basophil# 0.01 X10^3/uL; Basophil% 0.2 % (0-1); Eosinophil# 0.01 X10^3/uL; Eosinophils% 0.2 % (0-5); Hematocrit 30.4 % (37-47); Hemoglobin 10.5 g/dL (12.0-15.0); Lymphocyte # 1.25 X10^3/ul (0.83-4.51); Lymphocyte % 22.7 % (19-41); Mean Corp Hgb Conc 34.5 g/dL (32-36); Mean Corpuscular Volume 92.7 fL (81-99); Monocyte# 0.61 X10^3/uL; Monocyte% 11.1 % (0-10); NRBC Flagged by Analyzer 0 % (0-5); Neutrophil # 3.58 X10^3/uL (2.7-7.7); Neutrophil % 65.1 % (47-70); Platelet Count 160 K/mm3 (150-450); RBC Distribution Width SD 50.3 fl (35.1-43.9); Red Blood Count 3.28 M/mm3 (4.2-5.4); White Blood Count 5.5 K/mm3 (4.4-11.0)
[2023-03-13] MEDS: Ondansetron 4 MG/2 ML Vial IV (05:30)
[2023-03-13] MEDS: 0.9% Normal Saline 1,000 ML 1000 ML IV (05:30)
[2023-03-13 05:36] LABS: Anion Gap 8 (5-15); BUN 27 mg/dL (7-18); BUN/Creat Ratio 26.2 RATIO (10-20); Calcium,Total 9.1 mg/dL (8.5-10.1); Chloride 104 mmol/L (98-107); Creatinine, Serum 1.03 mg/dL (0.55-1.02); EST Glomerular Filtration Rate 55 mL/min (>60); Est Glom Filt Rate - Afr Amer 67 mL/min (>60); Estimated Creatinine Clearance 36.75 ml/min; Glucose 133 mg/dL (74-106); Potassium 2.7 mmol/L (3.5-5.1); Sodium Level 139 mmol/L (136-145)
[2023-03-13] MEDS: Potassium Chloride Oral Tablet 20 MEQ 40 MEQ PO (06:04)
[2023-03-13 06:18] LABS: Magnesium 1.6 mg/dL (1.6-2.6)
[2023-03-13 07:14] VITALS: BP 131/62; PULSE 81; RESP 16; O2SAT 94
== END 2023-03-13 07:16 | disposition home or self-care (01) ==
PROVIDERS: Emergency Provider Emergency Medicine; PCP Internal Medicine; Visit Provider Emergency Medicine
DX: E87.6 Hypokalemia (principal); C34.91 Malignant neoplasm of unspecified part of right bronchus or lung; J44.9 Chronic obstructive pulmonary disease, unspecified; R11.0 Nausea; Z87.891 Personal history of nicotine dependence; I10 Essential (primary) hypertension; R51.9 Headache, unspecified; I70.90 Unspecified atherosclerosis
CPT/HCPCS: 71046; 80048; 83735; 85025; 87428; 93005; 96361; 96374; 99284; J7030; A4216; J2405

== ENCOUNTER 2024-05-10 06:45 | Observation (INO) | payer MEDICARE, BC, SELFPAY ==
--- NOTE | 2024-04-13 08:35 | EKG12_ITS ---
Test Reason : PRE OP Blood Pressure : / mmHG Vent. Rate : 060 BPM Atrial Rate : 060 BPM P-R Int : 192 ms QRS Dur : 076 ms QT Int : 436 ms P-R-T Axes : 054 061 025 degrees QTc Int : 436 ms Sinus rhythm with Premature supraventricular complexes Nonspecific ST abnormality Borderline Confirmed by Russell Wharton ([id number]), video editor INDU FUENTES ([id number]) on 04/14/2024 9:28:03 AM Referred By: Margarito Price Confirmed By:Russell Wharton
[2024-04-13 09:33] LABS: Magnesium 2.1 mg/dL (1.6-2.6)
[2024-04-13 09:39] LABS: Albumin, Serum 3.4 g/dL (3.2-5.0); Anion Gap 2 (5-15); BUN 20 mg/dL (7-18); BUN/Creat Ratio 16.5 RATIO (10-20); Calcium,Total 9.8 mg/dL (8.5-10.1); Chloride 108 mmol/L (98-107); Creatinine, Serum 1.21 mg/dL (0.55-1.02); EST Glomerular Filtration Rate 46 mL/min (>60); Est Glom Filt Rate - Afr Amer 55 mL/min (>60); Glucose 123 mg/dL (74-106); Potassium 4.3 mmol/L (3.5-5.1); Sodium Level 140 mmol/L (136-145)
[2024-04-13 10:02] LABS: Absolute Lymphocyte Count 1.92 X10^3/uL (0.83-4.51); Absolute Neutrophil Count 4.8 X10^3/uL (2.0-7.7); Basophil# 0.04 X10^3/uL; Basophil% 0.5 % (0-1); Eosinophils% 1.3 % (0-5); Hematocrit 42.6 % (37-47); Hemoglobin 13.8 g/dL (12.0-15.0); Lymphocyte # 1.92 X10^3/ul (0.83-4.51); Lymphocyte % 25.2 % (19-41); Mean Corp Hgb Conc 32.4 g/dL (32-36); Mean Corpuscular Hgb 29.3 pg (27.0-32.0); Mean Corpuscular Volume 90.4 fL (81-99); Mean Platelet Vol. 11.3 fl (6.2-12.0); Monocyte# 0.72 X10^3/uL; Monocyte% 9.5 % (0-10); NRBC Flagged by Analyzer 0 % (0-5); Neutrophil % 63.1 % (47-70); Platelet Count 222 K/mm3 (150-450); RBC Distribution Width CV 15.6 % (11.6-14.6); RBC Distribution Width SD 51.3 fl (35.1-43.9); Red Blood Count 4.71 M/mm3 (4.2-5.4); White Blood Count 7.6 K/mm3 (4.4-11.0)
--- NOTE | 2024-04-28 21:52 | HP.PCM_ITS ---
History and Physical History and Physical Patient Name: Tatiana Edmondson : 1945 From: XENIA MITCHELL PA-C DATE OF PRE-OPERATIVE EXAM: 04/28/2024 DATE OF SURGERY: 05/10/2024 SCHEDULED PROCEDURE: Direct anterior right total hip arthroplasty HISTORY OF PRESENT ILLNESS: Preoperative history and physical exam was performed on April 28, 2024. This is a 79-year-old female who is had ongoing pain for several years. Patient's pain has been constant, dull, and sore. Pain is increased with going up and down stairs and walking. Her pain can reach 8/10. She does get start up pain with the right hip. Pain is located laterally. Pain does occasionally awaken her at night. Patient has difficulty with activities of daily living including housework and shopping. Patient has tripped/stumbled secondary to the pain. Patient has been using a cane and does report having increased limping due to the pain. Patient states she is no longer going to the grocery store due to decreased mobility. She has difficulty putting on her socks and shoes. Patient has attempted rest, ice, heat without relief. She has tried previous intra- articular hip injections with Dr. Salas which only provided a few days of relief. She has been through physical therapy and home exercises. She denies past history of surgery on her right hip. Patient has obtain surgical clearance from the primary care provider Dr. Lewis. Patient does have medical history pertinent for previous breast cancer, hypertension, hypercholesterolemia, chronic kidney disease stage III, dementia, previous DVT in 2022 after lung surgery. Patient did have right lower lobe lobectomy in 2022. She has had recent chest x-ray at the [facility] [place] with Dr. Shabazz. Patient denies any recent chest pain, shortness of breath, fevers chills or recent infections. After failing conservative measures and discussing all treatment options was Dr. Margarito Price, the patient does wish to proceed with a right total hip arthroplasty. REVIEW OF SYSTEMS: Review Of Systems: Constitutional: Denies change in appetite, fever and weight change. Cardiovasular: Denies chest pain, heart murmur and irregular heartbeat. Respiratory: Reports shortness of breath, but denies cough, pneumonia, tuberculosis and wheezing. Gastrointestinal: Reports diarrhea, but denies constipation, heartburn, nausea, rectal itching, bloody stools and vomiting. Genitourinary: Denies female genital problems. Denies incontinence. Musculoskeletal: Reports trouble walking and weakness, but denies leg swelling and pain. Skin: Denies Raynaud's, history of shingles and tattoo. Neurological: Reports numbness/tingling but denies ambulatory dysfunction, dizziness and tremor. Psychiatric: Denies anxiety, insomnia and stress. Hematologic/Lymphatic: Denies anemia, bleeding/bruising tendency and past transfusion. Reviewed, no changes. PAST MEDICAL HISTORY: Advance Care Plan: No Advance Directives Effective Date: 05/30/2021 Past Medical History: Medical Problems: Cancer - Breast High Blood Pressure, Hypercholesterolemia, Covid-19 Vaccinated, DVT 2022 after lung surgery, Chronic Kidney Disease Stage III, Dementia Accidents: Fracture - (1953) ARM- HEIDI-CEBUL Fracture - (1967) [id number] Surgical Hx: Colon Resection - (1977) (2004) HEIDI- CEBUL Hernia Repair - (2005) HEIDI- CEBUL Bunion LT - (2008) RAMSON Bunion RT - (2008) RAMSON Breast Cancer - (2017) HEIDI- SELF L5-S1 (right) Transforaminal Epidural Steroid Injection - (07/10/2021) Dr Temi Enciso @ [facility] Lobectomy - RT lower lung Chemotherapy - Pt. has completed Anesthesia Complications: None Assistive Devices: Glasses, Dentures Reviewed and updated. SOCIAL HISTORY: Social History: Marital: .Occupation: Retired.Work Status: Retired.Hand Dominance: Right- handed. Personal Habits: Cigarette Use: Former.Smokeless Tobacco: Never Used Smokeless Tobacco.E-Cigarette Use: Never used.Alcohol: Occasionally.Drug Use: Denies Use.Enjoy Exercising: Never Exercises. Reviewed, no changes. VITALS: Ht: 62.3 Wt: 172lb Wt k.019 BMI: 31.2 BP: 142/72 Pulse: 67 Resp: 16 T: 97.2 T: 36.2C Pain Level: 3 O2SatR: 96 ALLERGIES: Statin Drugs MEDICATIONS: Amlodipine Besylate 10 mg 1 by mouth every day, Chlorthalidone 25 mg 1po qday, Letrozole 2.5 mg 1 by mouth every day, Metoprolol Tartrate 100 mg 1 by mouth every day, Calcium 600+D 600-200 MG-Unit 1 pill per day by mouth, Tylenol 325 mg 2 tablets by mouth every 8 hours, Centrum Silver 1 by mouth every day, Donepezil HCL 5 mg at bedtime PRE-OP EXAM: General appearance:NORMAL Other: Eyes: Conjunctivae and lids: NORMAL Pupils: ERR Ears, Nose, Mouth, and Throat: NORMAL Other: Inspection of lips, teeth and gums: NORMAL Other: Neck: Examination of neck: no masses noted. Respiratory: Assessment of respiratory effort: NORMAL Other: Auscultation of lungs: clear to auscultation no wheezes, rhonchi or rales. Cardiovascular: Auscultation of heart: regular rate and rhythm, no murmurs, gallops or rubs. PHYSICAL EXAMINATION: On exam patient does walk with an antalgic gait. She is currently using a cane. Patient's right hip has no tenderness to palpation along the lateral aspect. She does have increased pain with range of motion of the right hip in her groin. Range of motion: Flexion 80, internal rotation 5 with groin pain, external rotation 10 . Sensation was grossly intact to light touch to bilateral lower extremities. IMAGING STUDIES: Previous x-rays of the right hip reveal joint space narrowing, subchondral sclerosis, osteophyte formation consistent with severe stage IV [id number] osteoarthritis with bony erosions of the femoral head with subchondral cyst in the acetabulum and femoral head concern for collapse. IMPRESSION: 1. Severe right hip osteoarthritis 2. Hypertension 3. Dementia 4. Chronic kidney disease stage III 5. Hypercholesterolemia 6. History of DVT 2022 after right lung lower lobe lobectomy 7. Obesity with BMI 31.2 PLAN: Dr. Margarito Price did discuss and review with the patient all treatment options including surgical versus nonsurgical options. Patient does wish to proceed with the above-stated procedure. Potential risks, benefits, and complications of the procedure were discussed in detail including but not limited to , infection, nerve and blood vessel damage, persistent pain, numbness, tingling, paresthesias, blood clot, pulmonary embolism, and requirement for possible further surgery. The patient expressed full understanding and has no further questions for the doctor. Patient does agree to proceed with the above-stated procedure and has signed the surgery consent form. POST-OP MEDICATION PLAN: Pain Medications: Postoperative pain regimen will be initiated by Dr. Margarito Wid maxx the hospital. Due to patient's underlying dementia I do recommend we try to avoid the stronger narcotics. Patient will be on Tylenol and tramadol. She is unable to use nonsteroidal anti-inflammatories due to the chronic kidney disease. Patient does have a walker that she will bring to the hospital. We did discuss postoperative course of treatment with discharge planning and initial goal is for patient to try to go home with home health. She will have help at home. She will be evaluated by physical therapy and case management. DVT Prophylaxis: Due to past history of DVT and chronic kidney disease, patient will use Eliquis 2.5 mg 1 tablet twice daily for 2 weeks following surgery. This will be followed by aspirin 81 mg twice daily for an additional 2 weeks. This dictation was created using voice recognition software. Phonetic and/or grammatical errors may exist. ___ I have re-examined the patient. There are no clinical changes since date of exam. ___ See progress notes for changes. ___ Dictated on admission Date: Time: Signature:
[2024-05-10] VITALS (16 sets, daily range): BP systolic 113–186; BP diastolic 50–121; PULSE 57–71; RESP 15–18; TEMP 36.1–36.9; O2SAT 93–100; BMI 30.5; BMI 29.6
[2024-05-10] MEDS: Magnesium 1 GM over 15 mins IV (08:34)
[2024-05-10] MEDS: Acetaminophen 500 MG Tablet 1000 MG PO ×3 (08:35→20:53)
[2024-05-10] MEDS: Lactated Ringers 1,000 ML 999 ML IV ×2 (08:35→11:10)
[2024-05-10] MEDS: Gabapentin 600 MG Tablet PO (08:35)
--- NOTE | 2024-05-10 09:23 | PCM.PRE.AN2 ---
ASA Classification* ASA Classification ASA Classification: 2 Assessment & Plan Anesthesia* Anesthesia Assessment Anesthesia Assessment: Discussed sedation and/or anesthesia options, risks, benefits, and alternatives with patient/parents/legal guardian/POA. Questions invited. The patient/parents/legal guardian/POA seems to understand and agrees to proceed with anesthesia plan. Reviewed the physical assessment, medical history, allergy history and patient home medications list prior to surgery/procedure/anesthetic and documented any changes. Performed airway and anesthesia risk assessments. Anesthesia Type Anesthesia Type: Spinal Anesthesia Focused Assessment* Temperature: 98.1 F Pulse Rate: 57 Blood Pressure: 144/58 Respiratory Rate: 16 Pulse Ox: 97 Airway Assessment Mouth opens: >3 cm Mallampati Score: II Focused Labs Anesthesia Preop lab: CBC WBC 7.6 K/mm3 (4.4-11.0) 04/13/24 08:57 RBC 4.71 M/mm3 (4.2-5.4) 04/13/24 08:57 Hgb 13.8 g/dL (12.0-15.0) 04/13/24 08:57 Hct 42.6 % (37-47) 04/13/24 08:57 Plt Count 222 K/mm3 (150-450) 04/13/24 08:57 CHEMISTRY Potassium 4.3 mmol/L (3.5-5.1) 04/13/24 08:57 Sodium 140 mmol/L (136-145) 04/13/24 08:57 Magnesium 2.1 mg/dL (1.6-2.6) 04/13/24 08:57 BUN 20 mg/dL (7-18) H 04/13/24 08:57 Creatinine 1.21 mg/dL (0.55-1.02) H 04/13/24 08:57 Glucose 123 mg/dL (74-106) H 04/13/24 08:57 COAG PT 12.6 SECONDS (11.7-14.9) 11/13/22 13:22 Pre-Assessment Diagnosis/Proposed Procedure Planned Operative Procedure(s): DIRECT ANTERIOR RIGHT TOTAL HIP ARTHROPLASTY Anesthesia History 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 When Was Last Pacemaker Check QUESTION #4 FULL TEXT: You/Your Family Experience fever (hyperthermia) with Anesthesia Last Oral Intake Last Oral intake: Last Oral Intake NPO since 22:00 05/10/24 08:31 Meds taken in AM with sips of water? Meds patient instructed to take am of surgery PONV PONV - timber repairer: PONV - timber repairer Female Yes 04/08/24 08:27 HX of Motion Sickness No 04/08/24 08:27 HX of N/V After Surgery No 04/08/24 08:27 Non-Smoker Yes 04/08/24 08:27 Duration of Surgery greater Yes 04/08/24 08:27 than 60 minutes Number of Risk Factors 3 04/08/24 08:27 PONV Score Moderate Risk 04/08/24 08:27 Height & Weight Height & Weight: Anesthesia: Height & Weight Height 5 ft 3 in 05/10/24 08:31 Weight: 78.3 kg 05/10/24 08:31 Body Mass Index (BMI) 30.5 05/10/24 08:31 Respiratory Assessment Respiratory Assessment - timber repairer: Respiratory Tract Infection Hx - timber repairer Hx Respiratory Tract Infection No 04/08/24 08:27 STOP Sleep Apnea STOP Sleep Apnea - timber repairer: STOP Sleep Apnea - timber repairer Hx Hypertension Yes: CONTROLLED WITH MED 04/08/24 08:27 Hx Sleep Apnea No 04/08/24 08:27 CPAP BIPAP Do you snore loudly (louder No 04/08/24 08:27 than talking or can be heard Do you often feel tired/ No 04/08/24 08:27 fatigued/ sleepy during daytime? Has anyone observed you stop No 04/08/24 08:27 breathing during sleep? STOP Results Negative 04/08/24 08:27 QUESTION #5 FULL TEXT : Do you snore loudly (louder than talking or can be heard through closed doors)? 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 repairer: Tobacco Use History - timber repairer Tobacco Use Smoking Status Former smoker 04/08/24 08:27 Hx Tobacco Use No 04/08/24 08:27 Years Smoking Packs Smoked per Day Smoking Cessation Date was Yes - quit smoking within 15 04/08/24 08:27 within the last 15 years years Hx Smoking Cessation Date 10/20/18 04/08/24 08:27 Hx Smoking Cessation No 04/08/24 08:27 Counseling Hematologic Medial History Hematologic Hx - timber repairer: Hematologic Medical Hx - documentation lead Hx of Blood Transfusion No 04/08/24 08:27 Hx of Transfusion in last 3 No 04/08/24 08:27 Months Date of Last Transfusion (if within last 3 months) Ever experience any problems No 04/08/24 08:27 with transfusion(s)? Specify any problems Hx of Preganancy in last 3 No 04/08/24 08:27 Months Nurse Filling Out Transfusion DSCHRIBER 04/08/24 08:27 & Questions: Date: 04/08/24 04/08/24 08:27 Time: 08:29 04/08/24 08:27 Patient unable to answer at this time (ie. confused, unrespo /Reproduction History /Reproductive History - timber repairer: /Reproductive Hx- timber repairer Hx Now No 04/08/24 08:27 Gestational Age (in weeks): EDC: Hx Hx Para Hx Section SAB No 04/08/24 08:27 Active Medications Active Medications: Current Medications Generic Name Dose Route Start Last Admin Trade Name Freq PRN Reason Stop Dose Admin Acetaminophen 1,000 mg 05/10/24 10:00 05/10/24 08:35 Acetaminophen 500 Mg Tablet PO 05/10/24 10:01 1,000 mg X1 ONE Administration Acetaminophen 1,000 mg 05/10/24 14:00 Acetaminophen 500 Mg Tablet PO Q8 MONTY Apixaban 2.5 mg 05/10/24 10:00 Apixaban 2.5 Mg Tablet (Wch) PO BID MONTY Sodium Chloride 78.4 ml/ 0 ml 05/10/24 10:00 Ropivacaine 200 mg/ IV 05/10/24 10:01 Epinephrine HCl 0.6 mg/ X1 ONE Morphine Sulfate 5 mg Dexamethasone Sodium Phosphate 10 mg 05/10/24 10:00 Dexamethasone 10 Mg/Ml Vial IV 05/10/24 10:01 X1 ONE Donepezil HCl 5 mg 05/10/24 22:00 Donepezil Hcl 5 Mg Tablet PO QHS [facility] Enteral Nutritional Formula 237 ml 05/10/24 12:00 Ensure Surgery 237 Ml Liquid PO TIDCM [facility] Famotidine 20 mg 05/10/24 10:00 Famotidine 20 Mg Tablet PO DAILY MONTY Gabapentin 600 mg 05/10/24 10:00 05/10/24 08:35 Gabapentin 600 Mg Tablet PO 05/10/24 10:01 600 mg X1 ONE Administration Lactated Ringer's 1,000 mls @ 999 mls/hr 05/10/24 10:00 05/10/24 08:35 IV 05/10/24 11:00 999 mls/hr .Q1H1M MONTY Administration Cefazolin Sodium 2 gm/ Sodium 110 mls @ 150 mls/hr 05/10/24 10:00 Chloride IV 05/10/24 10:43 PREOP ONE Tranexamic Acid 1,000 mg/ 110 mls @ 660 mls/hr 05/10/24 10:00 Sodium Chloride IV 05/10/24 10:09 X1 ONE Tranexamic Acid 1,000 mg/ 110 mls @ 660 mls/hr 05/10/24 11:00 Sodium Chloride IV 05/10/24 11:09 X1 ONE Lactated Ringer's 1,000 mls @ 999 mls/hr 05/10/24 11:00 IV 05/10/24 12:00 .Q1H1M MONTY Lactated Ringer's 1,000 mls @ 125 mls/hr 05/10/24 12:00 IV 05/10/24 19:59 .Q8H [facility] Magnesium Sulfate 1 gm/ 102 mls @ 408 mls/hr 05/10/24 10:00 05/10/24 08:34 Dextrose IV 05/10/24 10:14 408 mls/hr X1 ONE Administration Cefazolin Sodium 1 gm in 50 mls @ 150 mls/hr 05/10/24 14:00 IV 05/10/24 22:19 Q8 MONTY Insulin Human Lispro 1 - 6 unit 05/10/24 10:00 Insulin Lispro 100 Unit/Ml Insuln.Pen SC 05/10/24 16:00 Q4H PRN PRN BG>/= 180, SEE PROTOCOL Protocol Metoprolol Tartrate 50 mg 05/10/24 10:00 Metoprolol Tartrate 50 Mg Tablet PO BID [facility] Protocol Morphine Sulfate 2 - 4 mg 05/10/24 06:45 Morphine 2 Mg/Ml Syringe IV Q2H PRN PRN Pain Score 4-10 Non-Formulary Medication 2.5 mg 05/10/24 10:00 Letrozole PO DAILY [facility] Ondansetron HCl 4 mg 05/10/24 06:45 Ondansetron 4 Mg/2 Ml Vial IV Q8H PRN PRN NAUSEA Promethazine HCl 12.5 mg 05/10/24 06:45 Promethazine 25 Mg/Ml Syringe IM Q6H PRN PRN NAUSEA/VOMITING Protocol Senna/Docusate Sodium 2 tablet 05/10/24 10:00 Senna/Docusate Sodium 1 Tablet PO BID [facility] Tramadol HCl 50 - 100 mg 05/10/24 06:45 Tramadol 50 Mg Tablet PO Q6H PRN PRN Pain Score 4-10 PFSH Medical History Pain DVT (deep venous thrombosis) Wears glasses Wears dentures Cancer Back pain Arthritis Restless legs Former smoker Shortness of breath on exertion History of edema History of stress test Hypertension Breast cancer Crohn's disease Home Medications ?Medication ?Instructions ?Recorded ?Last Taken ?Type letrozole 2.5 mg tablet 2.5 mg PO DAILY 08/20/22 05/09/24 History metoprolol tartrate 100 mg tablet 50 mg PO BID 08/20/22 05/10/24 History donepezil 5 mg tablet 5 mg PO QHS 04/08/24 05/09/24 History cyanocobalamin (vitamin B-12) 500 1,000 mcg PO DAILY 05/10/24 05/09/24 History mcg tablet (Vitamin B-12) [id number] 8 mg-folic 400 1 tab PO DAILY 05/10/24 05/09/24 History mcg-K 50 mcg-lutein 300 mcg tablet (Centrum Silver Women) Allergy/AdvReac Type Severity Reaction Status Date / Time Srpdelk-DZF-KrF Reductase Allergy Swelling Verified 05/10/24 08:28 Inhibitor Surgical History History of lobectomy of lung History of bronchoscopy History of bunionectomy of right great toe History of bunionectomy of left great toe Hx of colonoscopy Hx of umbilical hernia repair History of bowel resection Hx of lumpectomy Social History Smoking Status: Former smoker substance use type: does not use Review of Systems (Anesthesia) ROS Narrative System reviewed and no additional complaints, except as documented.
[2024-05-10] MEDS: Cefazolin 2 GM in 0.9% Normal Saline (100mL Bag) 100 ML IV (09:29)
[2024-05-10] MEDS: dexAMETHasone 10 MG/ML Vial IV (09:40)
[2024-05-10 09:41] LABS: Bedside Glucose 103 mg/dL (74-106)
[2024-05-10] MEDS: TXA 1000mg in NS100 100ml (IVPB at Incision) 660 MG IV (09:48)
--- NOTE | 2024-05-10 10:00 | HIP_PTH ---
PATIENT: ISIDRO GRAMAJO LOC: MS3 U#:[id number] AGE/SX: 79/F [place] [facility] [place]10[place]: Dr. Margartio Price MD : 1945 BED: 1 DIS: 05/12/2024 SPEC #: [id number] RECD: 05/10/24 12:34 STATUS: DEE JOHNSON #: [id number] CRISTINA: 05/10/24 10:[address]: Margarito Price DEPT: SURGICAL PATHOLOGY RECD BY: Patel Lara ENTERED: 05/10/24 13:38 SP TYPE: TOTAL HIP OTHR DR: Dr. Lloyd Lewis MD Tissues: Hip, NOS Procedures: Decalcification bone/plaque Surgery Specimen Level IV HEADER OPERATION: Total hip anterior approach PRE-OP DIAGNOSIS: Severe right hip osteoarthritis TISSUE SUBMITTED: Femoral head right hip MICROSCOPIC DIAGNOSIS Right hip bone and soft tissue, total hip replacement/resection: Femoral head with severe degenerative osteoarthritic changes. A piece of fibroadipose tissue, fibroconnective tissue and reactive synovial tissue. GILLAIN: 05/13/2024 MICROSCOPIC DESCRIPTION Slides are reviewed. GROSS DESCRIPTION Received is one container labeled with the patient's name and designated bone and soft tissue right hip. The specimen consists of a cantrell femoral head measuring 4.0 x 4.0 x 4.0cm. Also present in the container is a detached piece of bone consistent with femoral neck measuring 3.5 x 1.5 x 1.0cm. Also present in the container are multiple pieces of bone reaming measuring in aggregate 6.0 x 6.0 x 1.0cm. The articular surface displays prominent osteophyte formation, eburnation and bone erosion. Also attached to the femoral neck is a piece of soft tissue measuring 2.5 x 1.5 x 0.5cm. Director Consumer sections are submitted in two cassettes as follows: 1 - soft tissue attached to femoral head, entirely submitted, 2 - femoral head after decalcification. GILLIAN/ 05/10/2024 TC:5 CPT: 43366, 28676
--- NOTE | 2024-05-10 10:20 | RAD_ITS ---
INDICATION: PAIN EXAMINATION/TECHNIQUE: X-RAY - XR Hip intraoperative right hip. COMPARISON: No relevant prior comparison study available FINDINGS: Three images of the right hip were submitted. There is a right total hip arthroplasty in place. The alignment is anatomic. No acute fracture nor dislocation is visualized. There are postsurgical changes within the soft tissues of the lateral thigh. RAD/Hip 1 view with Pelvis IMPRESSION: Right total hip arthroplasty, grossly anatomic in alignment. Electronically Signed: Rosa Anderson MD at 9:32 EDT ,
[2024-05-10] MEDS: TXA 1000mg in NS100 100ml (IVPB at Closure) 660 MG IV (10:42)
--- NOTE | 2024-05-10 10:45 | OP.PCM_ITS ---
Report of Operation Date of Procedure: 05/10/24 Pre-Operative Diagnosis: Right hip primary osteoarthritis Post-Operative Diagnosis: Right hip primary osteoarthritis Surgery/Procedure Performed:: Right minimally invasive direct anterior total hip replacement Description of Surgical Findings:: Stable hip with equal leg length Surgeon: Margarito Price reference data expert: Dov Riley Type of Anesthesia: Spinal Anesthesiologist: Nguyễn Sanchez Special Medications: 2 g Ancef, 1 g TXA at incision, 1 g TXA closure, 10 mg Decadron, joint cocktail (5 mg Duramorph, 30 mL of 0.5% Ropivicaine, 1000 units of epinephrine, 30 mg of Toradol) Specimen's removed: Bony cuts Estimated Blood Loss (mL): 300 Fluids Replaced: 1000 mL crystalloid Description of Procedure: Components used: 1. Insignia Raj femoral stem size 3 high offset 2. Raj trident 2 acetabular shell size 48 mm 3. Raj X3 polyethylene D 4. [place] Biolox delta 36mm, -2.5mm femoral head Brief history operative indications: 79 yo F who failed conservative measures for their hip osteoarthritis. X-rays were consistent with osteoarthritis including joint space narrowing, osteophyte formation and subchondral cysts. Total hip replacement was discussed with the patient with risks and benefits including but not limited to blood loss, DVTs, PEs, neurovascular damage, dislocation, general risks of anesthesia including loss of life. Patient demonstrated an understanding medical clearance is obtained the patient was consented for surgery. Procedure: On the date of procedure the patient's right hip was marked in the preoperative area. Patient was then taken back to the operating room where anesthesia assumed control of the C-spine and airway and administered anesthetic. Patient was transferred to the operating table and placed in the supine position. The hips were placed at the break of the bed and a sacral bump was placed. The right lower extremity was then prepped out in a sterile fashion using chlorhexidine while the surgeon scrubbed. The PA was vital in the positioning of the patient. Upon reentering the room the right lower extremity was draped in the standard orthopedic fashion and the incision was marked. A timeout was called and everyone agreed upon the side, the site, the procedure be performed, antibody given, and patient's identity. At this time incision was made through skin, subcutaneous tissue, and fat down to fascia. The fascia was then incised and the TFL was retracted laterally. A retractor was placed on the lateral border of the femoral neck. Attention was directed to the inferior portion of the approach and all crossing vessels were identified and appropriately coagulated. A retractor was then placed on the medial portion of the femoral neck. The anterior capsule was then cleared of all soft tissue and then H shaped capsulotomy was made. The retractors were then placed inside the capsule. The femoral neck was identified and a cleanup cut was made. At this time a power corkscrew was used to remove the femoral head. Attention was then turned toward the acetabulum where the soft tissues were appropriately retracted and the acetabulum was sequentially reamed to 48 mm. A 48 mm cup was then selected and impacted into place. Acetabular liner was impacted into place and locking mechanism was verified. The position of the acetabular cup was then verified under live fluoroscopy. Attention was then turned to the femur. Soft tissue releases on the medial and lateral femoral neck were appropriately done, the leg was externally rotated and lateralized. A Mg retractor was placed medially and proximally to the greater trochanter this allowed appropriate visualization and exposure of the femoral canal. Rongeour was then used to remove excess lateral bone. A canal finder and entry broach were used to open the proximal canal. Once we verified we were down the femoral canal we subsequently broached up to a size 3 femur. The appropriate neck was placed in the previously selected head was trialed with a -2.5 mm neck. Traction was pulled and the hip was reduced with internal rotation. Once it was appropriately reduced and stability was checked. There was minimal shuck, equal leg lengths and appropriate stability with hyperextension and external rotation as well as with 90? flexion and internal rotation. Fluoroscopy was then also used to verify the position of the components and leg lengths using the contralateral side for comparison. The trial components were then dislocated the proximal femur was again exposed and the components were removed from the wound. The final components were verified and opened. The wound was copiously irrigated out with normal saline. The acetabulum was checked for any residual debris. The final components were placed and impacted. Traction and internal rotation were again used to reduce the hip. After adequate reduction the hip remained stable with appropriate leg lengths. The final components were once again checked with live fluoroscopy and were found to be satisfactory. The wound was then copiously irrigated with normal saline once more, and hemostasis was obtained. Closure was then done using #1 Vicryl runner to close the fascia. A 2-0 vicryl interuppted sutures were used to close the subcutaneous skin. A 3-0 Monocryl and Steri-Strips were used for final skin closure. A Silverlon dressing was placed. Patient was awakened by anesthesia and [facility] Patient was then transferred to the PACU for recovery. During the course of the procedure the physician patient relations specialist (PE) played a vital role. Their intimate knowledge of my steps in the procedure aided in safe and expedient completion of the procedure. The PE played a vital rolls in positioning particularly in obtaining the appropriate positioning of the sacral bump. The PE was also vital in the retraction of soft tissues during the exposure and especially the femoral work as this is a vital part of the pro cedure to prevent complications and fractures. The PE was also vital and protecting soft tissues during times of bony cuts and reaming. He also played a vital role in closure with my direct supervision. The PE was also important during reduction and dislocation of the joint and trials intraoperatively. Postoperative plan: Patient will get 24 hours postop antibiotics. Patient will get in-house physical therapy and will be weight-bear as tolerated. Patient will follow up in office in 2 weeks for a wound check and x-rays. Eliquis for DVT prophylaxis due to previous DVT. Complications No intraoperative complications Admit VTE Documentation VTE Present on Admission: No VTE Mechan Device Prophylaxis: SCD's and Thigh High KURTIS Hose VTE Pharm Prophylaxis ordered?: Yes
[2024-05-10] MEDS: Joint Pain Solution (NO KETOROLAC) IV (10:46)
--- NOTE | 2024-05-10 11:29 | PCM.POST.ANE ---
Anesthesia: Postop Eval I Current Vital Signs Temperature: 96.9 F Pulse Rate: 67 Blood Pressure: 143/121 Respiratory Rate: 18 Pulse Ox: 95 Oxygen Delivery Method: Room Air Assessment Airway patent: Yes Spontaneous unlabored respirations: Yes Mental status: Awake (DENIES PAIN) and Calm nausea: No Vomiting: No Anesthesia Complication: No Fluid Hydration Crystalloid volume administer (ml): 1,000 Total IV fluid infused: 1,000 Progress Note Anesthesia document: Postop Eval 1 completed: Yes
--- NOTE | 2024-05-10 11:38 | RAD_ITS ---
STUDY: X-RAY - PELVIS AND RIGHT HIP REASON FOR EXAM: Female, 79 years old. Post Op -- AP both hips on single gopi/lateral of op hip PACU TECHNIQUE: 2 views of the pelvis and hip. COMPARISON: None. FINDINGS: The patient is status post right total hip replacement. There is good alignment. Postoperative soft tissue changes. RAD/Hip Min 2 Views (Portable) IMPRESSION: Status post right total hip replacement. There is good alignment. Postoperative soft tissue changes. Electronically Signed: Ike Martinez MD at 12:26 EDT ,
[2024-05-10] MEDS: Ondansetron 4 MG/2 ML Vial IV (12:36)
[2024-05-10] MEDS: Ensure Surgery 237 ML LIQUID PO (13:26)
[2024-05-10] MEDS: Famotidine 20 MG Tablet PO (13:26)
[2024-05-10] MEDS: Senna/Docusate Sodium 1 Tablet 2 TABLET PO ×2 (13:26→20:54)
--- NOTE | 2024-05-10 14:00 | PN.HOSP_ITS ---
Reason for Visit Reason for Visit: Diagnoses Encounter for other preprocedural examination (05/10/24) Subjective Subjective Patient status post right minimally invasive direct anterior total hip replacement per Dr. Penaloza. Patient notes pain controlled, denies any paresthesias, moving the RLE with sensation returning. She denies any nausea or upset stomach and is tolerating liquids in the PACU. Patient denies fevers, chills, nausea, emesis, abdominal pain, chest pain or dyspnea. Objective Data Objective Data Vital Signs: Vital Signs Temp Pulse Resp BP Pulse Ox O2 Del Method O2 Flow Rate 97.7 F L 60 18 147/67 H 100 Nasal Cannula 4 05/10/24 12:46 05/10/24 12:46 05/10/24 12:46 05/10/24 12:46 05/10/24 12:46 05/10/24 12:46 05/10/24 12:46 Oxygen Flow Rate (L/min) 4 Oxygen Delivery Method Nasal Cannula Weight: 172 lb 9.951 oz Body Mass Index (BMI) 29.6 Intake & Output: Intake and Output for Last 24 Hours 05/08/24 05/09/24 05/10/24 23:59 23:59 23:59 Intake Total 1432 / 1432 Balance 1432 / 1432 Lab / Micro Data 04/13/24 08:57 04/13/24 08:57 Labs: Laboratory Results - last 24 hr 05/10/24 08:37: POC Glucose 103 Micro: Microbiology 04/13/24 08:57 Swab (Method) Nasal Screen MRSA/MSSA - Final Radiography Diagnostic Testing: Radiology Impression Hip X-Ray 05/10/24 11:38 IMPRESSION: Status post right total hip replacement. There is good alignment. Postoperative soft tissue changes. Electronically Signed: Ike Martinez MD at 12:26 EDT , Physical Exam Narrative Physical Examination: General: Awake, alert, oriented x 3 and cooperative, seated upright in the PACU bed, denies any pain at this time. Skin: Normal color, normal turgor, no icterus, no cyanosis except status post right total hip replacement with dressing in place, no drainage. HEENT: AT/NC, EOMI, PERRLA, mildly dry MM. Lungs: Mildly diminished, greater bases, appropriate effort, no rales, ronchi or wheezing. Heart: Regular rate and rhythm; no gallop, rub audible. Abdomen: Soft, obese, NTTP, ND, hyperactive BS, no appreciated HSM. Extremities: No cyanosis, no clubbing, mild ankle nonpitting edema present, status post right total hip replacement with dressing in place, drainage Neurological: Patient awake, alert, oriented as noted, cognitive function intact; pupils equally reactive to light and accommodation, cranial nerves grossly normal, moving all 4 extremities except expected limitation right lower extremity given right total hip replacement recently, strength accordingly moderately to severely global decreased but improving. Psychiatric: Affect appears normal, no acute evidence of depressive or anxiety feelings. Assessment & Plan Assessment/Plan (1) Osteoarthritis: PLAN: Plan The patient is a 79 y/o F w/ PMHx: HTN, HLD, Obesity, Hx NSCLC Right Lung status post former lobectomy considered in remission, Former tobacco use, Hx VTE, RLS, Crohn's disease, Hx breast cancer unclear type status post previous lumpectomy considered in remission who presents to the [facility] on 05/10/2024 with history of right hip primary osteoarthritis for planned right minimally invasive direct anterior total hip replacement per Dr. Price. #1. Severe Osteoarthritis, right hip: Failed conservative therapies and treatments, admitted per Dr. Price, status post 05/10/2024 right minimally invasive direct anterior total hip replacement, post-operative pain management, bowel regimen, DVT Prophylaxis, PT/OT/CM per Orthopedic surgery discretion. #2. History of breast cancer: Status post previous lumpectomy, unclear exact breast cancer type, unclear exact interventions but considered currently per her report in remission, continue patient home letrozole regimen. #3. Hypertension: Continue home regimen including metoprolol, PRN hydralazine. #4. Hyperlipidemia: Not on regimen, defer to outpatient. #5. History Non Small Cell Lung CA: Unclear exact extent, status post previous lobectomy, unclear radiation/chemotherapy history, currently consider remission. #6. Former tobacco use: Encourage continued tobacco cessation. #7. Restless leg syndrome: Per current list does not appear to be on a regimen, may add if necessary. #8. Chart reported history of chronic disease: Status post bowel resection, not on any chronic regimen per current report, encourage continued outpatient follow-up with gastroenterology as previously arranged. #9. Obesity: Weight loss and lifestyle changes encouraged. #10. History of VTE: History of DVT, per records after previous surgery, not on any chronic current regimen. #11. DVT prophylaxis: SCDs, chemoprophylaxis per surgery discretion given recent OR. Charges/Coding Visit Charges Inpatient E&M: 58770 Subs Hosp L3
[2024-05-10] MEDS: Lactated Ringers 1,000 ML 125 ML IV (14:21)
--- NOTE | 2024-05-10 15:03 | POSTOPAN2_ITS ---
Anesthesia Postop Eval I Sum Postop Eval Completion status Anesthesia document: Postop Eval 1 completed: Yes Anesthesia Postop Eval I Summary Anesthesia Postop Eval I Summary: Anesthesia Postop Eval I: Assessment Summary Airway patent Yes 05/10/24 11:30 [email or web address] Spontaneous unlabored Yes 05/10/24 11:30 MANAGER [email or web address] respirations Mental status Awake - DENIES 05/10/24 11:30 MANAGER [email or web address].SCHR PAIN,Calm nausea No 05/10/24 11:30 MANAGER [email or web address].SCHR Vomiting No 05/10/24 11:30 MANAGER [email or web address].SCHR Anesthesia Postop Eval I: Fluid Summary Crystalloid volume administer 1,000 05/10/24 11:30 MANAGER [email or web address].SCHR (ml) Colloids volume administered ( ml) Blood Product volume administered (ml) Total IV fluid infused 1,000 05/10/24 11:30 MANAGER [email or web address].SCHR Anesthesia Postop Eval I: Summary Notes Anesthesia Complication No 05/10/24 11:30 MANAGER [email or web address] Anesthesia Complication Comment: Post-operative progress note Anesthesia: Postop Eval II Evaluation Mental status: Awake and Calm Pain Level: 1 nausea: No Vomiting: No Complications Anesthesia Complication: No
--- NOTE | 2024-05-10 15:03 | PCM.POSTANE2 ---
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 Spontaneous unlabored Yes 05/10/24 11:30 WAREHOUSE INSULATION [email or web address].SCHR respirations Mental status Awake - DENIES 05/10/24 11:30 WAREHOUSE INSULATION [email or web address].SCHR PAIN,Calm nausea No 05/10/24 11:30 WAREHOUSE INSULATION [email or web address].SCHR Vomiting No 05/10/24 11:30 WAREHOUSE INSULATION [email or web address].SCHR Anesthesia Postop Eval I: Fluid Summary Crystalloid volume administer 1,000 05/10/24 11:30 WAREHOUSE INSULATION [email or web address].SCHR (ml) Colloids volume administered ( ml) Blood Product volume administered (ml) Total IV fluid infused 1,000 05/10/24 11:30 WAREHOUSE INSULATION [email or web address].SCHR Anesthesia Postop Eval I: Summary Notes Anesthesia Complication No 05/10/24 11:30 WAREHOUSE INSULATION [email or web address].SCHR Anesthesia Complication Comment: Post-operative progress note Anesthesia: Postop Eval II Evaluation Mental status: Awake and Calm Pain Level: 1 nausea: No Vomiting: No Complications Anesthesia Complication: No
[2024-05-10] MEDS: proMETHazine 25 MG/ML Syringe 12.5 MG IM (15:27)
[2024-05-10] MEDS: 0.9% Saline Lock 10 ML Syringe IV (15:27)
--- NOTE | 2024-05-10 15:37 | CASEMGMT ---
Social Work- Per admitting RN, pt declines information and does not wish to complete directives at this time. BRIANNE Pardo
[2024-05-10 16:22] LABS: Bedside Glucose 166 mg/dL (74-106)
[2024-05-10] MEDS: Cefazolin 1 GM/50 ML BAG IV (17:27)
[2024-05-10] MEDS: APIXABAN 2.5 MG TABLET (WCH) PO (20:54)
[2024-05-10] MEDS: Donepezil HCl 5 MG Tablet PO (20:54)
[2024-05-10] MEDS: Metoprolol Tartrate 50 MG Tablet PO (21:50)
[2024-05-11 00:36] VITALS: BP 148/64; PULSE 81; RESP 18; TEMP 37.2; O2SAT 95
[2024-05-11] MEDS: 0.9% Saline Lock 10 ML Syringe IV (00:38)
[2024-05-11] MEDS: Cefazolin 1 GM/50 ML BAG IV (00:39)
[2024-05-11] MEDS: Acetaminophen 500 MG Tablet 1000 MG PO ×3 (05:43→21:52)
[2024-05-11] MEDS: traMADol 50 MG Tablet PO ×3 (06:52→18:31)
[2024-05-11 07:01] LABS: Hemoglobin 11.5 g/dL (12.0-15.0); Mean Corp Hgb Conc 32.9 g/dL (32-36); Mean Corpuscular Hgb 29.6 pg (27.0-32.0); Mean Corpuscular Volume 90.2 fL (81-99); Mean Platelet Vol. 10.7 fl (6.2-12.0); Platelet Count 178 K/mm3 (150-450); RBC Distribution Width CV 15.3 % (11.6-14.6); RBC Distribution Width SD 50.2 fl (35.1-43.9); Red Blood Count 3.88 M/mm3 (4.2-5.4); White Blood Count 14.3 K/mm3 (4.4-11.0)
[2024-05-11 07:26] LABS: Anion Gap 4 (5-15); BUN 19 mg/dL (7-18); BUN/Creat Ratio 16.4 RATIO (10-20); Calcium,Total 8.7 mg/dL (8.5-10.1); Chloride 106 mmol/L (98-107); Creatinine, Serum 1.16 mg/dL (0.55-1.02); EST Glomerular Filtration Rate 48 mL/min (>60); Est Glom Filt Rate - Afr Amer 58 mL/min (>60); Estimated Creatinine Clearance 40.47 ml/min; Glucose 134 mg/dL (74-106); Potassium 4.1 mmol/L (3.5-5.1); Sodium Level 139 mmol/L (136-145)
--- NOTE | 2024-05-11 07:45 | PCM.PN.ORT ---
Subjective Subjective The patient was sitting in bed upon examination with spouse present. Patient denies any chest pain, shortness of breath, dizziness, lightheadedness, nausea or vomiting, or calf pain. Pain is controlled on medications. No adverse overnight events. Patient states overall she is doing well this morning. She states she has been up walking to the bathroom. Objective Data Objective Data Vital Signs: Vital Signs Temp Pulse Resp BP Pulse Ox O2 Del Method O2 Flow Rate 99 F 81 18 148/64 H 95 Room Air 4 05/11/24 00:36 05/11/24 00:36 05/11/24 00:36 05/11/24 00:36 05/11/24 00:36 05/11/24 00:36 05/10/24 12:46 Oxygen Flow Rate (L/min) 4 Oxygen Delivery Method Room Air Weight: 78.3 kg Body Mass Index (BMI) 29.6 Intake & Output: Intake and Output for Last 24 Hours 05/09/24 05/10/24 05/11/24 23:59 23:59 23:59 Intake Total 3369.5 / 3369.5 350 / 350 Balance 3369.5 / 3369.5 350 / 350 Lab / Micro Data 05/11/24 06:45 05/11/24 06:45 Labs: Laboratory Results - last 24 hr 05/10/24 08:37: POC Glucose 103 05/10/24 16:00: POC Glucose 166 H 05/11/24 06:45: WBC 14.3 H, RBC 3.88 L, Hgb 11.5 L, Hct 35.0 L, MCV 90.2, MCH 29.6, MCHC 32.9, RDW Std Deviation 50.2 H, RDW Coeff of Carmen 15.3 H, Plt Count 178, MPV 10.7, Sodium 139, Potassium 4.1, Chloride 106, Carbon Dioxide 29.0, Anion Gap 4 L, BUN 19 H, Creatinine 1.16 H, Estim Creat Clear Calc 40.47, Est GFR (MDRD) Af Amer 58 L, Est GFR (MDRD) Non-Af 48 L, BUN/Creatinine Ratio 16.4, Glucose 134 H, Calcium 8.7 Micro: Microbiology 04/13/24 08:57 Swab (Method) Nasal Screen MRSA/MSSA - Final Radiography Diagnostic Testing: Radiology Impression Hip X-Ray 05/10/24 11:38 IMPRESSION: Status post right total hip replacement. There is good alignment. Postoperative soft tissue changes. Electronically Signed: Ike Martinez MD at 12:26 EDT , Physical Exam Narrative Vital signs stable and afebrile. Right hip is soft and supple SCDs and KURTIS hose are in place bilaterally Patient is able to plantarflex and dorsiflex actively. Sensation is intact to light touch to saphenous, sural, superficial and deep peroneal, and tibial distribution. Dressing is clean dry and intact. Negative Homans bilaterally, negative signs and symptoms of DVT. Const alert, oriented x3 and no apparent distress Assessment & Plan Assessment/Plan (1) S/P total right hip arthroplasty: PLAN: 1. S/P direct anterior right total hip arthroplasty POD #1 2. Continue Pain Medications: Tylenol and tramadol. We are avoiding nonsteroidal anti-inflammatories due to her chronic kidney disease. 3. DVT Prophylaxis: Patient will be placed on Eliquis for 2 weeks postoperatively due to past history of DVT. After 2 weeks of Eliquis she will begin aspirin 81 mg twice daily for an additional 2 weeks. DVT prophylaxis plan was discussed in detail. Patient voiced understanding. She is not on any long-term anticoagulation with previous DVT. 4. PT/OT: Weightbearing as tolerated with walker. Continue anterior hip precautions 5. H & H: 11.5/35.0, asymptomatic. Labs have been stable. Patient's kidney function has also been stable. She does have chronic kidney disease. 6. Reactive leukocytosis: 14.3, Afebrile. Patient did receive Decadron intraoperatively. No clinical signs of infection. 7. Encouraged Incentive Spirometry: Patient does have past history of right lower lobe lobectomy. She was followed by Dr. Shabazz for NSCLC. Encouraged the incentive spirometer for the next 1 week. 8. Patient is aware of postoperative constipation that can occur from 1-3 days postoperatively. Will continue with senna 2 tablets twice daily until first bowel movement. Patient was advised if not having a bowel movement after day 3 she is to contact orthopedics so appropriate change can be made. Patient voiced understanding. 9. Continue postoperative medical treatment per medicine 10. Disposition: Plan will be for probable discharge home this afternoon as long as patient is medically stable, tolerates therapy, and pain is adequately controlled. Case management is currently on board in which patient. Appreciate recommendations from physical therapy. Patient will most likely require home health physical therapy upon discharge. Patient would like her prescriptions E scribed to [facility]. She will follow-up per postoperative instructions. Patient will contact our office with any concerns or questions upon discharge. I have reviewed the [place] Automated Rx Reporting System (OARRS) report for this patient for refill pattern and other prescriber involvement as part of the appropriate surveillance for the provision of acute and chronic controlled medications. The report was requested and reviewed on the date of this entry and was considered in the prescribing process. This dictation was created using voice recognition software. Phonetic and/or grammatical errors may exist. (2) Deep vein thrombosis (DVT) of left lower extremity:
--- NOTE | 2024-05-11 07:50 | PCM.DC ---
Discharge Instructions Diet Discharge Diet: No restrictions Activity Discharge Activity: May Not Drive (No driving for 6 weeks postoperatively. Must also be off all narcotics and able to walk 100 feet without the use of cane or walker.) May shower in (days): 1 (only if incision is dry and without drainage. Do NOT soak/submerge in tub/pool/israel/stream/hot tub.)) Ice area for (Minutes): 20 (Every 1-2 hours while [address] barrier between ice and skin.) Weight Bearing Status: Weight bearing as tolerated Keep extremity elevated above heart level: Operative Extremity Dressing / Incision Call your doctor if your incision/area has: Continuous Slow Oozing, Sudden Increased Bleeding, Increased Pain/ Swelling, Increased Redness and Foul Smelling Discharge Call your doctor if you observe: Fever of 101 or Higher, Shortness of breath, Chest pain, Calf discomfort and Uncontrolled pain Remove Dressing in: 3 days (Okay to remove dressing on May 15, 2024) Additional Dressing/Incision Instructions:: Follow [facility] Post-op Instructions. DVT prophylaxis: Continue with Eliquis as prescribed for 2 weeks postoperatively. Once you are finished with the Eliquis on the next day begin aspirin 81 mg twice daily for an additional 2 weeks. Once postoperative dressing has been removed, only use gentle soap and water over the incision. Do not use any ointments, Neosporin, salves, alcohol pads over the incision for 6 weeks postoperatively. Do not submerge underwater for 6 weeks postoperatively. Continue with KURTIS hose/elastic stockings for 2 weeks postoperatively. May remove at nighttime but needs to be placed back on the leg during the day. Do NOT use alcohol with narcotic pain medication. Do NOT make important decisions while taking narcotic medication. If you have problems with taking your medication (rash, itching, nausea, etc.) call the office at once. Follow Up Care Test Results: Test results from this visit will be discussed in further detail at your follow-up appointment, if applicable. Discharge Plan Admission Admit Date/Time: 05/10/24 12:24 Attending Provider: Margarito Price Primary Care Provider: Lloyd Lewis Consulting Providers: Aga Verma; Natacha Samaniego Discharge Orders/Prescriptions Prescriptions: New acetaminophen 500 mg Tablet 1,000 mg PO TID Qty: 0 0RF Rx Instructions: Do not take more than 3000 mg Tylenol in a 24-hour period. Eliquis 5 mg Tablet 2.5 mg PO BID 14 Days Qty: 28 0RF Rx Instructions: Take for 2 weeks postoperatively for DVT prophylaxis due to past history of DVT. famotidine 20 mg Tablet 20 mg PO DAILY 30 Days Qty: 30 0RF sennosides-docusate sodium [Stimulant Laxative Plus] 8.6-50 mg Tablet 2 tab PO BID 3 Days Qty: 12 0RF Rx Instructions: Take until first bowel movement, then as needed tramadol 50 mg Tablet 50 - 100 mg PO Q6H PRN PRN (Reason: Pain Score 4-10) 7 Days Qty: 42 0RF Continued metoprolol tartrate 100 mg tablet 50 mg PO BID Patient Comments: TAKE 1/2 TABLET BY MOUTH TWICE DAILY letrozole 2.5 mg tablet 2.5 mg PO DAILY Patient Comments: TAKE 1 TABLET BY MOUTH EVERY DAY donepezil 5 mg tablet 5 mg PO QHS Centrum Silver Women 8 mg iron-400 mcg-50 mcg tablet 1 tab PO DAILY cyanocobalamin (vitamin B-12) [Vitamin B-12] 500 mcg tablet 1,000 mcg PO DAILY Referrals / Follow Up: Lloyd Lewis MD [Primary Care Provider] - 05/20/24 11:05 am (Follow-up with primary care physician in 2-3 weeks) Dov Riley PA-C [Med Staff - [facility] Practice Prof] - 05/26/24 3:30 pm Disposition Disposition (needs filled in before D/C Order can be placed): Home Health Service
[2024-05-11 10:00] VITALS: BP 130/53; PULSE 65; RESP 14; TEMP 37.1; O2SAT 94
--- NOTE | 2024-05-11 10:13 | CASEMGMT ---
Addendum entered by Itzel Altman 05/11/24 14:30: Notified by charge nurse that pt will not dc today. Updated Laura at [facility]. Addendum entered by Itzel Altman 05/11/24 11:02: Received tc from Laura, they will plan to see pt tomorrow. Pt updated. Addendum entered by Itzel Altman 05/11/24 10:42: TC to [facility] Retail pharmacy, no cost for faviola. Original Note: NILSON LOVE Assessment: Face to Face with pt for initial transition planning/care coordination assessment. NILSON LOVE introduced self and role at [facility], pt voices understanding and consents to assessment. Pt is A&O x4 and answers all questions appropriately at this time. Pt sitting up in chair in no distress with dtr and at bedside. Pt agreeable to assessment with visitors present. Care providers, pharmacy, and demographics verified/updated. Admitting Dx: total hip anterior approach PCP:Joshua Specialists:negra Price Pharmacy: [facility] Insurance: [employer] Prescription Benefit: yes LNOK: Olayinka Edmondson, ; Alan Edmondson, son; Raya Mya, dtr Living Arrangements: Pt lives with in a two story home with 6 steps to enter with a rail. Pt reports she was I in ADLs prior to surgery but assisted with IADLs. Pt denies concerns at home. Transportation: Pt drives self and denies concerns with transportation. to transport pt until she can drive again. DME:shower chair, walker, cane HHC/SNF: Denies hx of Pt states no concerns with going home at time of dc. Pt is requesting [facility] for therapy at home. Patient was provided a list of [facility] providers including quality and resource use data and consistent with the patient?s preferred geographic region, medical needs, and insurance network were provided from the [employer] Guide. Pt chose 1. [facility] 2. N. TC to Laura at [facility], referral made for PT and SN via . Will await decision to accept. Pt states no further concerns/needs. CM to follow. Advised pt to ask CM if any further question/concerns/needs arise, voices understanding. Pt Goal: Home with HHC Plan: Home with HHC, therapy evals pending. Gordon DEVINE CM
--- NOTE | 2024-05-11 10:17 | NURSING ---
CM IN TALKING W/PT AND FAMILY
--- NOTE | 2024-05-11 10:22 | CASEMGMT ---
Met with patient to complete ADHIKARI form. ADHIKARI form explained to patient who voiced understanding and signed form. Original form placed in pt?s chart and copy provided to patient. Raya Vasquez, Discharge Planning Asst
[2024-05-11 10:31] VITALS: PULSE 65
[2024-05-11] MEDS: Famotidine 20 MG Tablet PO (10:31)
[2024-05-11] MEDS: Metoprolol Tartrate 50 MG Tablet PO ×2 (10:31→21:52)
[2024-05-11] MEDS: APIXABAN 2.5 MG TABLET (WCH) PO ×2 (10:31→21:52)
[2024-05-11] MEDS: Ensure Surgery 237 ML LIQUID PO ×2 (10:37→16:44)
[2024-05-11 14:00] VITALS: BP 148/57; PULSE 64; RESP 13; TEMP 37.6; O2SAT 96
[2024-05-11 20:30] VITALS: BP 150/60; PULSE 70; RESP 16; TEMP 37.1; O2SAT 96
[2024-05-11 21:52] VITALS: BP 156/63; PULSE 75
[2024-05-11] MEDS: Donepezil HCl 5 MG Tablet PO (21:52)
--- NOTE | 2024-05-12 01:08 | NURSING ---
Pt set bed exit off. Pt walked to bathroom w walker and asst of2. Pt struggled to get to the bathroom. Pt at times did not know how to walk. pt needed quues to walk. Pt verbally abusive to leo. Pt flipped him the middle fingers. Pt very angry toward Leo But he did not reply. Pt was not able to return walking back to bed. Pt had to be put in a chair w wheels and rolled back to bed.
[2024-05-12 02:30] VITALS: BP 159/70; PULSE 65; RESP 16; TEMP 36.6; O2SAT 95
[2024-05-12] MEDS: Acetaminophen 500 MG Tablet 1000 MG PO (06:37)
[2024-05-12 06:40] LABS: Hematocrit 34.3 % (37-47); Hemoglobin 11.4 g/dL (12.0-15.0); Mean Corp Hgb Conc 33.2 g/dL (32-36); Mean Corpuscular Hgb 30.2 pg (27.0-32.0); Mean Corpuscular Volume 90.7 fL (81-99); Mean Platelet Vol. 10.8 fl (6.2-12.0); Platelet Count 164 K/mm3 (150-450); RBC Distribution Width CV 15.9 % (11.6-14.6); Red Blood Count 3.78 M/mm3 (4.2-5.4); White Blood Count 12.6 K/mm3 (4.4-11.0)
[2024-05-12 08:22] VITALS: BP 149/92; PULSE 72; RESP 18; TEMP 37; O2SAT 94
[2024-05-12 08:27] VITALS: PULSE 72
[2024-05-12] MEDS: APIXABAN 2.5 MG TABLET (WCH) PO (08:27)
[2024-05-12] MEDS: Senna/Docusate Sodium 1 Tablet 2 TABLET PO (08:27)
[2024-05-12] MEDS: Famotidine 20 MG Tablet PO (08:27)
[2024-05-12] MEDS: Metoprolol Tartrate 50 MG Tablet PO (08:27)
--- NOTE | 2024-05-12 09:52 | CASEMGMT ---
Addendum entered by Itzel Altman 05/12/24 10:02: Per Dov, pt sees a neurologist at [facility]. TC to 's office to see if they have this information on record. Spoke with Ivelisse parsons who states pt sees Gini DIETZ for . Updated Dov. Original Note: NILSON LOVE updated by charge nurse of last evening and pt difficulty with getting back to bed from bathroom and pt behavior towards . NILSON LOVE into pt room, pt lying in bed with at bedside. Pt did not recall last evening. reports he has his son and dtr that live close and are able to help. He still feels safe to take pt home with [facility]. He is aware that [facility] will see pt tomorrow. Updated Dov DIETZ who asked to have speak with him outside of the room. NILSON LOVE took to meeting room with Dov. Updated Laura at [facility] that pt is dc'ing today.
--- NOTE | 2024-05-12 10:19 | PN.ORTHO_ITS ---
Subjective Subjective The patient was sitting in bedside chair with her present upon examination. Patient denies any chest pain, shortness of breath, dizziness, lightheadedness, nausea or vomiting, or calf pain. Pain is controlled on medications. No adverse overnight events. Patient is a little sore after working with physical therapy. Per nursing patient also had some sundowning in which she was combative towards her overnight. Patient appears to be doing very well today and there is no signs of this. She does have documented dementia with her primary care provider. She is seeing a neurologist Dr. Bustamante. Patient's also states that it is common for her to have this combativeness at nighttime on occasion. He does feel safe. I did have a separate conversation away from the patient with her about the situation. They state they have a follow-up with the neurologist in July 2024. Patient's also states she had a similar experience after her previous lung surgery this year. They do have home health set up. Medicine is on board in which I did discuss the case with her. Objective Data Objective Data Vital Signs: Vital Signs Temp Pulse Resp BP Pulse Ox O2 Del Method O2 Flow Rate 98.6 F 72 18 149/92 H 94 Room Air 2 05/12/24 08:22 05/12/24 08:27 05/12/24 08:22 05/12/24 08:22 05/12/24 08:22 05/12/24 08:22 05/11/24 10:00 Oxygen Flow Rate (L/min) 2 Oxygen Delivery Method Room Air Weight: 78.3 kg Body Mass Index (BMI) 29.6 Intake & Output: Intake and Output for Last 24 Hours 05/10/24 05/11/24 05/12/24 23:59 23:59 23:59 Intake Total 3369.5 / 3369.5 350 / 350 Balance 3369.5 / 3369.5 350 / 350 Lab / Micro Data 05/12/24 06:28 05/11/24 06:45 Labs: Laboratory Results - last 24 hr 05/12/24 06:28: WBC 12.6 H, RBC 3.78 L, Hgb 11.4 L, Hct 34.3 L, MCV 90.7, MCH 30.2, MCHC 33.2, RDW Std Deviation 52.0 H, RDW Coeff of Carmen 15.9 H, Plt Count 164, MPV 10.8 Micro: Microbiology 04/13/24 08:57 Swab (Method) Nasal Screen MRSA/MSSA - Final Physical Exam Narrative Vital signs stable and afebrile. Right hip is soft and supple SCDs are currently off as patient is just getting back from therapy. These will be placed back on. KURTIS hose are in place. Patient is able to plantarflex and dorsiflex actively. Sensation is intact to light touch to saphenous, sural, superficial and deep peroneal, and tibial distribution. Dressing is clean dry and intact. Negative Homans bilaterally, negative signs and symptoms of DVT. Const alert, oriented x3 and no apparent distress Assessment & Plan Assessment/Plan (1) S/P total right hip arthroplasty: PLAN: 1. S/P direct anterior right total hip arthroplasty POD #2 2. Continue Pain Medications: Tylenol and tramadol. I did discuss with the patient and her trying to avoid narcotics as much as possible. I would only use the tramadol for significant breakthrough pain. I did recommend some gentle massage over the thigh as she is complaining of some thigh soreness. Avoid massaging near the incision. We are avoiding nonsteroidal anti- inflammatories due to her chronic kidney disease. 3. DVT Prophylaxis: Patient will be placed on Eliquis for 2 weeks postoperatively due to past history of DVT. After 2 weeks of Eliquis she will begin aspirin 81 mg twice daily for an additional 2 weeks. DVT prophylaxis plan was discussed in detail. Patient voiced understanding. She is not on any long- term anticoagulation with previous DVT. 4. PT/OT: Weightbearing as tolerated with walker. Continue anterior hip precautions 5. H & H: 11.4/34.3, asymptomatic. Labs have been stable. 6. Reactive leukocytosis: Trending down and currently 12.6, Afebrile. Patient did receive Decadron intraoperatively. No clinical signs of infection. 7. Encouraged Incentive Spirometry: Patient does have past history of right lower lobe lobectomy. She was followed by Dr. Shabazz for NSCLC. Encouraged the incentive spirometer for the next 1 week. 8. Patient is aware of postoperative constipation that can occur from 1-3 days postoperatively. Will continue with senna 2 tablets twice daily until first bowel movement. Patient was advised if not having a bowel movement after day 3 she is to contact orthopedics so appropriate change can be made. Patient voiced understanding. 9. Dementia: Patient did experience some sundowning overnight in which she was combative and argumentative with her . I did have a separate conversation with her in which he states that this is common in which patient does this on occasion. They have noticed this occurring since her previous surgery on her lung. She does follow neurologist Dr. Bustamante. There is an appointment in July with a neurologist. I do feel it would be best to get patient in her own home environment with her situation. I am concerned if she would try to go to a correction that this could make the situation worse. I would appreciate recommendations from medicine. At the minimum I would like patient to follow-up with the primary care provider in 2 weeks. 10. Continue postoperative medical treatment per medicine: Case was discussed with medicine and they will evaluate the patient today. I do feel patient is having some sundowning with her dementia. I do also feel the best place for the patient would be at home in her own home environment. 11. Disposition: Patient has been stable with therapy. She does have soreness with that side. I do feel her dementia has affected some of her postoperative recovery. I do feel the best place for patient will be home with her dementia in her own home environment. I did recommend with the patient and her to continue with the extra strength Tylenol primarily for pain and limit the narcotic as much as she can. I do recommend some gentle massage on the muscles as she is complaining of muscle soreness. Patient did have prescriptions already E scribed to [facility]. She has home health physical therapy set up. I did discuss case with medicine and the hospitalist. As long as patient is medically stable plan will be for discharge home with home health. Patient will follow-up with the primary care physician in the next 2-3 weeks. Case management is currently on board with assisting. If patient has any worsening symptoms I did recommend them to contact her primary care physician. Upon discharge patient will contact our office with any concerns or questions. She will follow-up per postoperative instructions. I have reviewed the [place] Automated Rx Reporting System (OARRS) report for this patient for refill pattern and other prescriber involvement as part of the appropriate surveillance for the provision of acute and chronic controlled medications. The report was requested and reviewed on the date of this entry and was considered in the prescribing process. This dictation was created using voice recognition software. Phonetic and/or grammatical errors may exist. (2) Deep vein thrombosis (DVT) of left lower extremity:
--- NOTE | 2024-05-12 11:43 | PN_ITS ---
Subjective Subjective Patient seen and examined. Her was by her bedside. She had no active complaint. Pain was well-controlled. Previous times otherwise negative. She has remained hemodynamically stable. The orthopedics PA tells me that had talked about patient having some sundowning episodes. Patient does have dementia and is on donepezil. According to the this is not new and has been going on at home with episode of combativeness. said he can deal with this at home and is okay with patient being discharged home. She denies any fever or chills and denies any urinary symptoms. Objective Data Objective Data Vital Signs: Vital Signs Temp Pulse Resp BP Pulse Ox O2 Del Method O2 Flow Rate 98.6 F 72 18 149/92 H 94 Room Air 2 05/12/24 08:22 05/12/24 08:27 05/12/24 08:22 05/12/24 08:22 05/12/24 08:22 05/12/24 08:22 05/11/24 10:00 Oxygen Flow Rate (L/min) 2 Oxygen Delivery Method Room Air Weight: 172 lb 9.951 oz Body Mass Index (BMI) 29.6 Intake & Output: Intake and Output for Last 24 Hours 05/10/24 05/11/24 05/12/24 23:59 23:59 23:59 Intake Total 3369.5 / 3369.5 350 / 350 Balance 3369.5 / 3369.5 350 / 350 Lab / Micro Data 05/12/24 06:28 05/11/24 06:45 Labs: Laboratory Results - last 24 hr 05/12/24 06:28: WBC 12.6 H, RBC 3.78 L, Hgb 11.4 L, Hct 34.3 L, MCV 90.7, MCH 30.2, MCHC 33.2, RDW Std Deviation 52.0 H, RDW Coeff of Carmen 15.9 H, Plt Count 164, MPV 10.8 Micro: Microbiology 04/13/24 08:57 Swab (Method) Nasal Screen MRSA/MSSA - Final Physical Exam Const alert, oriented x3, no apparent distress and well nourished General Appearance: cooperative and well developed HEENT normocephalic, head/scalp atraumatic, moist oral mucous membranes, oropharynx normal and gingiva normal Eyes PERRL and EOMs intact bilaterally Neck no lymphadenopathy, supple and no JVD General: trachea midline Resp normal respiratory effort, normal air movement and clear to auscultation bilaterally Cardio regular rate, regular rhythm, S1 normal heart sound, S2 normal heart sound and no murmurs GI normal to inspection, nondistended, normoactive bowel sounds, soft to palpation, non-tender and non-distended Extremity normal capillary refill, no clubbing, cyanosis or edema and no calf tenderness General Extremity: no tenderness to palpation of joints or extremities Skin General Skin Exam: no breakdown Neuro CN's II-XII intact bilaterally, no focal motor deficits, no sensory deficits noted and deep tendon reflexes 2+ bilaterally Motor Exam: strength 5/5 throughout and general weakness Psych thought process normal, cooperative and affect normal Appearance: appropriate Assessment & Plan Assessment/Plan (1) S/P total right hip arthroplasty: (2) Osteoarthritis: PLAN: Plan #Osteoarthritis s/p right total hip arthroplasty * Today's postop day 2. On Tylenol and tramadol. Patient was counseled by orthopedics that they should try to avoid narcotics as much as possible and to only use the tramadol for significant breakthrough pain. * Management as per orthopedics. #History of dementia with episodic sundowning * Patient follows up with neurology on outpatient basis and is on donepezil. Patient has had some sundowning episodes in the hospital and has had occasional combativeness. According to the this is not unusual for her and this may have been exacerbated by patient being in the hospital as well. Patient therefore going back home to her home environment will be beneficial. * To continue donepezil and to follow-up with neurology on outpatient basis. 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 #Hypertension: On metoprolol #History of breast cancer: S/p previous lumpectomy. On letrozole DVT prophylaxis: As per primary team. Patient stable for discharge from hospitalist standpoint. To follow-up with her neurologist on outpatient basis. Charges/Coding Visit Charges Inpatient E&M: 16540 Subs Hosp L2
[2024-05-12] MEDS: traMADol 50 MG Tablet PO (12:10)
[2024-05-12 13:48] VITALS: BP 139/64; PULSE 86; RESP 18; TEMP 37.1; O2SAT 95
--- NOTE | 2024-05-12 14:07 | PHA.DC_ITS ---
Pharmacy [facility] has performed discharge medication reconciliation and counseling for this patient. 1. ACETAMINOPHEN 1000MG PO TID 2. APIXABAN 2.5MG PO BID X 14 DAYS 3. FAMOTIDINE 20MG PO DAILY 4. SENNA/DOCUSATE 2T PO BID UNTIL FIRST BM, THEN TAKE PRN CONSTIPATION 5. TRAMADOL 50-100MG PO Q6H PRN PAIN The patient's discharge medication list was reviewed for discrepancies and discrepancies were resolved. The patient was counseled on the following discharge medications and changes in medications for homegoing were reviewed. The Reason for Use, instructions for use, and potential side effects were reviewed for all new medications. The patient's questions regarding all of their medications were answered. The patient was able to verbally demonstrate an understanding of their discharge medications. Patient counseled by director state pharmacy Medications at Discharge Home Medications letrozole 2.5 mg tablet 2.5 mg PO DAILY 08/20/22 metoprolol tartrate 100 mg tablet 50 mg PO BID 08/20/22 donepezil 5 mg tablet 5 mg PO QHS 04/08/24 cyanocobalamin (vitamin B-12) 500 mcg tablet (Vitamin B-12) 1,000 mcg PO DAILY 05/10/24 [id number] 8 mg-folic 400 mcg-K 50 mcg-lutein 300 mcg tablet (Centrum Silver Women) 1 tab PO DAILY 05/10/24 acetaminophen 500 mg tablet 1,000 mg (2 x 500 mg) PO TID #0 tabs 05/11/24 apixaban 5 mg tablet (Eliquis) 2.5 mg (1/2 x 5 mg) PO BID 14 days #28 tabs 05/11/24 famotidine 20 mg tablet 20 mg PO DAILY 30 days #30 tabs 05/11/24 sennosides 8.6 mg-docusate sodium 50 mg tablet (Stimulant Laxative Plus) 2 tab PO BID 3 days #12 tabs 05/11/24 tramadol 50 mg tablet 50 - 100 mg (1 - 2 x 50 mg) PO Q6H PRN PRN Pain Score 4-10 7 days #42 tabs 05/11/24
== END 2024-05-12 13:57 | disposition home health service (06) ==
LOC: MS3 05-12 07:06 → SDC 05-18 08:41 → AC 05-18 08:41 → SDC 05-18 08:42 → MS3 05-18 08:42
PROVIDERS: Anesthesiology; Physician Assistant Surgical; Admitting Provider Specialist; PCP Internal Medicine; Referring Provider Specialist; Visit Provider Specialist
PROC: (CPT 27284; principal; 2024-05-10 09:35)
DX: M16.11 Unilateral primary osteoarthritis, right hip (principal); F03.90 Unspecified dementia, unspecified severity, without behavioral disturbance, psychotic disturbance, mood disturbance, and anxiety; N18.30 Chronic kidney disease, stage 3 unspecified; Z86.718 Personal history of other venous thrombosis and embolism; E78.00 Pure hypercholesterolemia, unspecified; I12.9 Hypertensive chronic kidney disease with stage 1 through stage 4 chronic kidney disease, or unspecified chronic kidney disease; F05 Delirium due to known physiological condition; Z87.891 Personal history of nicotine dependence; Z79.899 Other long term (current) drug therapy; E66.9 Obesity, unspecified; Z68.31 Body mass index [BMI] 31.0-31.9, adult
CPT/HCPCS: 27130; 01214; 36415; 73501; 73502; 76000; 80048; 82040; 82962; 83735; 85025; 85027; 87081; 88305; 88311; 93005; 94668; 96361; 96365; 96366; 96372; 96375; 97162; 97166; 97530; 97535; 99221; 99252; C1776; J7120; A4216; G0378; G0463; J2405; J3475

== ENCOUNTER 2024-05-30 09:48 | Emergency (ER) | payer MEDICARE, BC, SELFPAY ==
[2024-05-30 09:50] VITALS: BP 161/66; PULSE 50; RESP 18; TEMP 35.8; O2SAT 97
--- NOTE | 2024-05-30 10:12 | RAD_ITS ---
INDICATION: pain, post op EXAMINATION/TECHNIQUE: X-RAY - XR Hip Unilateral with Pelvis when performed; 2-3 Views COMPARISON: Prior study dated: 05/10/2024 FINDINGS: PELVIC BONES: No displaced fracture, destructive or sclerotic lesions. Note that overlapping bowel shadows may however obscure fine detail. Sacroiliac joints are unremarkable. No widening of the pubic symphysis. HIPS: Right hip total arthroplasty in stable position. No new displaced fracture seen in this frontal view. SOFT TISSUES: No soft tissue swelling or gas. RAD/HIP, UNI W/ Pelvis 2-3 Views IMPRESSION: No significant change. Electronically Signed: Marc Howe MD at 11:27 EDT ,
--- NOTE | 2024-05-30 10:12 | RAD_ITS ---
INDICATION: lightheaded EXAMINATION/TECHNIQUE: X-RAY - XR Chest 1 View COMPARISON: Prior study dated: 02/27/2023 FINDINGS: LINES/DEVICES: None. LUNGS: No consolidation, edema or effusion. No pneumothorax. MEDIASTINUM AND CARDIOVASCULAR STRUCTURES: Cardiac silhouette not enlarged. Atherosclerotic calcifications of the aortic arch. Central airways and mediastinal contour are unremarkable. BONES AND SOFT TISSUES: Unremarkable. RAD/Chest 1 View (Portable) IMPRESSION: No radiographic evidence of acute cardiopulmonary disease. Electronically Signed: Marc Howe MD at 11:28 EDT ,
--- NOTE | 2024-05-30 10:12 | EKG12_ITS ---
Test Reason : Blood Pressure : / mmHG Vent. Rate : 050 BPM Atrial Rate : 050 BPM P-R Int : 214 ms QRS Dur : 080 ms QT Int : 468 ms P-R-T Axes : 048 016 046 degrees QTc Int : 426 ms Sinus bradycardia with 1st degree A-V block Otherwise normal ECG Confirmed by SINGH RICO, MAHAD ([id number]), script editor DORIS ROJAS ([id number]) on 05/31/2024 9:47:38 AM Referred By: Confirmed By:MAHAD WINTERS MD
--- NOTE | 2024-05-30 10:12 | VDLE_ITS ---
Reason For Study: RLE Pain RIGHT LEFT GSV is normal. CFV is compressible, spontaneous, phasic, CFV is compressible, spontaneous, phasic, competent, and demonstrates normal competent and demonstrates normal augmentation. augmentation. FV is compressible, spontaneous, phasic, competent and demonstrates normal augmentation. POP V is compressible, spontaneous, phasic, competent and demonstrates normal augmentation. T/P Trunk is compressible. PTV is compressible. RT PerV is compressible. Procedure This is a venous duplex using B-mode, color flow and spectral Doppler. Exam performed portable in ED. The exam was diagnostic. A preliminary report was called and/or faxed to Dr. Ray. VL/Venous Duplex US, Unilateral Interpretation Summary Deep veins of the right lower extremity are patent and compressible segmentally . There is no evidence of right lower extremity deep vein thrombosis. The right great sapheno us vein appears patent and compressible segmentally. Ordering Physician: Azalea Ray Referring Physician: Lloyd Lewis M.D. Performed By: Rogelio Yeh RVT
--- NOTE | 2024-05-30 10:14 | EDS_ITS ---
HPI History of Present Illness Chief Complaint: General Illness Informant: patient and spouse/S.O. Narrative Narrative: Patient is an 87-year-old female with history of dementia, Crohn's disease, DVT of the left lower extremity (after lung surgery in 2022) , dementia and Right total hip replacement on 05/10/[address] Price presenting from home with for home with worsening right hip pain, dizziness and difficulty ambulating. Patient is with her . He provides majority of the history. He states that yesterday they went and drove around [facility]. They are in the car for couple hours and came back. When they got back to the house she took about 5 steps and then said I cannot take another step and . She has had continued pain with weightbearing since. gave tramadol at 630 and Tylenol at 830 but she still having hard time ambulating. She denies any associated falls or numbness. She had been on Eliquis for DVT prophylaxis initially was last day and today she started aspirin. She is also complaining of nausea and lightheadedness. Denies any vertigo or spinning sensation. Denies any vomiting, change in bowel movements, blood in her stool, abdominal pain, fever or cough. Denies any chest pain or shortness of breath. No other complaints or concerns reported at this time. [facility] Medical History Pain DVT (deep venous thrombosis) Wears glasses Wears dentures Cancer Back pain Arthritis Restless legs Former smoker Shortness of breath on exertion History of edema History of stress test Hypertension Breast cancer Crohn's disease Home Medications ?Medication ?Instructions ?Recorded ?Last Taken ?Type letrozole 2.5 mg tablet 2.5 mg PO DAILY 08/20/22 05/09/24 History metoprolol tartrate 100 mg tablet 50 mg PO BID 08/20/22 05/10/24 History donepezil 5 mg tablet 5 mg PO QHS 04/08/24 05/09/24 History cyanocobalamin (vitamin B-12) 500 1,000 mcg PO DAILY 05/10/24 05/09/24 History mcg tablet (Vitamin B-12) [id number] 8 mg-folic 400 1 tab PO DAILY 05/10/24 05/09/24 History mcg-K 50 mcg-lutein 300 mcg tablet (Centrum Silver Women) acetaminophen 500 mg tablet 1,000 mg (2 x 500 mg) PO TID #0 05/11/24 Unknown Rx tabs apixaban 5 mg tablet (Eliquis) 2.5 mg (1/2 x 5 mg) PO BID 14 days 05/11/24 Unknown Rx #28 tabs famotidine 20 mg tablet 20 mg PO DAILY 30 days #30 tabs 05/11/24 Unknown Rx sennosides 8.6 mg-docusate sodium 2 tab PO BID 3 days #12 tabs 05/11/24 Unknown Rx 50 mg tablet (Stimulant Laxative Plus) tramadol 50 mg tablet 50 - 100 mg (1 - 2 x 50 mg) PO Q6H 05/11/24 Unknown Rx PRN PRN Pain Score 4-10 7 days #42 tabs ondansetron 4 mg disintegrating 4 mg PO Q8H PRN PRN Nausea #10 tabs 05/30/24 Unknown Rx tablet Allergy/AdvReac Type Severity Reaction Status Date / Time [id number] Reductase Allergy Swelling Verified 05/30/24 09:50 Inhibitor Surgical History History of lobectomy of lung History of bronchoscopy History of bunionectomy of right great toe History of bunionectomy of left great toe Hx of colonoscopy Hx of umbilical hernia repair History of bowel resection Hx of lumpectomy Social History Smoking Status: Former smoker substance use type: does not use ROS ROS ED Constitutional Constitutional ED: Reports other Details: lightheaded ; Denies chills or fever(s) Eyes Eyes: Denies change in vision Cardiovascular Cardiovascular: Denies chest pain or palpitations Respiratory/Chest Respiratory/Chest: Denies cough or dyspnea Gastrointestinal Gastrointestinal: Reports nausea; Denies abdominal pain, constipation, diarrhea or vomiting Genitourinary Genitourinary ED: Denies dysuria, hematuria or urinary frequency Musculoskeletal Musculoskeletal: Reports other Details: Right hip pain with ambulation?recent surgery Integumentary Denies rash Neurologic Neurologic: Denies headache(s), paresthesias or weakness Psychiatric Psychiatric: Denies anxiety EXAM Physical Exam Const Vital Signs: 05/30/24 09:50 05/30/24 10:28 05/30/24 11:49 Temperature 96.4 F L Temperature Source Temporal Pulse Rate 50 L 74 Respiratory Rate 18 18 Respiratory Pattern Normal Blood Pressure 161/66 H 154/65 H Blood Pressure Mean 97 94 Pulse Ox 97 95 Oxygen Delivery Method Room Air Room Air 05/30/24 13:00 05/30/24 15:00 05/30/24 17:00 Temperature 97.7 F L Temperature Source Pulse Rate 74 53 L 61 Respiratory Rate 18 16 16 Respiratory Pattern Blood Pressure 148/60 H 132/72 H 137/78 H Blood Pressure Mean 89 92 97 Pulse Ox 92 98 Oxygen Delivery Method Room Air Positive well nourished and well developed General Appearance ED: well developed and NAD HEENT Reports moist mucous membranes Eyes PERRL and EOMs intact bilaterally Eyes Narrative: No nystagmus appreciated Neck supple and no JVD Chest Wall inspection of chest normal and palpation of chest normal Resp normal respiratory effort and clear to auscultation bilaterally Auscultation: Negative for wheezes or diminished lung sounds Cardio regular rate and regular rhythm GI normal to inspection, nondistended, normoactive bowel sounds and non-tender Extremity Extremity Narrative: Mild tenderness with range of motion of the right hip which is consistent with the recent surgery. No obvious deformity. No pain with short arc range of motion. Pelvis is stable. General Extremety ED: Negative for edema General Extremity: Negative for edema Neuro Neuro Narrative: 5/5 strength of the lower extremity specifically on the right Sensorium / Orientation: alert Motor Exam: strength 5/5 throughout; Negative for general weakness Psych mental status grossly normal Skin no rashes or lesions noted Skin Narrative: Surgical incision of the right anterior lateral hip appears to be healing appropriately with no associated drainage, erythema or signs of infection MDM MDM MDM Narrative Medical decision making narrative: Patient is evaluated for lightheadedness and increased right hip pain. She is in a car for couple hours yesterday. is worried she could have a blood clot she does have a history of DVT. Patient denies any sensation of vertigo or room spinning. Differential is broad including postoperative complication, DVT, anemia, urinary tract infection, arrhythmia, electrolyte abnormality/RAYNE. Will obtain lab work, x-ray of the chest and right hip, venous duplex and urinalysis. Patient is given a small fluid bolus. Patient's lab work is remarkable for an elevated lipase. Lipase is 633. On reevaluation she does not have any pain. CT of abdomen pelvis is obtained because of this elevated lipase and she is reporting nausea and weakness. CT shows multiple gallstones and distended gallbladder but no other acute process. Right upper quadrant ultrasound was ordered in case patient actually has a gallstone pancreatitis. Right upper quadrant ultrasound shows gallstones with positive Yates sign and a mildly dilated common bile duct. Her liver enzymes are normal on my exam again she does not have new upper quadrant abdominal pain. Patient and now wanted go home. They state they came here because they are worried about a DVT of her right. Venous duplex is negative. Patient's, her and her daughter explained that patient has elevated lipase with these abnormalities and my concern is that she could have an acute process and involving her pancreas and possible gallstones and I would like to keep her in the hospital for further evaluation of this. Patient and her state they would prefer to go home and will follow-up outpatient. Patient is given [facility] for outpatient follow-up with general surgery encouraged follow-up with her primary care doctor as well. Encouraged to return the emergency room should they change her mind or she develop worsening symptoms. I then attempted to ambulate the patient because one of her chief complaint is that she was having a hard time walking at home. Patient did not want to ambulate and states they just want to go home. Patient was given water in the ER which she tolerated. She is given IV fluids. X-ray of the chest as well as the right hip do not show any acute process. This reviewed by myself as well as radiology. Lab Data Attestation: I reviewed the patient's lab results. Labs: Laboratory Results - last 24 hr 05/30/24 05/30/24 10:20 13:20 WBC 9.9 RBC 4.10 L Hgb 12.5 Hct 38.0 MCV 92.7 MCH 30.5 MCHC 32.9 RDW Std Deviation 52.2 H RDW Coeff of Carmen 15.6 H Plt Count 315 MPV 9.7 Immature Gran % (Auto) 0.300 Neut % (Auto) 68.6 Lymph % (Auto) 17.4 L [place] % (Auto) 10.1 H Eos % (Auto) 2.8 Baso % (Auto) 0.8 Absolute Neuts (auto) 6.8 Absolute Lymphs (auto) 1.72 Nucleated RBC % 0 Sodium 142 Potassium 3.5 Chloride 108 H Carbon Dioxide 27.0 Anion Gap 7 BUN 18 Creatinine 1.08 H Est GFR (MDRD) Af Amer 63 Est GFR (MDRD) Non-Af 52 L BUN/Creatinine Ratio 16.7 Glucose 102 Calcium 9.1 Total Bilirubin 0.40 AST 14 L ALT 17 Alkaline Phosphatase 204 H Troponin I High Sens 8 Total Protein 7.3 Albumin 3.0 L Globulin 4.3 H Albumin/Globulin Ratio 0.7 L Lipase 633 H Urine Color Yellow Urine Clarity Sl. Cloudy Urine pH 6.0 Ur Specific [place] 1.010 Urine Protein 15 H Urine Glucose (UA) Normal Urine Ketones Negative Urine Occult Blood Negative Urine Nitrite Negative Urine Bilirubin Negative Urine Urobilinogen Normal Ur Leukocyte Esterase Negative Urine RBC 0 SEEN Urine WBC 0 SEEN Ur Squamous Epith Cells 0 SEEN Urine Bacteria 0 SEEN Urine Mucus 0 SEEN Radiography Diagnostic Testing: Clinical Impression(s) from Imaging Studies Chest X-Ray 05/30/24 10:12 IMPRESSION: No radiographic evidence of acute cardiopulmonary disease. Electronically Signed: Marc Howe MD at 11:28 EDT Reading Location ID and State: [facility] / [place] Tel , Service support , Hip/Pelvis X-Ray 05/30/24 10:12 IMPRESSION: No significant change. Electronically Signed: Marc Howe MD at 11:27 EDT Reading Location ID and State: [facility] / [place] Tel , Service support , Abdomen/Pelvis CT 05/30/24 11:04 IMPRESSION: 1. No focal acute inflammatory process. 2. Distended gallbladder with multiple gallstones. 3. Diverticulosis without evidence of acute diverticulitis. 4. Right adrenal mass appears to be stable since previous examinations. Electronically Signed: Marc Howe MD at 13:21 EDT , Gallbladder Ultrasound 05/30/24 13:25 IMPRESSION: Gallstones with positive sonographic Yates''s sign and mildly dilated common bile duct. Nuclear medicine biliary scan or MRCP might be of value. Electronically Signed: Marc Howe MD at 15:58 EDT , Rhythm Strip Rhythm Strip: Sinus Rhythm Rate: 50 Ectopy: None EKG Initial EKG: Attestation: I personally reviewed and interpreted this EKG as follows: Comments: Sinus bradycardia at a rate of 50 bpm First-degree AV block with a ID interval [id number] Normal axis Normal QRS and QTc Normal ST segment Prior EKG tracings: available for review Prior: Changed (Patient on mildly bradycardic with first-degree AV block) Discharge Plan Triage Chief Complaint: General Illness ED Provider: Azalea Ray Dx/Rx/DC Orders Clinical Impression: Elevated lipase, Difficulty in walking, Gallstones Instructions: Lipase, ED Gallstones with Biliary Colic Prescriptions: New ondansetron 4 mg tablet,disintegrating 4 mg PO Q8H PRN PRN (Reason: Nausea) Qty: 10 0RF No Action metoprolol tartrate 100 mg tablet 50 mg PO BID Patient Comments: TAKE 1/2 TABLET BY MOUTH TWICE DAILY letrozole 2.5 mg tablet 2.5 mg PO DAILY Patient Comments: TAKE 1 TABLET BY MOUTH EVERY DAY donepezil 5 mg tablet 5 mg PO QHS Centrum Silver Women 8 mg iron-400 mcg-50 mcg tablet 1 tab PO DAILY cyanocobalamin (vitamin B-12) [Vitamin B-12] 500 mcg tablet 1,000 mcg PO DAILY acetaminophen 500 mg Tablet 1,000 mg PO TID Qty: 0 0RF Rx Instructions: Do not take more than 3000 mg Tylenol in a 24-hour period. Eliquis 5 mg Tablet 2.5 mg PO BID 14 Days Qty: 28 0RF Rx Instructions: Take for 2 weeks postoperatively for DVT prophylaxis due to past history of DVT. famotidine 20 mg Tablet 20 mg PO DAILY 30 Days Qty: 30 0RF sennosides-docusate sodium [Stimulant Laxative Plus] 8.6-50 mg Tablet 2 tab PO BID 3 Days Qty: 12 0RF Rx Instructions: Take until first bowel movement, then as needed tramadol 50 mg Tablet 50 - 100 mg PO Q6H PRN PRN (Reason: Pain Score 4-10) 7 Days Qty: 42 0RF Primary Care Provider: Lloyd Lewis Referrals: Rafi Tavares MD [Med Staff - Active Staff] - 1-2 Weeks Lloyd Lewis MD [Primary Care Provider] - Activity Restrictions/Additional Instructions: Drink lots of fluids. You do not have a blood clot or an abnormality your x-ray today. Your lab work did show an elevation of your lipase which could be consistent with pancreatitis. You also were found to have gallstones. Follow-u p with general surgery for your gallstones. Please follow-up with primary care doctor and they can monitor your lipase level. If you have worsening symptoms such as nausea, vomiting or abdominal pain please return to the emergency room. If you do not feel safe at home because of your ambulation/difficulty walking please return to the emergency room. Continue to follow-up with your surgeon as we discussed. Print Language: Angolan Disposition Disposition: Home, Self Care Discharge Date/Time: 05/30/24 17:34
[2024-05-30] MEDS: Ondansetron 4 MG/2 ML Vial IV (10:23)
[2024-05-30 10:31] LABS: Absolute Lymphocyte Count 1.72 X10^3/uL (0.83-4.51); Absolute Neutrophil Count 6.8 X10^3/uL (2.0-7.7); Basophil# 0.08 X10^3/uL; Basophil% 0.8 % (0-1); Eosinophil# 0.28 X10^3/uL; Eosinophils% 2.8 % (0-5); Hemoglobin 12.5 g/dL (12.0-15.0); Lymphocyte # 1.72 X10^3/ul (0.83-4.51); Lymphocyte % 17.4 % (19-41); Mean Corp Hgb Conc 32.9 g/dL (32-36); Mean Corpuscular Hgb 30.5 pg (27.0-32.0); Mean Corpuscular Volume 92.7 fL (81-99); Mean Platelet Vol. 9.7 fl (6.2-12.0); Monocyte% 10.1 % (0-10); NRBC Flagged by Analyzer 0 % (0-5); Neutrophil # 6.76 X10^3/uL (2.7-7.7); Neutrophil % 68.6 % (47-70); Platelet Count 315 K/mm3 (150-450); RBC Distribution Width CV 15.6 % (11.6-14.6); RBC Distribution Width SD 52.2 fl (35.1-43.9); White Blood Count 9.9 K/mm3 (4.4-11.0)
[2024-05-30 10:52] LABS: ALB/GLOB Ratio 0.7 RATIO (0.9-2.4); AST(SGOT) 14 U/L (15-37); Alanine Aminotransfer ALT/SGPT 17 U/L (13-56); Alkaline Phosphatase 204 U/L (45-117); Anion Gap 7 (5-15); BUN 18 mg/dL (7-18); BUN/Creat Ratio 16.7 RATIO (10-20); Calcium,Total 9.1 mg/dL (8.5-10.1); Chloride 108 mmol/L (98-107); Creatinine, Serum 1.08 mg/dL (0.55-1.02); EST Glomerular Filtration Rate 52 mL/min (>60); Est Glom Filt Rate - Afr Amer 63 mL/min (>60); Globulin 4.3 g/dL (2.2-4.2); Glucose 102 mg/dL (74-106); Lipase 633 U/L (13-75); Potassium 3.5 mmol/L (3.5-5.1); Protein, Total 7.3 g/dL (6.4-8.2); Sodium Level 142 mmol/L (136-145); Troponin-I HS 8 pg/mL (3.0-54.0)
--- NOTE | 2024-05-30 11:04 | CT_ITS ---
STUDY: CT ABDOMEN AND PELVIS WITH CONTRAST REASON FOR EXAM: Female, 79 years old. Elevated lipase RADIATION DOSAGE (If Supplied By Facility): CTDIvol = ( 17.36 ) mGy, DLP = ( 942.59 ) mGycm TECHNIQUE: IV 100mL Isovue-370 was administered. Transaxial images were obtained from the dome of the diaphragm to the symphysis pubis in the arterial, nephrographic and excretory phases. Multiplanar coronal and sagittal images were reformatted. The protocol utilizes one or more of the following dose reduction techniques: automated exposure control, adjustment of mA and/or kV according to patient size,and/or use of iterative reconstruction technique. COMPARISON: PET/CT of 09/25/2022 FINDINGS: The visualized lung bases are unremarkable. The visualized portions of the heart are within normal limits. Normal liver. Distended gallbladder with layering gallstones. Normal spleen. Normal pancreas. 3 cm heterogeneous right adrenal mass described. The previous CT of the chest of 08/20/2022. Small hiatal hernia. Normal caliber small bowel loops. Colonic diverticulosis. No evidence of acute diverticulitis. Significant motion artifacts limiting the examination. The ascending colon is not visualized and may be surgically removed. The appendix is not visualized. There is diffuse atherosclerotic calcification of the abdominal aorta, without a demonstrated aneurysm. No retroperitoneal adenopathy. Thickening of the left renal cortex. No evidence of hydronephrosis. Normal urinary bladder. No pelvic mass. Status post anterior abdominal wall hernia repair. Right hip arthroplasty creating significant artifacts. CT/Abdomen/Pelvis W IV Cont ONLY IMPRESSION: 1. No focal acute inflammatory process. 2. Distended gallbladder with multiple gallstones. 3. Diverticulosis without evidence of acute diverticulitis. 4. Right adrenal mass appears to be stable since previous examinations. Electronically Signed: Marc Howe MD at 13:21 EDT ,
[2024-05-30] MEDS: 0.9% Normal Saline (500mL Bag) 500 ML 1000 ML IV (11:35)
[2024-05-30 11:49] VITALS: BP 154/65; PULSE 74; RESP 18; O2SAT 95
[2024-05-30 13:00] VITALS: BP 148/60; PULSE 74; RESP 18
--- NOTE | 2024-05-30 13:25 | US_ITS ---
INDICATION: gallstones, + pancreatitis EXAMINATION: Ultrasound US Abdomen Limited (quadrant) TECHNIQUE: Toussaint scale and color doppler imaging was performed of the right upper quadrant. COMPARISON: CT scan of the abdomen and pelvis of the same day. FINDINGS: LIVER: The liver is prominent in size measuring about 17.6 cm in length and is echogenic in texture. The portal vein is patent with normal hepatopedal flow. No focal hepatic lesion. There is no free fluid. GALLBLADDER AND BILIARY TREE: Multiple gallstones are seen. There is adenomyomatosis. The gallbladder wall is normal measuring 1.5 mm. The proximal common bile duct measures 9 mm, which is dilated. Sonographic Yates''s sign: Positive. PANCREAS: No focal abnormality is demonstrated in the pancreas as seen on this exam. No pancreatic ductal dilatation. US/Gallbladder IMPRESSION: Gallstones with positive sonographic Yates''s sign and mildly dilated common bile duct. Nuclear medicine biliary scan or MRCP might be of value. Electronically Signed: Marc Howe MD at 15:58 EDT ,
[2024-05-30 13:31] LABS: Bacteria 0 SEEN /hpf (None Seen); Mucous, Urine 0 SEEN /hpf (<or=2+); Red Blood Cells-Urine 0 SEEN /hpf (0-5); Squamous Epithelial Cells - UA 0 SEEN /hpf (5-10); White Blood Cells 0 SEEN /hpf (0-5)
[2024-05-30 13:37] LABS: Color, Urine Yellow (Yellow); Glucose, Dipstick Normal (Normal); Ketone-Dipstick Negative (Negative); Leukocyte Esterase-Dipstick Negative /ul (Negative); Nitrite-Dipstick Negative (Negative); Occult Blood-Urine Negative /ul (Negative); Protein-Dipstick 15 mg/dl (Negative); Urine Bilirubin Dipstick Negative (Negative); Urine Clarity Sl. Cloudy (Clear); Urine Urobilinogen Normal (Normal)
[2024-05-30 15:00] VITALS: BP 132/72; PULSE 53; RESP 16; O2SAT 92
[2024-05-30] MEDS: Acetaminophen 325 MG Tablet 650 MG PO (16:20)
[2024-05-30 17:00] VITALS: BP 137/78; PULSE 61; RESP 16; TEMP 36.5; O2SAT 98
== END 2024-05-30 17:34 | disposition home or self-care (01) ==
PROVIDERS: Emergency Provider Emergency Medicine; PCP Internal Medicine; Visit Provider Emergency Medicine
DX: R74.8 Abnormal levels of other serum enzymes (principal); F03.90 Unspecified dementia, unspecified severity, without behavioral disturbance, psychotic disturbance, mood disturbance, and anxiety; K85.10 Biliary acute pancreatitis without necrosis or infection; R26.2 Difficulty in walking, not elsewhere classified; I10 Essential (primary) hypertension; Z79.01 Long term (current) use of anticoagulants; K83.8 Other specified diseases of biliary tract; M25.551 Pain in right hip; K82.8 Other specified diseases of gallbladder; K80.20 Calculus of gallbladder without cholecystitis without obstruction; Z87.891 Personal history of nicotine dependence; Z96.641 Presence of right artificial hip joint; R42 Dizziness and giddiness; Z86.718 Personal history of other venous thrombosis and embolism; Z79.82 Long term (current) use of aspirin; Z98.890 Other specified postprocedural states; K57.30 Diverticulosis of large intestine without perforation or abscess without bleeding
CPT/HCPCS: 71045; 73502; 74177; 76705; 80053; 81001; 83690; 84484; 85025; 93005; 93971; 96361; 96374; 96375; 99284; Q9967; A4216; J2405